=== PATIENT | female | born 1980 | race Caucasian/White ===

== ENCOUNTER 2020-08-31 19:22 | Emergency (ER) | payer OTHER, SELFPAY ==
[2020-08-31 19:43] VITALS: BP 145/94; PULSE 78; RESP 24; TEMP 36.5; O2SAT 100
--- NOTE | 2020-08-31 19:44 | ED.URI ---
HPI - URI/Sore Throat General Chief Complaint: Upper Respiratory Infection Stated Complaint: Cough,congestion Time Seen by Provider: 08/31/20 19:47 Source: patient Mode of arrival: ambulatory Limitations: no limitations History of Present Illness HPI Narrative: Mariluz Green is a 39 yo female with asthma Ms. to [facility] stating that she is having difficulty catching her breath but she has had cold symptoms for the last week they have worsened in the last 3 days and she has been using her albuterol inhaler couple times a day; she seems excited, with a cough which is nonproductive Related Data Home Medications Medication Instructions Recorded Confirmed alprazolam 08/31/20 ketorolac 08/31/20 mirtazapine mg 08/31/20 vit no.[id number] tablet 08/31/20 [Classic ] sertraline mg 08/31/20 Allergies Allergy/AdvReac Type Severity Reaction Status Date / Time codeine Allergy Unknown Verified 04/03/14 14:39 morphine Allergy Unknown Verified 04/03/14 14:39 OXYCODONE HCL Allergy Unknown Uncoded 04/03/14 14:39 Review of Systems Review of Systems: Narrative: CONSTITUTIONAL: Denies fever, chills, sweats. EYES: Denies visual changes, redness, discharge. ENT:has rhinorrhea, has congestion, no sore throat, otalgia. CARDIOVASCULAR: Denies chest pain, palpitations, edema. RESPIRATORY: Denies dyspnea, mild wheezing, productive cough GASTROINTESTINAL: Denies abdominal pain, nausea, vomiting, diarrhea. GENITOURINARY: Denies dysuria, hematuria, abnormal discharge SKIN: Denies rash or itching. NEUROLOGIC: Denies numbness, or focal weakness. PSYCHIATRIC: Denies anxiety or depression. [facility] Past Medical History Medical History Asthma Family History Family History Other No acute medical problems Social History Social History Smoking status: Never smoker Alcohol intake: never Comments At time of signature, I agree with nursing past medical, surgical, social and family history. There is no relevant family history pertinent to the presenting complaint. Exam Narrative: Exam Narrative: GENERAL: This is a well-nourished, well-developed patient, in moderate distress. Seems anxious and upset HEAD: normocephalic, atraumatic. EYES: Sclera clear/white. Vision is grossly intact. EARS: External ears normal, Hearing grossly intact. NOSE: External nose normal without nasal discharge, nares without redness, has rhinorrhea. THROAT: Mucous membranes moist, posterior pharynx erythema-able to swallow ambulating so I could hear her lungs, spoke to nurse in full sentences NECK: Neck supple, non-tender CARDIOVASCULAR: Regular rate and rhythm without murmurs, gallops, or rubs. RESPIRATORY: Clear to auscultation. Breath sounds equal bilaterally. Patient wheezes, no rales, or rhonchi. GASTROINTESTINAL: Abdomen soft, non-tender, SKIN: warm, intact with no suspicious lesions or rash, good texture and turgor. NEURO: awake, alert, and oriented to person, place and time. There were no obvious focal neurologic abnormalities. Steady gait EXTREMITIES: Normal range of motion. BACK: Nontender without deformity Course Course Emergency Course: Patient here complaining of some shortness of breath and upper respiratory symptoms including cough Strep test neg Rapid Covid neg Flu + Flu B Given Solu-Medrol, x5 days cough medication renewal of albuterol inhaler Zyrtec in the a.m.good handwashing, hydrate well Follow-up with PCP Vital Signs Vital signs: Vital Signs Temperature 97.7 F 08/31/20 19:43 Pulse Rate 78 08/31/20 19:43 Respiratory Rate 24 H 08/31/20 19:43 Blood Pressure 145/94 H 08/31/20 19:43 Pulse Oximetry 100 08/31/20 19:43 Temperature 97.7 F 08/31/20 19:55 Pulse Rate 78 08/31/20 19:55 Respiratory Rate 24 H 08/31/20 1
[2020-08-31] MEDS: methylPREDNISolone SOD SUCC 125 MG VIAL IM (19:54)
[2020-08-31 19:55] VITALS: BP 145/94; PULSE 78; RESP 24; TEMP 36.5; O2SAT 100
[2020-09-02 11:54] LABS: SARS-CoV-2 RNA PCR Negative
== END 2020-08-31 20:10 | disposition home or self-care (01) ==
PROVIDERS: Emergency Provider Nurse Practitioner; PCP Nurse Practitioner Family
DX: J11.1 Influenza due to unidentified influenza virus with other respiratory manifestations (principal); J45.21 Mild intermittent asthma with (acute) exacerbation; Z20.822 Contact with and (suspected) exposure to COVID-19
CPT/HCPCS: 87081; 87426; 87804; 87880; 96372; 99203; C9803; G0463; J2930; U0003; U0005

== ENCOUNTER 2020-09-14 09:17 | Emergency (ER) | payer OTHER, SELFPAY ==
--- NOTE | ~2020-09-14 | US_ITS ---
EXAMINATION: US pelvic complete w TV DATE: 09/14/2020 12:17 INDICATION: Pelvic pain. TECHNIQUE: Multiple transabdominal and transvaginal sonographic images of the pelvis were obtained. COMPARISON: CT abdomen and pelvis 09/14/2020 FINDINGS: TRANSABDOMINAL ULTRASOUND: The uterus measures 9.1 x 5.9 x 6.5 cm. There is no free fluid in the pelvis. TRANSVAGINAL ULTRASOUND: The endometrial complex measures 8 in thickness. There are nabothian cysts in the cervix measuring up to 15 mm. The right ovary is absent. The left ovary measures 2.7 x 1.8 x 1.6 cm. There is normal vas cular flow in the left ovary. IMPRESSION: 1. No etiology for the patient's symptoms. 2. Nabothian cysts in the cervix correlate with the CT abnormality. Reviewed, dictated and finalized at location B.
--- NOTE | ~2020-09-14 | CT_ITS ---
EXAMINATION: CT abdomen pelvis w con DATE: 09/14/2020 10:51 INDICATION: Right flank and lower quadrant abdominal pain. TECHNIQUE: Computed tomography (CT) of the abdomen and pelvis was performed with 100 mL Omnipaque-350 intravenous contrast. Automated exposure control and iterative reconstruction technique were employe d. The dose-length product was 226.14 mGy-cm. COMPARISON: 01/21/2013 FINDINGS: Lung bases are clear. Visualized inferior heart appears normal. No pericardial or pleural effusion. L iver, gallbladder, spleen, pancreas, bilateral adrenal glands and kidneys are normal. Bowels includin g the appendix are normal. Decompressed bladder is unremarkable. Tampon within the vaginal vault. Ant everted uterus with multiple small cystic structures at the cervix measuring up to 1.4 cm in maximal diameter which could represent independent nabothian cysts or a multicystic lesion. Bilateral adnexa are unremarkable. Small amount of likely physiologic free fluid in the pelvis. No abscess or free int raperitoneal gas. No pathologically enlarged abdominal or pelvic lymphadenopathy. There are Schmorl's nodes along several of the endplates in the mid and upper lumbar and lower thoracic spine. IMPRESSION: 1. No acute intra-abdominal/pelvic process. 2. Multiple small cystic structures at the cervix. This could represent multiple independent nabothia n cysts or a multiloculated cystic lesion with differential including tunnel cluster, uterine cervici tis, endocervical hyperplasia, metaplasia, endometriosis or adenoma malignum. Consider gynecologic c onsultation and either pelvic ultrasound or MRI for further evaluation. Reviewed, dictated and finalized at location A. IMPRESSION: 1. No acute intra-abdominal/pelvic process. 2. Multiple small cystic structures at the cervix. This could represent multipl e independent nabothian cysts or a multiloculated cystic lesion with differenti al including tunnel cluster, uterine cervicitis, endocervical hyperplasia, meta plasia, endometriosis or adenoma malignum. Consider gynecologic consultation a nd either pelvic ultrasound or MRI for further evaluation.
[2020-09-14 09:30] VITALS: BP 119/92; PULSE 75; RESP 20; TEMP 36.6; O2SAT 99
--- NOTE | 2020-09-14 09:44 | ED.ABDPAIN ---
HPI - Abdominal Pain General Chief Complaint: Abdominal Pain Stated Complaint: back, flank pain Time Seen by Provider: 09/14/20 09:28 Source: patient Mode of arrival: ambulatory Limitations: no limitations History of Present Illness HPI narrative: This is a 39 year old female that presents to the ER for right lower quadrant abdominal pain x 3 days. Reports the pain radiates from her right flank to right lower quadrant. Associated with nausea. Reports the pain worsened today which prompted her to be seen. Denies fever, vomiting, dysuria, hematuria, weakness, numbness or diarrhea. Related Data Home Medications Medication Instructions Recorded Confirmed mirtazapine [Remeron] 45 mg PO DAILY 09/14/20 Allergies Allergy/AdvReac Type Severity Reaction Status Date / Time codeine Allergy Unknown Vomiting Verified 09/14/20 09:25 morphine Allergy Unknown Vomiting Verified 09/14/20 09:25 OXYCODONE HCL Allergy Unknown Vomiting Uncoded 09/14/20 09:25 Review of Systems Review of Systems: Narrative: CONSTITUTIONAL: Denies fever GASTROINTESTINAL: Reports abdominal pain, nausea. Denies vomiting, or diarrhea. GENITOURINARY: Denies dysuria or hematuria. All systems reviewed & are unremarkable except as noted in HPI and below PMFSH Past Medical History Medical History (Updated 09/14/20 @ 13:57 by Brenna Olivia PA-C) Asthma History of spina bifida Family History Family History Other No acute medical problems Social History Social History Smoking status: Never smoker Alcohol intake: never Exam Narrative: Exam Narrative: GENERAL: Well-appearing, well-nourished, and in mild acute distress due to pain. HEAD: Normocephalic, atraumatic. EYES: EOMI. CHEST: Clear to auscultation. No respiratory distress. No wheezes rales or rhonchi HEART: Regular rate and rhythm. No murmur heard. Normal peripheral pulses. ABDOMEN: Soft, nondistended, normal active bowel sounds. Tender to palpation in the right lower quadrant, without guarding. Right sided CVA tenderness EXTREMITIES: Normal range of motion. No edema. SKIN: Warm, dry, no rash. NEURO: No focal deficits. Alert and oriented x3. Normal gait PSYCH: Normal mood and affect PELVIC: Normal external genitalia. Small amount of blood in the vaginal vault. Normal-appearing cervix, no cervical motion tenderness Course Vital Signs Vital signs: Vital Signs Temperature 98 F 09/14/20 09:30 Pulse Rate 75 09/14/20 09:30 Respiratory Rate 20 09/14/20 09:30 Blood Pressure 119/92 H 09/14/20 09:30 Pulse Oximetry 99 09/14/20 09:30 Temperature 98 F 09/14/20 09:30 Pulse Rate 71 09/14/20 12:23 Respiratory Rate 16 09/14/20 12:23 Blood Pressure 104/73 09/14/20 11:11 Pulse Oximetry 100 09/14/20 12:23 MDM - Abdominal Pain MDM Narrative Medical decision making narrative: Patient presents the emergency department for right-sided mid back pain radiating to the abdomen. She is afebrile and nontoxic-appearing. Vitals are stable. She is neurologically intact. CBC with mild leukocytosis to 11.1. Metabolic panel without concerning findings. Lipase is normal. UA without evidence of infection, does show red blood cells likely due to patient currently being on her menstrual cycle. Bedside test is negative. CT scan of the abdomen and pelvis is without acute findings. Shows multiple small cystic structures at the cervix. Recommend pelvic ultrasound or MRI for further evaluation. Pelvic ultrasound is also without acute findings. Nabothian cysts in the cervix correlate with the CT abnormality. Trichomonas was negative, chlamydia and gonorrhea were sent. Patient would like to follow-up for results. Reports no concern of STDs. Patient and family updated on case findings. She is stable and felt appropriate for further outpatient evaluation. She is to f
[2020-09-14 09:48] LABS: Basophils Absolute Auto 0.1 K/mm3 (0.0-0.1); Basophils Percent Auto 0.6 % (0.2-1.2); Eosinophils Absolute Auto 0.1 K/mm3 (0-0.3); Eosinophils Percent Auto 1.3 % (0-4.4); Hematocrit 38.9 % (37.0-47.0); Immature Granulocyte Absolute 0.05 K/mm3 (0.00-0.031); Immature Granulocyte Percent A 0.4 % (0-0.5); Lymphocytes Absolute Auto 1.86 K/mm3 (0.9-3.2); Lymphocytes Percent Auto 16.7 % (18.3-44.2); Mean Corpuscular HGB Conc 30.8 g/dl (32-36); Mean Corpuscular Hemoglobin 25.4 pg (26-34); Mean Corpuscular Volume 82.2 fl (80-100); Mean Platelet Volume 10.1 fl (7.4-10.4); Monocytes Absolute Auto 0.5 K/mm3 (0.1-0.6); Monocytes Percent Auto 4.6 % (2.6-8.5); Neutrophils Absolute Auto 8.5 K/mm3 (1.3-6.7); Neutrophils Percent Auto 76.4 % (45.5-73.1); Platelet Count Result 216 k/mm3 (150-375); Red Blood Count 4.73 M/mm3 (4.2-5.4); Red Cell Distribution Width 15.9 % (11.5-14.5); White Blood Count 11.1 K/mm3 (4.5-10.0)
--- NOTE | 2020-09-14 09:53 | PC.NURSE ---
Pt unable to provide urine sample at this time.
[2020-09-14 10:01] LABS: Alanine Aminotransferase 9 U/L (4-35); Albumin Level 4.5 g/dL (3.5-5.1); Alkaline Phosphatase 44 U/L (38-126); Anion Gap 5 mmol/L (8-16); Aspartate Amino Transferase 25 U/L (14-36); Bilirubin,Total 0.2 mg/dL (0.2-1.3); Blood Urea Nitrogen 8 mg/dL (7-17); Calcium 8.5 mg/dL (8.4-10.2); Carbon Dioxide 27 mmol/L (22-30); Chloride 106 mmol/L (98-107); Estimated CRCL calculation 125 ml/min; Estimated Glomerular Filt Rate > 60; Glucose 91 mg/dL (65-105); Lipase 145 U/L (23-300); Potassium 3.8 mmol/L (3.4-5.0); Sodium 138 mmol/L (137-145)
--- NOTE | 2020-09-14 10:25 | PC.NURSE ---
Pt attempting to provide urine sample at this time.
[2020-09-14 10:41] LABS: Add Urine Microscopic? YES; Appearance Urine Clear (Clear); Bilirubin Urine Negative (Negative); Blood Urine 2+ (Negative); Color Urine Yellow (Yellow); Glucose Urine UA Negative (Negative); Ketones Urine Negative (Negative); Leukocyte Esterase Ur Negative LEU/UL (Negative); Mucus Urine Rare /lpf; Nitrate Urine Negative (Negative); Protein Urine Negative (Negative); RBC Urine 21-50 /hpf (0-2); Specific Grav Ur 1.019 (1.001-1.035); Squamous Epithelial Cell Urine Many /hpf (Few); Urobilinogen Urine Negative mg/dL (<2.0); WBC Urine 0-3 /hpf
[2020-09-14] MEDS: ONDANSETRON INJ 4 MG/2 ML VIAL IV PUSH (11:09)
[2020-09-14] MEDS: MORPHINE SULFATE (*CRX) 2 MG/ML INJ IV PUSH (11:09)
[2020-09-14 11:11] VITALS: BP 104/73; PULSE 73; RESP 18; O2SAT 100
[2020-09-14 12:23] VITALS: PULSE 71; RESP 16; O2SAT 100
[2020-09-14] MEDS: KETOROLAC 30 MG/ML VIAL (*BKC) IV PUSH (12:39)
--- NOTE | 2020-09-14 13:49 | PC.NURSE ---
Physician speech and language assistant at bedside to discuss test results and treatment plan with pt.
[2020-09-14 14:05] VITALS: BP 106/77; PULSE 69; RESP 18; O2SAT 100
== END 2020-09-14 14:12 | disposition home or self-care (01) ==
PROVIDERS: Physician Assistant; Emergency Provider Emergency Medicine; PCP Nurse Practitioner Family
DX: M54.5 Low back pain (principal); J45.909 Unspecified asthma, uncomplicated; N88.8 Other specified noninflammatory disorders of cervix uteri; Q05.9 Spina bifida, unspecified
CPT/HCPCS: 36415; 74177; 76830; 76856; 80053; 81001; 81025; 83690; 85025; 87070; 87491; 87591; 87808; 96365; 96375; 99284; J0131; J1885; J2270; J2405; Q9967

== ENCOUNTER 2020-12-03 13:45 | Inpatient (IN) | payer OTHER, SELFPAY ==
[2020-12-03] VITALS (9 sets, daily range): BP systolic 92–126; BP diastolic 65–88; PULSE 67–110; RESP 16–18; TEMP 36.2–37.4; O2SAT 100; BMI 22.0
--- NOTE | ~2020-12-03 | CT_ITS ---
EXAMINATION: CT abdomen pelvis w con DATE: 12/03/2020 16:03 INDICATION: Epigastric pain TECHNIQUE: Computed tomography (CT) of the abdomen and pelvis was performed with 100 cc Omnipaque 350 intravenous contrast. The dose-length product was 252.32 mGy-cm. Automated exposure control and iter ative reconstruction technique were employed. COMPARISON: CT dated 09/14/2020 FINDINGS: Lung bases are unremarkable. Heart size normal. No significant pleural or pericardial effus ion. The liver, spleen, pancreas, adrenal glands and kidneys are unremarkable. Gallbladder is present . There are fluid-filled mildly distended small bowel loops with possible transition in the right mid abdomen, coronal image 32, suspicious for small bowel obstruction. No free air or free fluid. There is endometrial thickening with multiple cystic lesions at the cervix, likely nabothian cysts. There i s an involuting corpus luteal cyst measuring 2.1 cm and the left ovary. Small amount of free fluid in the pelvis. No acute osseous abnormality. IMPRESSION: 1. Limited small bowel with air-fluid levels. Possible transition point right mid abdomen. Findings s uspicious for small bowel obstruction. 2: Endometrial thickening. Involuting left ovarian corpus luteal cyst. Small amount of free fluid in the pelvis. Reviewed, dictated and finalized at location A. IMPRESSION: 1. Limited small bowel with air-fluid levels. Possible transition point right m id abdomen. Findings suspicious for small bowel obstruction. 2: Endometrial thickening. Involuting left ovarian corpus luteal cyst. Small am ount of free fluid in the pelvis.
--- NOTE | ~2020-12-03 | XR_ITS ---
XR abdomen NG/feed tube insert INDICATION: Evaluate G-tube position. TECHNIQUE: Limited KUB perform for evaluating NG tube . COMPARISON: 04/03/2014 FINDINGS: NG tube tip in the stomach. Visualized bowel gas pattern is unremarkable.There is residual contrast in nondilated renal collecting systems. IMPRESSION: 1: NG tube tip in the stomach. Reviewed, dictated and finalized at location A.
--- NOTE | ~2020-12-03 | XR_ITS ---
EXAMINATION: XR sm bowel follow through WS DATE: 12/04/2020 13:43 INDICATION: Small bowel obstruction TECHNIQUE: Advertising Specialist radiograph(s) of the abdomen was/were obtained. Oral contrast was administered, and sequential radiographs of the abdomen were obtained until oral contrast was noted to be in the proxi mal colon. COMPARISON: KUB dated 12/04/[address] dated 12/03/2020 FINDINGS: Advertising Specialist image demonstrates gas scattered throughout multiple loops of nondilated large and small bowel in the abdomen and pelvis. Nasogastric tube tip in proximal side port in the stomach. Transit time fr om the stomach to proximal colon was between 15 and 30 minutes. There is normal caliber and mucosal f old pattern throughout the small bowel. Terminal ileum is normal. IMPRESSION: 1. Normal small bowel follow-through. Reviewed, dictated and finalized at location A.
--- NOTE | ~2020-12-03 | XR_ITS ---
EXAMINATION: XR abdomen obstructive series DATE: 12/04/2020 05:47 INDICATION: Bowel obstruction. TECHNIQUE: Upright and supine views of the abdomen were obtained. COMPARISON: CT abdomen and pelvis 12/03/2020 FINDINGS: There are no dilated loops of bowel. There is a moderate volume of stool in the colon. No f ree intraperitoneal gas. The nasogastric tube tip is in the stomach. IMPRESSION: 1. Normal bowel gas pattern. Reviewed, dictated and finalized at location A.
[2020-12-03 14:16] LABS: Basophils Absolute Auto 0.1 K/mm3 (0.0-0.1); Eosinophils Absolute Auto 0.1 K/mm3 (0-0.3); Eosinophils Percent Auto 2.4 % (0-4.4); Hematocrit 36.2 % (37.0-47.0); Hemoglobin 11.1 g/dL (12.0-15.0); Immature Granulocyte Absolute 0.02 K/mm3 (0.00-0.031); Immature Granulocyte Percent A 0.4 % (0-0.5); Lymphocytes Absolute Auto 1.56 K/mm3 (0.9-3.2); Lymphocytes Percent Auto 30.6 % (18.3-44.2); Mean Corpuscular HGB Conc 30.7 g/dl (32-36); Mean Corpuscular Hemoglobin 24.6 pg (26-34); Mean Corpuscular Volume 80.3 fl (80-100); Mean Platelet Volume 9.8 fl (7.4-10.4); Monocytes Absolute Auto 0.5 K/mm3 (0.1-0.6); Monocytes Percent Auto 9.6 % (2.6-8.5); Neutrophils Absolute Auto 2.9 K/mm3 (1.3-6.7); Platelet Count Result 217 k/mm3 (150-375); Red Blood Count 4.51 M/mm3 (4.2-5.4); Red Cell Distribution Width 14.2 % (11.5-14.5); White Blood Count 5.1 K/mm3 (4.5-10.0)
[2020-12-03 14:25] LABS: Alanine Aminotransferase 10 U/L (4-35); Albumin Level 4.3 g/dL (3.5-5.1); Alkaline Phosphatase 50 U/L (38-126); Anion Gap 10 mmol/L (8-16); Aspartate Amino Transferase 24 U/L (14-36); Bilirubin,Total 0.2 mg/dL (0.2-1.3); Blood Urea Nitrogen 8 mg/dL (7-17); Calcium 8.6 mg/dL (8.4-10.2); Carbon Dioxide 25 mmol/L (22-30); Chloride 104 mmol/L (98-107); Estimated CRCL calculation 105 ml/min; Estimated Glomerular Filt Rate > 60; Glucose 91 mg/dL (65-105); Lipase 128 U/L (23-300); Potassium 3.7 mmol/L (3.4-5.0); Sodium 139 mmol/L (137-145)
--- NOTE | 2020-12-03 15:02 | ED.ABDPAIN ---
HPI - Abdominal Pain General Chief Complaint: Abdominal Pain <CRISTIANO Ayala - Last Filed: 12/03/20 18:00> Stated Complaint: abd pain <CRISTIANO Ayala - Last Filed: 12/03/20 18:00> Time Seen by Provider: 12/03/20 14:27 <CRISTIANO Ayala - Last Filed: 12/03/20 18:00> Source: patient <CRISTIANO Ayala - Last Filed: 12/03/20 18:00> Mode of arrival: ambulatory <CRISTIANO Ayala - Last Filed: 12/03/20 18:00> Limitations: no limitations <CRISTIANO Ayala - Last Filed: 12/03/20 18:00> History of Present Illness HPI narrative: Patient is a 40-year-old female who presents complaining of abdominal pain with nausea and diarrhea x2 to 3 days. Patient reports cramping upper abdominal pain that radiates to back. She denies urinary complaints. She reports taking [id number] medications without relief. She denies chest pain, sob, cough or fever. She denies all other complaints. <CRISTIANO Ayala - Last Filed: 12/03/20 18:00> MD elicited complaint: abdominal pain <CRISTIANO Ayala - Last Filed: 12/03/20 18:00> Related Data Home Medications: Home Medications Medication Instructions Recorded Confirmed mirtazapine [Remeron] 45 mg PO DAILY 09/14/20 <CRISTIANO Ayala - Last Filed: 12/03/20 18:00> Allergies/Adverse Reactions: Allergies Allergy/AdvReac Type Severity Reaction Status Date / Time codeine Allergy Unknown Vomiting Verified 09/14/20 09:25 morphine Allergy Unknown Vomiting Verified 09/14/20 09:25 OXYCODONE HCL Allergy Unknown Vomiting Uncoded 09/14/20 09:25 <CRISTIANO Ayala - Last Filed: 12/03/20 18:00> Review of Systems Review of Systems: Narrative: CONSTITUTIONAL: Denies fever, chills, or sweats. EYES: Denies visual changes, redness, or discharge. ENT: Denies rhinorrhea, congestion, sore throat, or otalgia. CARDIOVASCULAR: Denies chest pain, palpitations, or edema. RESPIRATORY: Denies cough or dyspnea. GASTROINTESTINAL: Reports abdominal pain with nausea and diarrhea GENITOURINARY: Denies dysuria or hematuria. SKIN: Denies rash or itching. MUSCULOSKELETAL: Denies back pain, joint pain, or myalgia. NEUROLOGIC: Denies headache, numbness, dizziness, or weakness. PSYCHIATRIC: Denies anxiety or depression. <CRISTIANO Ayala - Last Filed: 12/03/20 18:00> [facility] Past Medical History Medical History: Medical History Asthma History of spina bifida <CRISTIANO Ayala - Last Filed: 12/03/20 18:00> Family History Family History: Family History Other No acute medical problems <CRISTIANO Ayala - Last Filed: 12/03/20 18:00> Social History Social History: Social History (Updated 12/03/20 @ 15:06 by CRISTIANO Ayala) Smoking status: Never smoker Alcohol intake: never Substance use: never Living arrangements: with family <CRISTIANO Ayala - Last Filed: 12/03/20 18:00> Comments At the time of signature, I have reviewed and agree with nursing past medical, surgical, social, and family history unless otherwise noted. Please see nursing chart for further information. There is no relevant family history pertinent to the presenting complaint. <CRISTIANO Ayala - Last Filed: 12/03/20 18:00> Exam Narrative: Exam Narrative: GENERAL: Well-appearing, well-nourished, and in no acute distress. HEAD: Normocephalic, atraumatic. EYES: EOMI. No redness or drainage. Conjunctiva are normal. ENT: Mucous membranes pink and moist. CHEST: No respiratory distress. Clear to auscultation. HEART: Regular rate and rhythm. No murmur appreciated. Normal peripheral pulses. GI: Soft, generalized tenderness with palpation. No distention. Bowel sounds normal in all quadrants. MUSCULOSKELETAL: No bony tenderness. EXTREMITIES: Normal range of motion. No tiffanie
[2020-12-03 15:25] LABS: Add Urine Microscopic? YES; Amorphous Sediment Urine Few; Appearance Urine Cloudy (Clear); Bacteria Urine Trace /hpf; Bilirubin Urine Negative (Negative); Blood Urine Negative (Negative); Color Urine Yellow (Yellow); Glucose Urine UA Negative (Negative); Ketones Urine Negative (Negative); Leukocyte Esterase Ur 2+ LEU/UL (Negative); Mucus Urine Few /lpf; Nitrate Urine Negative (Negative); Protein Urine Negative (Negative); Specific Grav Ur 1.028 (1.001-1.035); Squamous Epithelial Cell Urine Many /hpf (Few); Urobilinogen Urine Negative mg/dL (<2.0)
[2020-12-03] MEDS: SODIUM CHLORIDE 0.9% IV 1,000 ML 999 ML IV CONT (16:45)
[2020-12-03] MEDS: MORPHINE SULFATE (*CRX) 4 MG/ML INJ IV PUSH ×2 (16:46→20:10)
[2020-12-03] MEDS: ONDANSETRON INJ 4 MG/2 ML VIAL IV PUSH ×2 (16:46→20:11)
[2020-12-03] MEDS: LORazepam INJ (*CRX) 2 MG/ML VIAL 1 MG IV PUSH (17:57)
--- NOTE | 2020-12-03 19:30 | PM.IMHP ---
H&P: HPI History of Present Illness Date/Time: 12/03/20 19:30 Chief Complaint: Abdominal pain. Narrative: This is a previously healthy 40-year-old female who presented to the emergency department earlier today via private vehicle from home for evaluation of abdominal pain. She reports a gradual onset of diffuse periumbilical cramping discomfort starting about 3 days ago. The cramping seems to radiate somewhat through to the back and she gives no significant aggravating or alleviating factors. She has been taking ibuprofen at home which is unfortunately not helped with the discomfort. Additionally she reports pretty significant nausea and she has been having small, loose stools with the last being this morning. CT of the abdomen and pelvis done the emergency department showed findings suspicious for small-bowel obstruction and she is being admitted in this setting. CT also showed thickened endometrium and a left ovarian corpus luteal cyst which she does have a history of as well as nabothian cysts of the cervix. She also mentions that she is close to starting her menstrual cycle. She has no history of ileus or bowel obstruction but does occasionally have problems with constipation. She denies hematemesis, melena, and hematochezia. No fever, chills, or sweats. No chest pain or shortness of breath. Review of Systems Review of Systems: Narrative: Twelve systems were reviewed with pertinent positives and negatives as per HPI. Except as documented, all other systems were reviewed and are negative. [facility] Past Medical History Medical History (Updated 12/03/20 @ 23:17 by Bibi Tello PA-C) Anxiety Asthma Spina bifida Surgical History Surgical History (Updated 12/03/20 @ 23:13 by Bibi Tello PA-C) History of arthroscopic knee surgery History of dilation and curettage History of tubal ligation Family History Family History (Updated 12/03/20 @ 23:14 by Bibi Tello PA-C) Other Cancer Cerebrovascular accident Hypertension Social History Social History (Updated 12/03/20 @ 23:14 by Bibi Tello PA-C) Social History: Surrogate decision maker: dana Etienne?. Code status: Full code. Smoking status: Never smoker Alcohol intake: never Substance use: never Living arrangements: with family Additional living arrangements comments: Resides in [place] with her fiance. Occupation/Education: occupation Additional occupation/education comments: Works at [employer]. Gender identity (if verbalized by the patient): Female Spiritual care concerns: No Meds Home Medications and Allergies Home Medications Medication Instructions Recorded Confirmed Type cyclobenzaprine 10 mg PO TID PRN #10 tablet 09/14/20 Rx mirtazapine [Remeron] 45 mg PO DAILY 09/14/20 History Allergies Allergy/AdvReac Type Severity Reaction Status Date / Time codeine Allergy Unknown Vomiting Verified 12/03/20 20:15 morphine Allergy Unknown Vomiting Verified 12/03/20 20:15 OXYCODONE HCL Allergy Unknown Vomiting Uncoded 09/14/20 09:25 Vital Signs Vital Signs - 24 hr 12/03/20 14:06 12/03/20 15:30 12/03/20 15:32 Temperature 99.3 F 97.9 F Pulse Rate 77 74 67 Respiratory Rate 18 18 Blood Pressure 102/65 105/78 101/69 Pulse Oximetry 100 100 12/03/20 15:33 12/03/20 15:34 12/03/20 16:48 Temperature Pulse Rate 77 110 H 69 Respiratory Rate 18 Blood Pressure 97/73 L 92/71 L 126/79 Pulse Oximetry 100 12/03/20 18:13 12/03/20 19:48 12/03/20 20:08 Temperature 98.3 F 98.1 F 97.1 F L Pulse Rate 91 77 67 Respiratory Rate 16 17 16 Blood Pressure 113/88 107/74 112/70 Pulse Oximetry 100 100 100 Exam Narrative: Exam Narrative: General: Mildly ill-appearing female sitting up in bed. She gags frequently on the NG tube. Weight: 63.9 kg. BMI: 22.1. HEENT: PERRL, EOMI. NG tube in left naris, draining colorless, slightly opaque fluid with mucoid particulates. Scle
--- NOTE | 2020-12-03 19:50 | ADMGEN ---
This patient, Mariluz Green, was admitted to Medical Room 342-01. Patient/family oriented to hospital policies and general routines including ID bracelet, bed and alarms, visiting hours, pain management, procedures, bathroom and other care routines, personal items, smoking policy, room service/diet, and visiting hours. Information on how to activate the Rapid Response Team has been discussed. Patient/Family are encouraged to report perceived risks to care and to ask questions if they do not understand what they are told or what they should do.
[2020-12-03] MEDS: SODIUM CHLORIDE 0.9% IV 1,000 ML 125 ML IV CONT (20:00)
[2020-12-03] MEDS: PHENOL/SOD PHENO SPRAY CHERRY (*BKC) 1 SPRAY MUCOUS MEM (21:00)
[2020-12-04] MEDS: MORPHINE SULFATE (*CRX) 2 MG/ML INJ IV PUSH ×6 (00:17→20:49)
[2020-12-04] MEDS: PHENOL/SOD PHENO SPRAY CHERRY (*BKC) 1 SPRAY MUCOUS MEM ×2 (04:28→10:35)
--- NOTE | 2020-12-04 04:33 | PC.NURSE ---
Patient complained of pain in her abdomen rating an 8/10. PRN Morphine was administered to the patient via her IV Port. After administration, pt stated, it didn't even go in there. I didn't feel it. This RN explained and showed her that the IV flushes and has excellent blood return, therefore it is in the vein.
[2020-12-04 05:08] VITALS: BP 109/68; PULSE 66; RESP 16; TEMP 36.1; O2SAT 100
[2020-12-04 06:34] LABS: Anion Gap 7 mmol/L (8-16); Blood Urea Nitrogen 5 mg/dL (7-17); Calcium 8.1 mg/dL (8.4-10.2); Carbon Dioxide 25 mmol/L (22-30); Chloride 108 mmol/L (98-107); Estimated CRCL calculation 105 ml/min; Estimated Glomerular Filt Rate > 60; Glucose 84 mg/dL (65-105); Magnesium 1.8 mg/dL (1.6-2.3); Potassium 3.3 mmol/L (3.4-5.0); Sodium 140 mmol/L (137-145)
[2020-12-04 08:39] VITALS: O2SAT 99
[2020-12-04] MEDS: POTASSIUM CHLORIDE 20 MEQ PACKET (FOR LIQUID) PO (09:20)
--- NOTE | 2020-12-04 11:36 | PM.CNGS ---
Assessment and Plan Assessment and plan (1) Small bowel obstruction: Code(s): K56.609 - Unspecified intestinal obstruction, unspecified as to partial versus complete obstruction Status: Acute Assessment and Plan: Ileus versus small bowel obstruction. CT scan reviewed and discussed with the patient in detail. There is evidence of a possible small bowel obstruction with potential transition point in the right mid abdomen. She is showing signs of clinical improvement already this morning and reporting flatus. Her abdominal exam is benign. Abdominal films this morning show no dilated loops of small bowel and some stool in the colon. NG output overnight likely high from intake of large amounts of ice chips. I will go ahead and order a Gastrografin small bowel follow through today to further assess the possible small bowel obstruction. If the contrast moves through to the colon, then we can remove the NG tube and start her on clear liquids. For now, continue NG tube decompression, NPO, IV fluids, and analgesics as needed. Thank you for allowing us to see the patient in consultation and we will continue to follow along with you. (2) Abnormal urinalysis: Code(s): R82.90 - Unspecified abnormal findings in urine Status: Acute Assessment and Plan: She is asymptomatic. The abnormal UA is likely contaminated. Abx deferred by Hospitalist. Additional Plan I have discussed the patient's case and plan of care with Dr. York. History of Present Illness Consult details Consult date: 12/04/20 Reason for consult: other (Small-bowel obstruction) Requesting physician: Sadia Hodges FNP Narrative: This is a 40-year-old female who was otherwise healthy, who presented to the emergency department with complaints of nausea, diarrhea, and upper abdominal pain. She reports having an onset of nausea and diarrhea 2 days ago. Denies any vomiting. She then developed cramping upper abdominal pain yesterday. This pain was persistent and continued through the day, therefore she presented to the emergency department for further evaluation. CT scan of abdomen and pelvis showed mildly dilated fluid-filled small bowel with a possible transition in the right mid abdomen, suspicious for small bowel obstruction. CT also showed thickened endometrium and a left ovarian corpus luteal cyst, which she has a known history of, and noted was nabothian cysts of the cervix. The patient was admitted for the possible small bowel obstruction. She had an NG-tube placed and was made NPO. Our service has been consulted for evaluation of a possible small-bowel obstruction. The patient is now seen on medical floor. She reports feeling better this morning with no abdominal pain after receiving IV morphine this morning. She has not had a bowel movement since yesterday morning. She reports flatus. Her NG output was 1300 cc overnight, but per the nurse she had a large quantity of ice chips overnight. She has had her NG tube clamped for the past hour after receiving KCL through her NG tube, and denies any nausea with this being clamped. Her only previous abdominal surgery includes a laparoscopic tubal ligation about 10 years ago, and a laparoscopic right oophorectomy about 1 year ago. She denies a history of small-bowel obstructions in the past or any previous pain similar to this. No close contacts with similar symptoms. No recent antibiotic use. Review of Systems Review of Systems: All systems reviewed & are unremarkable except as noted in HPI and below Constitutional: Constitutional: Reports as per HPI, Denies chills, Denies fatigue and Denies fever(s) ENT: Reports system reviewed and no additional complaints, except as documented, Reports Normal hearing present and Denies dizziness Cardiovascular: Cardiovascular: Reports no additional cardiovascular complaints, Denies chest pain and Denies leg edema Respiratory: Respiratory: Reports no additional respiratory
--- NOTE | 2020-12-04 12:17 | PM.IMPN ---
Progress Note: A&P Assessment and Plan (1) Small bowel obstruction: Code(s): K56.609 - Unspecified intestinal obstruction, unspecified as to partial versus complete obstruction Status: Acute Assessment and Plan: Patient presents with abdominal pain. SCT showed fluid-filled mildly distended small bowel loops with possible transition in the right mid abdomen c/w pSBO. NGT placed. KUB this morning was normal. NGT clamped and SBFT ordered and results pending. Pull NGT if SBFT series okay and start diet. Encouraged patinet to be out of bed walking in halls as toelrated. (2) Abnormal urinalysis: Code(s): R82.90 - Unspecified abnormal findings in urine Status: Acute Assessment and Plan: UA noted with many squamous epithelial cells. Did not prompt a culture. Suspect contaminated specimen. (3) DVT prophylaxis: Code(s): Z29.9 - Encounter for prophylactic measures, unspecified Status: Acute Assessment and Plan: SCDs Subjective Date/time seen: 12/04/20 12:17 Interval history: 40yo female with anxiety and asthma here for abdominal pain. Patient feels better but stil with abdominal pain. NGT clamped this morning around 930am. No flatus or BMs. No n/v. No CP or SOB. Exam Narrative: Exam Narrative: AF 96.9 109/68 66 16 100%ra Gen - NARD Chest - CTA bilaterally, nml RR CV - RRR S1/S2 Abd - soft. Nondistended. Diffusely tender but no guarding. no rebound. Positive bowel sounds Ext - No pedal edema Psych - depressed mood Skin - Warm and dry Objective Data Vital Signs Vital Signs: Vital Signs - 24 hr 12/03/20 14:06 12/03/20 15:30 12/03/20 15:32 Temperature 99.3 F 97.9 F Pulse Rate 77 74 67 Respiratory Rate 18 18 Blood Pressure 102/65 105/78 101/69 Pulse Oximetry 100 100 12/03/20 15:33 12/03/20 15:34 12/03/20 16:48 Temperature Pulse Rate 77 110 H 69 Respiratory Rate 18 Blood Pressure 97/73 L 92/71 L 126/79 Pulse Oximetry 100 12/03/20 18:13 12/03/20 19:48 12/03/20 20:08 Temperature 98.3 F 98.1 F 97.1 F L Pulse Rate 91 77 67 Respiratory Rate 16 17 16 Blood Pressure 113/88 107/74 112/70 Pulse Oximetry 100 100 100 12/04/20 05:08 12/04/20 08:39 Temperature 96.9 F L Pulse Rate 66 Respiratory Rate 16 Blood Pressure 109/68 Pulse Oximetry 100 99 Intake/Output Intake/Output: Intake & Output 12/01/20 12/02/20 12/03/20 12/04/20 23:59 23:59 23:59 23:59 Intake Total 1170 240 Output Total 200 1700 Balance 970 -1460 Meds/Results Medications: Active Medications Generic Name Dose Route Start Last Admin Trade Name Freq PRN Reason Stop Dose Admin Sodium Chloride 1,000 mls @ 75 mls/hr 12/03/20 18:00 12/03/20 23:36 Normal Saline Iv IV CONT 75 mls/hr .[id number] DOMENIC Infusion Morphine Sulfate 2 mg 12/03/20 23:20 12/04/20 10:29 Morphine Sulfate (*Crx) 2 Mg/Ml Inj IV PUSH 2 mg Q4H PRN Administration Pain Rated 7-10 Ondansetron HCl 4 mg 12/03/20 18:00 12/03/20 20:11 Ondansetron Inj 4 Mg/2 Ml Vial IV PUSH 4 mg Q4H PRN Administration Nausea Phenol 1 spray 12/03/20 20:29 12/04/20 10:35 Phenol/Sod Pheno [place] [facility] (*Bkc) MUCOUS MEM 1 spray PRN PRN Administration Sore Throat Radiology Results: ITS Impressions Abdomen/Pelvis CT 12/03/20 16:13 IMPRESSION: 1. Limited small bowel with air-fluid levels. Possible transition point right mid abdomen. Findings suspicious for small bowel obstruction. 2: Endometrial thickening. Involuting left ovarian corpus luteal cyst. Small amount of free fluid in the pelvis. Abdomen X-Ray 12/04/20 06:29 IMPRESSION: 1. Normal bowel gas pattern. Labs Labs: Laboratory Results - last 24 hr 12/03/20 12/03/20 12/03/20 14:08 14:08 15:14 WBC 5.1 RBC 4.51 Hgb 11.1 L Hct 36.2 L MCV 80.3 MCH 24.6 L MCHC 30.7 L RDW 14.2 Plt Count 217 MPV 9.8 Immature Gran % (Auto
[2020-12-04] MEDS: SODIUM CHLORIDE 0.9% IV 1,000 ML 75 ML IV CONT (12:27)
[2020-12-04] MEDS: ONDANSETRON INJ 4 MG/2 ML VIAL IV PUSH (13:25)
[2020-12-04 14:00] VITALS: BP 115/70; PULSE 72; RESP 20; TEMP 36.4; O2SAT 100
[2020-12-04 20:16] VITALS: BP 115/67; PULSE 76; RESP 16; TEMP 36.1; O2SAT 100
[2020-12-04] MEDS: MIRTAZAPINE 15 MG TABLET 45 MG PO (20:49)
[2020-12-05] MEDS: SODIUM CHLORIDE 0.9% IV 1,000 ML 75 ML IV CONT (02:08)
[2020-12-05 06:00] VITALS: BP 90/62; PULSE 55; RESP 16; TEMP 35.8; O2SAT 99
[2020-12-05 06:22] LABS: Anion Gap 6 mmol/L (8-16); Blood Urea Nitrogen 3 mg/dL (7-17); Calcium 8.1 mg/dL (8.4-10.2); Carbon Dioxide 24 mmol/L (22-30); Chloride 110 mmol/L (98-107); Estimated CRCL calculation 124 ml/min; Estimated Glomerular Filt Rate > 60; Glucose 81 mg/dL (65-105); Magnesium 1.8 mg/dL (1.6-2.3); Potassium 3.5 mmol/L (3.4-5.0); Sodium 140 mmol/L (137-145)
[2020-12-05] MEDS: ACETAMINOPHEN 325 MG TABLET 650 MG PO (08:58)
--- NOTE | 2020-12-05 12:28 | P.PNGS_ITS ---
Progress Note: A&P Assessment and Plan (1) Small bowel obstruction: Code(s): K56.609 - Unspecified intestinal obstruction, unspecified as to partial versus complete obstruction Status: Acute Assessment and Plan: * Resolved. No structural/mechanical obstruction identified. Possibly gastroenteritis related. OK to advance diet and discharge per Hospitalist service. No surgical follow up needed. Subjective Subjective Date/Time Seen: 12/05/20 12:28 Interval history: Tolerating diet. Bowels moving. No more nausea or vomiting. Exam GI: Inspection: non-distended GI Palp: Yes Soft to palpation, No Tenderness to palpation present (GI), No Guarding due to palpation present (GI) and No Rebound tenderness present Auscultation: normal bowel sounds Objective Data Vital Signs Vital Signs: Vital Signs - 24 hr 12/04/20 14:00 12/04/20 20:16 12/05/20 06:00 Temperature 36.4 C 36.1 C L 35.8 C L Pulse Rate 72 76 55 L Respiratory Rate 20 16 16 Blood Pressure 115/70 115/67 90/62 L Pulse Oximetry 100 100 99 Intake/Output Intake/Output: Intake & Output 12/02/20 12/03/20 12/04/20 12/05/20 23:59 23:59 23:59 23:59 Intake Total 1170 2340 2040 Output Total 200 1700 Balance 608 196 0652 Meds/Results Medications: Active Medications Generic Name Dose Route Start Last Admin Trade Name Freq PRN Reason Stop Dose Admin Acetaminophen 650 mg 12/05/20 08:47 12/05/20 08:58 Acetaminophen 325 Mg Tablet PO 650 mg Q6H PRN Administration Mild Pain (1-3) or Fever Mirtazapine 45 mg 12/04/20 21:00 12/04/20 20:49 Mirtazapine 15 Mg Tablet PO 45 mg HS DOMENIC Administration Ondansetron HCl 4 mg 12/03/20 18:00 12/04/20 13:25 Ondansetron Inj 4 Mg/2 Ml Vial IV PUSH 4 mg Q4H PRN Administration Nausea Radiology Results: ITS Impressions Abdomen/Pelvis CT 12/03/20 16:13 IMPRESSION: 1. Limited small bowel with air-fluid levels. Possible transition point right mid abdomen. Findings suspicious for small bowel obstruction. 2: Endometrial thickening. Involuting left ovarian corpus luteal cyst. Small amount of free fluid in the pelvis. Abdomen X-Ray 12/04/20 06:29 IMPRESSION: 1. Normal bowel gas pattern. Small Bowel X-Ray 12/04/20 13:48 IMPRESSION: 1. Normal small bowel follow-through. Labs Labs: Laboratory Results - last 24 hr 12/05/20 05:50 Sodium 140 Potassium 3.5 Chloride 110 H Carbon Dioxide 24 Anion Gap 6 L BUN 3 L Creatinine 0.50 L Estim Creat Clear Calc 124 Estimated GFR > 60 Glucose 81 Calcium 8.1 L Magnesium 1.8 Quality VTE Prophylaxis VTE prophylaxis: mechanical ordered
--- NOTE | 2020-12-05 13:57 | PM.DS ---
DS: Admitting Diagnosis Admitting Diagnosis Admitting Diagnosis: Abdominal pain DS: Discharge Diagnosis Discharge Diagnosis (1) Small bowel obstruction: Code(s): K56.609 - Unspecified intestinal obstruction, unspecified as to partial versus complete obstruction Status: Acute Assessment and Plan: Patient presents with abdominal pain. CT Abdomen/Pelvis showed fluid-filled mildly distended small bowel loops with possible transition in the right mid abdomen c/w pSBO. NGT placed. KUB the next was normal. NGT clamped and SBFT ordered. SBFT results wee normal so NGT removed and she was started on clear liquids. Diet was advanced as she toelrated it. She did well and was able to be discharged home on 12/05/20. (2) Abnormal urinalysis: Code(s): R82.90 - Unspecified abnormal findings in urine Status: Acute Assessment and Plan: UA noted with many squamous epithelial cells. This did not prompt a culture. Suspect contaminated specimen. DS: Summary Hospital Course Reason for hospitalization: 40yo female with anxiety and asthma here for abdominal pain. please see H&P for details. Hospital Course: Please see above for details of hospital course Status at Discharge Cognitive/behavioral status at discharge: stable Time Spent with Patient Time attestation: Total time spent providing and/or coordinating discharge services: 32 minutes Time spent: Greater than 30 minutes Exam Narrative: Exam Narrative: AF 96.5 90/62 55 16 99%ra Gen - NARD Chest - CTA bilaterally, nml RR CV - RRR S1/S2 Abd - soft. Nondistended. mild difuse tenderness without guarding. +BS Ext - No pedal edema Psych - mood improved Skin - Warm and dry DS: Data Data Completed and Pending Labs on day of discharge: Labs from last 24 hours 12/05/20 05:50 Sodium 140 Potassium 3.5 Chloride 110 H Carbon Dioxide 24 Anion Gap 6 L BUN 3 L Creatinine 0.50 L Estim Creat Clear Calc 124 Estimated GFR > 60 Glucose 81 Calcium 8.1 L Magnesium 1.8 Discharge Plan Discharge Attending physician on discharge: Beto Ndiaye Consulting providers: Jonathon York Discharging Clinician: Beto Ndiaye Anticipated Discharge Date/Time: 12/05/20 14:03 Patient Disposition: Home, Self-Care Activity: as tolerated Diet: regular Discharge Instructions: Please avoid large gathering, wear face coverings in public and practice social distance. Contact your doctor or call 911 and come to the Emergency Room if you have worsening abdominal pain or other worrisome symptoms. Avoid NSAIDs (ibuprofen, naproxen, Aleve). Tylenol is safe to take. Follow-up with your primary care provider in 1-2 weeks. Please call for appointment. Patient Instructions: Antibiotic Form, Pain Management (DC), Bowel Obstruction (DC) Stand Alone Forms: General Discharge Information Follow-up/Referrals: Nick,HENOK Balderas [Primary Care Provider] - Call for Appointment Discharge Medications: Continued mirtazapine [Remeron] 45 mg Tablet 45 mg PO DAILY RF: 0 cyclobenzaprine 10 mg tablet 10 mg PO TID PRN (Reason: muscle spasm) Qty: 10 RF: 0 Date of admission: 12/03/20 18:27 Primary Care Provider: NickSherrie Admitting Provider: Parish Cochran Attending physician on admission: Parish Cochran Condition: Stable Quality VTE Prophylaxis VTE prophylaxis: mechanical ordered
[2020-12-05 14:00] VITALS: BP 92/57; PULSE 72; RESP 20; TEMP 35.8; O2SAT 100
== END 2020-12-05 15:59 | disposition home or self-care (01) | DRG 247 ==
LOC: ANHED 17:59 → ANH3MED 23:03
PROVIDERS: Emergency Medicine; Physician Assistant; Admitting Provider Family Medicine; Emergency Provider Nurse Practitioner; PCP Nurse Practitioner Family; Visit Provider Internal Medicine
DX: K56.609 Unspecified intestinal obstruction, unspecified as to partial versus complete obstruction (principal); R82.90 Unspecified abnormal findings in urine; J45.909 Unspecified asthma, uncomplicated; F41.9 Anxiety disorder, unspecified; Q05.9 Spina bifida, unspecified; Z90.721 Acquired absence of ovaries, unilateral
CPT/HCPCS: 36415; 74019; 74177; 74250; 80048; 80053; 81001; 81025; 83690; 83735; 85025; 96361; 96374; 96375; 99285; A9270; J2060; J2270; J2405; J7030; Q9967

== ENCOUNTER 2021-01-30 15:03 | Emergency (ER) | payer OTHER, SELFPAY ==
--- NOTE | 2021-01-30 15:59 | PC.NURSE ---
left prior to triage. not avail when name called.
== END 2021-01-31 04:40 | disposition left against medical advice (07) ==
LOC: ANHED 17:32
PROVIDERS: PCP Nurse Practitioner Family
DX: Z53.21 Procedure and treatment not carried out due to patient leaving prior to being seen by health care provider (principal)
CPT/HCPCS: 99199

== ENCOUNTER 2021-01-30 22:04 | Emergency (ER) | payer OTHER, SELFPAY ==
--- NOTE | ~2021-01-30 | CT_ITS ---
EXAMINATION: CT abdomen pelvis w con DATE: 01/31/2021 03:46 INDICATION: Bilateral lower abdominal pain radiating to the back. TECHNIQUE: Computed tomography (CT) of the abdomen and pelvis was performed with 100 mL Omnipaque 350 intravenous contrast. Automated exposure control and iterative reconstruction technique were employe d. The dose-length product was 269.31 mGy-cm. COMPARISON: CT abdomen and pelvis 12/03/2020 FINDINGS: The visualized portions of the lung bases demonstrate mild atelectasis. No pleural effusion . The heart size is normal. No pericardial effusion. The liver, gallbladder, spleen, pancreas, adrena l glands, and right kidney are normal. There is a 2 mm stone in left kidney. The bladder is distended . There are no dilated loops of bowel. The appendix is normal. Left ovarian vein is enlarged, consist ent with pelvic venous insufficiency. There are no pathologically enlarged lymph nodes. There is no f ree intraperitoneal fluid. There is mild lumbar spondylosis. IMPRESSION: 1. Pelvic venous insufficiency. Reviewed, dictated and finalized at location A.
[2021-01-30 22:58] VITALS: BP 119/82; PULSE 95; RESP 17; TEMP 37.3; O2SAT 100
[2021-01-30 23:12] LABS: Basophils Absolute Auto 0.1 K/mm3 (0.0-0.1); Basophils Percent Auto 0.7 % (0.2-1.2); Eosinophils Absolute Auto 0.1 K/mm3 (0-0.3); Eosinophils Percent Auto 0.6 % (0-4.4); Hematocrit 34.6 % (37.0-47.0); Hemoglobin 10.8 g/dL (12.0-15.0); Immature Granulocyte Absolute 0.04 K/mm3 (0.00-0.031); Immature Granulocyte Percent A 0.4 % (0-0.5); Lymphocytes Absolute Auto 1.94 K/mm3 (0.9-3.2); Lymphocytes Percent Auto 19.5 % (18.3-44.2); Mean Corpuscular HGB Conc 31.2 g/dl (32-36); Mean Corpuscular Hemoglobin 26.2 pg (26-34); Mean Corpuscular Volume 83.8 fl (80-100); Mean Platelet Volume 9.7 fl (7.4-10.4); Monocytes Absolute Auto 0.4 K/mm3 (0.1-0.6); Monocytes Percent Auto 4.4 % (2.6-8.5); Neutrophils Absolute Auto 7.4 K/mm3 (1.3-6.7); Neutrophils Percent Auto 74.4 % (45.5-73.1); Platelet Count Result 198 k/mm3 (150-375); Red Blood Count 4.13 M/mm3 (4.2-5.4); Red Cell Distribution Width 15.9 % (11.5-14.5)
[2021-01-30 23:21] LABS: Alanine Aminotransferase 11 U/L (4-35); Albumin Level 4.1 g/dL (3.5-5.1); Alkaline Phosphatase 42 U/L (38-126); Anion Gap 8 mmol/L (8-16); Aspartate Amino Transferase 28 U/L (14-36); Bilirubin,Total 0.2 mg/dL (0.2-1.3); Blood Urea Nitrogen 7 mg/dL (7-17); Calcium 8.6 mg/dL (8.4-10.2); Carbon Dioxide 25 mmol/L (22-30); Chloride 106 mmol/L (98-107); Estimated CRCL calculation 118 ml/min; Estimated Glomerular Filt Rate > 60; Glucose 102 mg/dL (65-110); Lipase 92 U/L (23-300); Potassium 3.5 mmol/L (3.4-5.0); Sodium 139 mmol/L (137-145)
[2021-01-31] VITALS (12 sets, daily range): BP systolic 103–107; BP diastolic 72–77; PULSE 63–78; RESP 18; O2SAT 100
--- NOTE | 2021-01-31 01:47 | ED.ABDPAIN ---
HPI - Abdominal Pain General Chief Complaint: Abdominal Pain Stated Complaint: Abdominal pain Time Seen by Provider: 01/31/21 01:37 Source: patient History of Present Illness HPI narrative: Patient presents with lower abdominal pain. Patient ports she has had pain for the past couple weeks states achy, constant, radiates to her back. Her symptoms are worse today when she started her menses. Given the intensity of the pain today she came to the ER for evaluation. Reports she was seen previously for this couple months ago diagnosed with a bowel obstruction. She denies fevers, nausea, vomiting, diarrhea. Reports last bowel movement was yesterday and she has a bowel movement once every 3 days. Related Data Home Medications Medication Instructions Recorded Confirmed mirtazapine 45 mg PO DAILY 09/14/20 12/03/20 Allergies Allergy/AdvReac Type Severity Reaction Status Date / Time codeine AdvReac Unknown Vomiting Verified 12/03/20 23:30 morphine AdvReac Unknown Vomiting Verified 12/03/20 23:30 oxycodone AdvReac Unknown Vomiting Verified 12/05/20 08:51 Review of Systems Review of Systems: CONSTITUTIONAL: Denies fever, chills, or sweats. EYES: Denies visual changes, redness, or discharge. ENT: Denies rhinorrhea, congestion, sore throat, or otalgia. CARDIOVASCULAR: Denies chest pain, palpitations, or edema. RESPIRATORY: Denies cough or dyspnea. GASTROINTESTINAL: Denies nausea, vomiting, or diarrhea. GENITOURINARY: Denies dysuria or hematuria. SKIN: Denies rash or itching. MUSCULOSKELETAL: Denies back pain, joint pain, or myalgia. NEUROLOGIC: Denies headache, numbness, dizziness, or weakness. PSYCHIATRIC: Denies anxiety or depression. All systems reviewed & are unremarkable except as noted in HPI and below PMFSH Past Medical History Medical History Anxiety Asthma Spina bifida Surgical History Surgical History History of arthroscopic knee surgery History of dilation and curettage History of right oophorectomy History of tubal ligation Family History Family History Other Cancer Cerebrovascular accident Hypertension Social History Social History Social History: Surrogate decision maker: dana Etienne?. Code status: Full code. Smoking status: Never smoker Alcohol intake: never Substance use: never Additional living arrangements comments: Resides in [place] with her jad. Additional occupation/education comments: Works at [employer]. Gender identity (if verbalized by the patient): Female Spiritual care concerns: No Exam Narrative: GENERAL: Well-appearing, well-nourished, and in no acute distress. HEAD: Normocephalic, atraumatic. EYES: PERRLA and EOMI. ENT: Nares clear, no rhinorrhea or epistaxis. Mucous membranes moist. NECK: Supple. No masses. No JVD ABDOMEN: Moderate to severe tenderness in the lower abdomen with guarding but no rebound soft,nondistended, normal active bowel sounds. EXTREMITIES: Normal range of motion. No edema. SKIN: Warm, dry, no rash. NEURO: No focal deficits. Alert and oriented x3. PSYCH: Normal mood and affect. Course Reevaluation(s) Reevaluation #1: Work-up reviewed with patient work-up was clinically unremarkable. She is appropriate for continued outpatient therapies and monitoring. Patient comfortable with outpatient plan. Date: 01/31/21 Time: 06:46 Vital Signs Vital signs: Vital Signs Temperature 37.3 C 01/30/21 22:58 Pulse Rate 95 01/30/21 22:58 Respiratory Rate 17 01/30/21 22:58 Blood Pressure 119/82 01/30/21 22:58 Pulse Oximetry 100 01/30/21 22:58 Temperature 37.3 C 01/30/21 22:58 Pulse Rate 63 01/31/21 07:00 Respiratory Rate 18 01/31/21 07:00 Blood Pressure 103/72
[2021-01-31] MEDS: SODIUM CHLORIDE 0.9% IV 1,000 ML 999 ML IV CONT (02:24)
[2021-01-31] MEDS: MORPHINE SULFATE (*CRX) 4 MG/ML INJ IV PUSH ×2 (02:24→06:47)
[2021-01-31] MEDS: ONDANSETRON INJ 4 MG/2 ML VIAL IV PUSH (02:24)
[2021-01-31 04:17] LABS: Add Urine Microscopic? YES; Appearance Urine Clear (Clear); Bilirubin Urine Negative (Negative); Blood Urine 3+ (Negative); Color Urine Straw (Yellow); Glucose Urine UA Negative (Negative); Ketones Urine Negative (Negative); Leukocyte Esterase Ur Negative LEU/UL (Negative); Nitrate Urine Negative (Negative); Protein Urine Negative (Negative); RBC Urine >75 /hpf (0-2); Squamous Epithelial Cell Urine Occasional /hpf (Few); Urobilinogen Urine Negative mg/dL (<2.0); WBC Urine 0-3 /hpf
[2021-01-31 04:35] LABS: Specific Grav Ur 1.031 (1.001-1.035)
== END 2021-01-31 07:00 | disposition home or self-care (01) ==
PROVIDERS: Emergency Medicine; Emergency Provider Emergency Medicine; PCP Nurse Practitioner Family
DX: K59.00 Constipation, unspecified (principal); R10.30 Lower abdominal pain, unspecified; F41.9 Anxiety disorder, unspecified; J45.909 Unspecified asthma, uncomplicated
CPT/HCPCS: 36415; 74177; 80053; 81001; 81025; 83690; 85025; 96361; 96374; 96375; 96376; 99284; J2270; J2405; J7030; Q9967

== ENCOUNTER 2021-04-26 14:46 | Emergency (ER) | payer OTHER, SELFPAY ==
--- NOTE | ~2021-04-26 | XR_ITS ---
EXAMINATION: XR chest 2V 04/26/2021 16:20 INDICATION: Right upper chest pain PROCEDURE: 2 view chest COMPARISON: 08/09/2014 FINDINGS: The lungs are clear. The cardiomediastinal silhouette is within normal limits. There are no pleural effusions. There is no pneumothorax suspected. IMPRESSION: 1: NO ACUTE CARDIOPULMONARY DISEASE. Reviewed, dictated and finalized at location B. COUNSELOR
[2021-04-26 14:58] VITALS: BP 125/99; PULSE 93; RESP 20; TEMP 36.1; O2SAT 100
--- NOTE | 2021-04-26 16:09 | ED.BACK ---
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 Started 3 days ago, not improving on hydrocodone. History of spina bifida and hydrocodone. Patient denies any fever, chills, nausea, vomiting, chest pain, shortness of breath, trauma.. 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 Patient drove herself to the emergency room. Pain worse with any right upper extremity movement, deep breath, and certain positions. Patient is better with certain positions. And when she remains still. <Sarah Betts MD - Last Filed: 04/26/21 16:32> Related Data Home Medications: Home Medications Medication Instructions Recorded Confirmed mirtazapine 45 mg PO DAILY 09/14/20 12/03/20 <Sarah Betts MD - Last Filed: 04/26/21 16:32> Allergies/Adverse Reactions: Allergies Allergy/AdvReac Type Severity Reaction Status Date / Time codeine AdvReac Unknown Vomiting Verified 12/03/20 23:30 morphine AdvReac Unknown Vomiting Verified 12/03/20 23:30 oxycodone AdvReac Unknown Vomiting Verified 12/05/20 08:51 <Sarah Betts MD - Last Filed: 04/26/21 16:32> Review of Systems Review of Systems: CONSTITUTIONAL: Denies fever, chills, or sweats. EYES: Denies visual changes, redness, or discharge. ENT: Denies rhinorrhea, congestion, sore throat, or otalgia. CARDIOVASCULAR: Denies chest pain, palpitations, or edema. RESPIRATORY: Denies cough or dyspnea. GASTROINTESTINAL: Denies abdominal pain, nausea, vomiting, or diarrhea. GENITOURINARY: Denies dysuria or hematuria. SKIN: Denies rash or itching. MUSCULOSKELETAL: Denies back pain, joint pain, or myalgia. NEUROLOGIC: Denies headache, numbness, or weakness. PSYCHIATRIC: Denies anxiety or depression. <Sarah Betts MD - Last Filed: 04/26/21 16:32> PMFSH Past Medical History Medical History: Medical History Anxiety Asthma Spina bifida <Sarah Betts MD - Last Filed: 04/26/21 16:32> Surgical History Surgical History: Surgical History History of arthroscopic knee surgery History of dilation and curettage History of right oophorectomy History of tubal ligation <Sarah Betts MD - Last Filed: 04/26/21 16:32> Family History Family History: Family History Other Cancer Cerebrovascular accident Hypertension <Sarah Betts MD - Last Filed: 04/26/21 16:32> Social History Social History: Social History Social History: Surrogate decision maker: dana Etienne?. Code status: Full code. Smoking status: Never smoker Alcohol intake: never Substance use: never Additional living arrangements comments: Resides in [place] with her fijamal. Additional occupation/education comments: Works at [employer]. Gender identity (if verbalized by the patient): Female Spiritual care concerns: No <Sarah Betts MD - Last Filed: 04/26/21 16:32> Exam Narrative: General appearance: Well-developed, well-nourished Skin: Normal color H
[2021-04-26] MEDS: KETOROLAC (*BKC) 60 MG/2 ML VIAL IM (16:12)
--- NOTE | 2021-04-26 16:14 | ECG_ITS ---
Measurements Intervals [place] Rate: 66 P: 60 LA: 139 QRS: 73 QRSD: 94 T: 50 QT: 388 QTc: 409 Interpretive Statements SINUS RHYTHM INCOMPLETE RIGHT BUNDLE BRANCH BLOCK BORDERLINE ECG Electronically Signed On 04-26-2021 19:14:50 POLICE GUARD by Quirino Murphy D.O.
[2021-04-26 17:15] LABS: Basophils Absolute Auto 0.1 K/mm3 (0.0-0.1); Basophils Percent Auto 0.9 % (0.2-1.2); Eosinophils Absolute Auto 0.2 K/mm3 (0-0.3); Eosinophils Percent Auto 3.4 % (0-4.4); Immature Granulocyte Absolute 0.03 K/mm3 (0.00-0.031); Immature Granulocyte Percent A 0.5 % (0-0.5); Lymphocytes Absolute Auto 1.73 K/mm3 (0.9-3.2); Lymphocytes Percent Auto 27.1 % (18.3-44.2); Mean Corpuscular HGB Conc 31.3 g/dl (32-36); Mean Corpuscular Hemoglobin 25.8 pg (26-34); Mean Corpuscular Volume 82.7 fl (80-100); Mean Platelet Volume 10.1 fl (7.4-10.4); Monocytes Absolute Auto 0.6 K/mm3 (0.1-0.6); Monocytes Percent Auto 8.6 % (2.6-8.5); Neutrophils Absolute Auto 3.8 K/mm3 (1.3-6.7); Neutrophils Percent Auto 59.5 % (45.5-73.1); Platelet Count Result 234 k/mm3 (150-375); Red Blood Count 3.87 M/mm3 (4.2-5.4); Red Cell Distribution Width 14.5 % (11.5-14.5); White Blood Count 6.4 K/mm3 (4.5-10.0)
[2021-04-26 17:29] LABS: Alanine Aminotransferase 10 U/L (4-35); Albumin Level 4.3 g/dL (3.5-5.1); Alkaline Phosphatase 46 U/L (38-126); Anion Gap 8 mmol/L (8-16); Aspartate Amino Transferase 25 U/L (14-36); Bilirubin,Total 0.3 mg/dL (0.2-1.3); Blood Urea Nitrogen 13 mg/dL (7-17); Calcium 8.6 mg/dL (8.4-10.2); Carbon Dioxide 28 mmol/L (22-30); Chloride 101 mmol/L (98-107); Estimated CRCL calculation 104 ml/min; Estimated Glomerular Filt Rate > 60; Glucose 91 mg/dL (65-110); Potassium 3.7 mmol/L (3.4-5.0); Sodium 137 mmol/L (137-145)
== END 2021-04-26 18:13 | disposition home or self-care (01) ==
PROVIDERS: Emergency Medicine; Emergency Provider Emergency Medicine; PCP Nurse Practitioner Family
DX: M54.9 Dorsalgia, unspecified (principal); Q05.9 Spina bifida, unspecified; F41.9 Anxiety disorder, unspecified
CPT/HCPCS: 36415; 71046; 80053; 85025; 93005; 96372; 99283; J1885

== ENCOUNTER 2021-09-06 18:04 | Emergency (ER) | payer OTHER, SELFPAY ==
[2021-09-06 18:08] VITALS: BP 116/73; PULSE 82; RESP 16; TEMP 36.8; O2SAT 100
--- NOTE | 2021-09-06 18:09 | ED.DENTAL ---
HPI - Dental/Oral General Chief complaint: Dental/Oral Stated complaint: tooth pain Time Seen by Provider: 09/06/21 18:10 Source: patient, RN notes reviewed and old records reviewed Mode of arrival: ambulatory Limitations: no limitations History of Present Illness HPI Narrative: 40-[facility] left upper and lower dental pain, decay and swelling of her gums. Has very poor dentition. Denies any fevers, nausea, vomiting or diarrhea. She has an appointment coming up [facility] next month. MD Complaint: tooth pain Related Data Home Medications Medication Instructions Recorded Confirmed mirtazapine 45 mg PO DAILY 09/14/20 09/06/21 hydrocodone-acetaminophen 10 tablet DIRECTED 09/06/21 09/06/21 Allergies Allergy/AdvReac Type Severity Reaction Status Date / Time codeine AdvReac Unknown Vomiting Verified 12/03/20 23:30 morphine AdvReac Unknown Vomiting Verified 12/03/20 23:30 oxycodone AdvReac Unknown Vomiting Verified 12/05/20 08:51 Review of Systems Review of Systems: All systems reviewed & are unremarkable except as noted in HPI and below Constitutional: Constitutional: Reports no additional constitutional complaints, Denies chills and Denies fever(s) Eyes: Eyes: Reports no additional eye complaints ENT: Reports as per HPI Comments: Dental pain left upper and lower Cardiovascular: Cardiovascular: Reports no additional cardiovascular complaints, Denies chest pain and Denies dyspnea Respiratory: Respiratory: Reports no additional respiratory complaints, Denies cough and Denies dyspnea Musculoskeletal: Musculoskeletal: Reports no additional musculoskeletal complaints Integumentary/Breasts: Skin/Breast: Reports system reviewed and no additional complaints, except as docu Neurologic: Reports system reviewed and no additional complaints, except as documented Psychiatric: Psychiatric: Reports no additional psychiatric complaints Allergic/Immunologic: Allergic/Immunologic: Reports no additional allergic/immunologic complaints [facility] Past Medical History Medical History Anxiety Asthma Spina bifida Surgical History Surgical History History of arthroscopic knee surgery History of dilation and curettage History of right oophorectomy History of tubal ligation Family History Family History Mother Asthma Diabetes mellitus Bipolar disorder Social History Social History Social History: Surrogate decision maker: dana Etienne?. Code status: Full code. Smoking status: Never smoker Alcohol intake: never Substance use: never Additional living arrangements comments: Resides in [place] with her fiance. Additional occupation/education comments: Works at [employer]. Gender identity (if verbalized by the patient): Female Spiritual care concerns: No Comments At the time of my signature, I reviewed and agree with the nursing past medical, surgical, social, and family history. There is no relevant family history pertinent to the patient complaint. Exam Const: General: healthy appearing, no acute distress and alert Nutritional Appearance: well nourished Orientation/consciousness: patient oriented x3 Limitations: no limitations HENMT: Head: normal to inspection Ears: external ears normal, TM's normal bilaterally and EAC's normal General nose exam: Normal external nose present, Normal nares present and Normal nasal mucous membranes and turbinates present Face and sinus: normal facial exam and face symmetric Mouth: Yes malodorous breath Teeth and gingiva: abnormal tooth and associated gingiva upper left tender, with associated gingival edema and other (Dental decay), lower left tender, with associa
== END 2021-09-06 18:20 | disposition home or self-care (01) ==
PROVIDERS: Emergency Provider Nurse Practitioner; PCP Family Medicine
DX: K04.7 Periapical abscess without sinus (principal); J45.909 Unspecified asthma, uncomplicated; Q05.9 Spina bifida, unspecified
CPT/HCPCS: 99213; G0463

== ENCOUNTER 2021-10-27 17:10 | Emergency (ER) | payer OTHER, SELFPAY ==
--- NOTE | ~2021-10-27 | US_ITS ---
EXAMINATION: US pelvic complete w TV DATE: 10/27/2021 19:06 INDICATION: pelvic pain, hx ovarian cyst, r/o torsion TECHNIQUE: Multiple transabdominal and endovaginal sonographic images of the pelvis were obtained. COMPARISON: None. FINDINGS: Uterus: 8.8 x 6.6 x 7.0 cm. Endometrial complex measures 1.3 cm. Right Ovary: Surgically absent. Left Ovary: 4.3 x 2.4 x 2.5 cm. Vascular flow is present. 2.4 cm left ovary and cyst. There is small volume free fluid in the pelvis. Prominent veins in the left adnexa. IMPRESSION: 1. 2.4 cm left ovarian cyst. 2. Prominent left adnexal veins as could be seen with pelvic congestion syndrome. Correlate clinicall y for persistent dull pelvic pain lasting > 6 months, dysmenorrhea, dyspareunia, postcoital ache, and urinary symptoms. Reviewed, dictated and finalized at location K. IMPRESSION: 1. 2.4 cm left ovarian cyst. 2. Prominent left adnexal veins as could be seen with pelvic congestion syndrom e. Correlate clinically for persistent dull pelvic pain lasting > 6 months, dys menorrhea, dyspareunia, postcoital ache, and urinary symptoms.
--- NOTE | ~2021-10-27 | CT_ITS ---
EXAMINATION: CT abdomen pelvis wo con DATE: 10/27/2021 20:18 INDICATION: back pain, low abd pain TECHNIQUE: Computed tomography (CT) of the abdomen and pelvis was performed without intravenous contr ast. Automated exposure control and iterative reconstruction technique were employed. The dose-length product was 277.76 mGy-cm. COMPARISON: 01/31/2021. FINDINGS: Lower thorax: Unremarkable Liver: Normal. Biliary/Gallbladder: Gallbladder is normal. No bile duct dilation. Pancreas: No mass or duct dilation. Spleen: Normal. Adrenals:No mass. Kidneys: Calcinosis. Left lower pole calcifications. No mass or hydronephrosis. GI tract: No small or large bowel dilation. Appendix not currently visualized. Mesentery/Peritoneum: No ascites, mass, or free air. Retroperitoneum: No mass. Pelvis: Pelvic organs are within normal limits. Soft Tissues: Soft tissues and body wall unremarkable. Bones: No acute osseous finding. IMPRESSION: No acute abdominopelvic process. Reviewed, dictated and finalized at location K.
[2021-10-27 17:19] VITALS: BP 116/72; PULSE 82; RESP 14; TEMP 37.2; O2SAT 99
[2021-10-27 17:32] LABS: Appearance Urine Slightly Cloudy (Clear); Bilirubin Urine Negative (Negative); Blood Urine Negative (Negative); Color Urine Yellow (Yellow); Glucose Urine UA Negative (Negative); Ketones Urine Negative (Negative); Leukocyte Esterase Ur 1+ LEU/UL (Negative); Nitrate Urine Negative (Negative); Protein Urine Negative (Negative); Specific Grav Ur 1.025 (1.001-1.035)
[2021-10-27 17:38] LABS: Add Urine Microscopic? YES; Bacteria Urine Trace /hpf; Mucus Urine Few /lpf; Squamous Epithelial Cell Urine Many /hpf (Few)
--- NOTE | 2021-10-27 18:33 | ED.BACK ---
HPI - Back Pain/Injury General Chief Complaint: Back Pain/Injury Stated Complaint: low back pain and bilat. leg pain. Time Seen by Provider: 10/27/21 18:15 Source: patient Mode of arrival: ambulatory Limitations: no limitations History of Present Illness HPI Narrative: This is a 41-year-old female that presents to the emergency department for low back pain present today. Reports the pain is crampy in nature and constant. It radiates into her pelvis and legs. Reports history of an ovarian cyst on the left. Denies fever, vomiting, dysuria, or hematuria. Related Data Home Medications Medication Instructions Recorded Confirmed mirtazapine 45 mg tablet 45 mg PO DAILY 09/14/20 09/06/21 hydrocodone 10 mg-acetaminophen 10 tablet DIRECTED 09/06/21 09/06/21 325 mg tablet Allergies Allergy/AdvReac Type Severity Reaction Status Date / Time codeine AdvReac Unknown Vomiting Verified 12/03/20 23:30 morphine AdvReac Unknown Vomiting Verified 12/03/20 23:30 oxycodone AdvReac Unknown Vomiting Verified 12/05/20 08:51 Review of Systems Review of Systems: CONSTITUTIONAL: Denies fever GASTROINTESTINAL: Reports abdominal pain. Denies nausea, vomiting GENITOURINARY: Denies dysuria or hematuria. MUSCULOSKELETAL: Reports back pain, joint pain, and myalgia. All systems reviewed & are unremarkable except as noted in HPI and below PMFSH Past Medical History Medical History Anxiety Asthma Spina bifida Surgical History Surgical History History of arthroscopic knee surgery History of dilation and curettage History of right oophorectomy History of tubal ligation Family History Family History Mother Asthma Diabetes mellitus Bipolar disorder Social History Social History Social History: Surrogate decision maker: dana Etienne?. Code status: Full code. Smoking status: Never smoker Alcohol intake: never Substance use: never Additional living arrangements comments: Resides in [place] with her fiance. Additional occupation/education comments: Works at [employer]. Gender identity (if verbalized by the patient): Female Spiritual care concerns: No Exam Narrative: GENERAL: Well-appearing, well-nourished, and in no acute distress. HEAD: Normocephalic, atraumatic. EYES: PERRLA and EOMI. ENT: Nares clear, no rhinorrhea or epistaxis. Mucous membranes moist. Oropharynx without tonsillar hypertrophy exudate or other lesions. Bilateral TMs pearly brenner non-bulging NECK: Supple. No adenopathy or masses. CHEST: Clear to auscultation. No respiratory distress. No wheezes rales or rhonchi HEART: Regular rate and rhythm. No murmur heard. Normal peripheral pulses. ABDOMEN: Soft, nondistended, normal active bowel sounds. Tender to palpation throughout the lower abdomen/pelvis, without guarding. No CVA tenderness EXTREMITIES: Normal range of motion. No edema. SKIN: Warm, dry, no rash. NEURO: No focal deficits. Alert and oriented x3. PSYCH: Normal mood and affect Course Vital Signs Vital signs: Vital Signs Temperature 98.9 F 10/27/21 17:19 Pulse Rate 82 10/27/21 17:19 Respiratory Rate 14 10/27/21 17:19 Blood Pressure 116/72 10/27/21 17:19 Pulse Oximetry 99 10/27/21 17:19 Oxygen Delivery Room Air 10/27/21 17:19 Temperature 98.9 F 10/27/21 17:19 Pulse Rate 82 10/27/21 17:19 Respiratory Rate 14 10/27/21 17:19 Blood Pressure 116/72 10/27/21 17:19 Pulse Oximetry 99 10/27/21 17:19 Oxygen Delivery Room Air 10/27/21 17:19 MDM - Back Pain/Injury MDM Narrative Medical decision making narrative: Patient presents to the emergency department for low back pain and pelvic pain. She is afebrile and nontoxic-appearing. CBC is without leukocytosis.
[2021-10-27 19:23] LABS: Basophils Absolute Auto 0.1 K/mm3 (0.0-0.1); Basophils Percent Auto 0.8 % (0.2-1.2); Eosinophils Absolute Auto 0.1 K/mm3 (0-0.3); Eosinophils Percent Auto 1.1 % (0-4.4); Immature Granulocyte Absolute 0.02 K/mm3 (0.00-0.031); Immature Granulocyte Percent A 0.3 % (0-0.5); Lymphocytes Absolute Auto 2.39 K/mm3 (0.9-3.2); Lymphocytes Percent Auto 32.6 % (18.3-44.2); Mean Corpuscular HGB Conc 30.3 g/dl (32-36); Mean Corpuscular Hemoglobin 24.2 pg (26-34); Mean Corpuscular Volume 79.9 fl (80-100); Mean Platelet Volume 10.3 fl (7.4-10.4); Monocytes Absolute Auto 0.6 K/mm3 (0.1-0.6); Neutrophils Absolute Auto 4.2 K/mm3 (1.3-6.7); Neutrophils Percent Auto 57.2 % (45.5-73.1); Platelet Count Result 224 k/mm3 (150-375); Red Blood Count 4.13 M/mm3 (4.2-5.4); Red Cell Distribution Width 15.9 % (11.5-14.5); White Blood Count 7.3 K/mm3 (4.5-10.0)
[2021-10-27 19:33] LABS: Alanine Aminotransferase 8 U/L (6-35); Albumin Level 4.4 g/dL (3.5-5.1); Alkaline Phosphatase 54 U/L (38-126); Anion Gap 6 mmol/L (8-16); Aspartate Amino Transferase 26 U/L (14-36); Bilirubin,Total 0.4 mg/dL (0.2-1.3); Blood Urea Nitrogen 10 mg/dL (7-17); Calcium 8.6 mg/dL (8.4-10.2); Carbon Dioxide 26 mmol/L (22-30); Chloride 105 mmol/L (98-107); Estimated CRCL calculation 104 ml/min; Estimated Glomerular Filt Rate > 60; Glucose 91 mg/dL (65-110); Potassium 3.5 mmol/L (3.4-5.0); Sodium 137 mmol/L (137-145)
[2021-10-27] MEDS: diazePAM INJ (*CRX) 10 MG/2 ML SYRINGE 5 MG IV PUSH (19:44)
== END 2021-10-27 21:33 | disposition home or self-care (01) ==
PROVIDERS: Physician Assistant; Emergency Provider Emergency Medicine; PCP Family Medicine
DX: N30.00 Acute cystitis without hematuria (principal); N94.89 Other specified conditions associated with female genital organs and menstrual cycle; N83.202 Unspecified ovarian cyst, left side; Q05.9 Spina bifida, unspecified; J45.909 Unspecified asthma, uncomplicated
CPT/HCPCS: 36415; 74176; 76830; 76856; 80053; 81001; 81025; 85025; 87086; 87088; 96365; 96375; 99284; J0131; J3360

== ENCOUNTER 2021-11-23 18:29 | Emergency (ER) | payer OTHER, SELFPAY ==
[2021-11-23 18:46] VITALS: BP 101/69; PULSE 69; RESP 16; TEMP 36.9; O2SAT 100
--- NOTE | 2021-11-23 18:46 | ED.SKABFB ---
HPI - Skin/Abscess/Foreign Bdy General Chief complaint: Skin/Abscess/Foreign Body Stated complaint: Blood spots and bruising on leg Time Seen by Provider: 11/23/21 19:04 Source: patient and RN notes reviewed Mode of arrival: ambulatory Limitations: no limitations History of Present Illness HPI narrative: 41-year-old female presents with concern for abnormal bruising, abdominal bloating. She also reports small red dots that are appearing on her skin. She reports the symptoms have been going on for at least several weeks, she is unable to pinpoint an exact time. Reports she has had health problems for quite some time and has been seen frequently in the emergency room over the last year and a half with no answers for her symptoms. 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 She recently has had abdominal bloating. She saw her regulatory internship earlier this week and had a negative serum test. She is scheduled to have an ultrasound of her abdomen for bloating on November 29. She denies any change in her abdomen or bloating since seeing her regulatory internship. She denies any injury or trauma that are related to the bruising. She reports an unintentional weight loss in the last month and a half of approximately 15 pounds MD complaint: other (Abnormal bruising) Related Data Home Medications Medication Instructions Recorded Confirmed mirtazapine 45 mg tablet 45 mg PO DAILY 09/14/20 09/06/21 hydrocodone 10 mg-acetaminophen 10 tablet DIRECTED 09/06/21 09/06/21 325 mg tablet albuterol sulfate 90 mcg/actuation inh inhalation 11/23/21 aerosol inhaler loratadine 10 mg tablet tablet 11/23/21 Allergies Allergy/AdvReac Type Severity Reaction Status Date / Time codeine AdvReac Unknown Vomiting Verified 12/03/20 23:30 morphine AdvReac Unknown Vomiting Verified 12/03/20 23:30 oxycodone AdvReac Unknown Vomiting Verified 12/05/20 08:51 Review of Systems Review of Systems: CONSTITUTIONAL: Reports malaise, chills, sweats, or fever. EYES: Denies redness, or discharge. ENT: Denies rhinorrhea, congestion, swollen lips, swollen tongue CARDIOVASCULAR: Denies chest pain, palpitations, or edema. RESPIRATORY: Denies cough or dyspnea. GASTROINTESTINAL: Denies abdominal pain, nausea, vomiting. Reports abdominal bloating and discomfort SKIN: Reports abnormal bruising and red spots on her skin MUSCULOSKELETAL: Reports leg cramping bilaterally NEUROLOGIC: Denies headache. All systems reviewed & are unremarkable except as noted in HPI and below PMFSH Past Medical History Medical History Anxiety Asthma Spina bifida Surgical History Surgical History History of arthroscopic knee surgery History of dilation and curettage History of right oophorectomy History of tubal ligation Family History Family History Mother Asthma Diabetes mellitus Bipolar disorder Social History Social History Social History: Surrogate decision maker: dana Etienne?. Code status: Full code. Smoking status: Never smoker Alcohol intake: never Substance use: never Additional living arrangements comments: Resides in [place] with her fiance. Additional occupation/education comments: Works at [employer]. Gender identity (if verbalized by the patient): Female Spiritual care concerns: No Comments At time of signature, agree with nursing past medical, surgical, social and family history. There is no relevant family history pertinent to the presenting complaint Exam Narrative: GENERAL: Nontoxic appearing and in no acute distress. HEAD: Normocephalic, atraumatic. EYES: PERRLA, conjunctivae clear, and EOMI. ENT: Mucous membranes moist. Nares clear NECK: Supple. No lymphadenopathy CHEST: Clear to
== END 2021-11-23 19:34 | disposition home or self-care (01) ==
PROVIDERS: Emergency Provider Nurse Practitioner; PCP Family Medicine
DX: R14.0 Abdominal distension (gaseous) (principal); S70.12XA Contusion of left thigh, initial encounter; S70.11XA Contusion of right thigh, initial encounter; X58.XXXA Exposure to other specified factors, initial encounter; J45.909 Unspecified asthma, uncomplicated; Q05.9 Spina bifida, unspecified
CPT/HCPCS: 99211; G0463

== ENCOUNTER 2021-11-24 01:00 | Observation (INO) | payer OTHER, SELFPAY ==
[2021-11-24] VITALS (7 sets, daily range): BP systolic 88–110; BP diastolic 58–71; PULSE 52–80; RESP 16–20; TEMP 36.6–37.1; O2SAT 96–100; BMI 21.0
--- NOTE | ~2021-11-24 | CT_ITS ---
EXAMINATION: CT abdomen pelvis w con DATE: 11/24/2021 03:05 INDICATION: Severe pelvic pain for 3 weeks TECHNIQUE: Computed tomography (CT) of the abdomen and pelvis was performed with 100 CC Omnipaque 300 intravenous contrast. Automated exposure control and iterative reconstruction technique were employe d. Exam dose: 295.20 mGy-cm total exam DLP. COMPARISON: 10/2021 CT abdomen pelvis FINDINGS: The lung bases are clear of infiltrate or consolidation. Normal heart size. No pericardial or pleural effusion. The gallbladder is contracted. No bile duct dilatation. No hepatic, splenic or pancreatic space-occup aldair mass lesion. No pancreatic dilatation. Normal morphology of the adrenal glands. Approximately 3 x 5 mm lower pole nonobstructing left renal calculus. No ureteral calculus or hydrour eteronephrosis is evident on either side. Normal caliber of the abdominal aorta. No intraperitoneal or retroperitoneal or pelvic mass lesion or adenopathy or ascites. The urinary bladder is evacuated. Prominent left adnexal vessels are noted. Moderate amount of fluid in the endometrial cavity. Normal appendix. No bowel obstruction or intraperitoneal free air is detected. Included skeletal structures are unremarkable. IMPRESSION: Prominent left adnexal vessels which may be secondary to pelvic congestion syndrome Normal appendix Nonobstructing lower pole left nephrolithiasis Reviewed, dictated and finalized at [facility] Reviewed, dictated and finalized at [facility]. IMPRESSION: Prominent left adnexal vessels which may be secondary to pelvic co ngestion syndrome Normal appendix Nonobstructing lower pole left nephrolithiasis
--- NOTE | 2021-11-24 01:37 | ED.GENADULT ---
HPI - General Adult General Chief complaint: Unspecified Stated complaint: pain , left [facility] Time Seen by Provider: 11/24/21 01:20 History of Present Illness HPI narrative: 41-year-old female presenting with months of abdominal pain, states that it feels dull, is on both sides, [facility] and her pain has been worsening for the past month. States that the last few days she has also been having some diarrhea. She does have an [employer] but has not been diagnosed with anything yet other than possible pelvic congestion syndrome. Not on any medications for this. She states she has also been tested for STDs and these were negative; she has no vaginal discharge and she is monogamous with little concern for STDs. Related Data Home Medications Medication Instructions Recorded Confirmed mirtazapine 45 mg tablet 45 mg PO DAILY 09/14/20 09/06/21 hydrocodone 10 mg-acetaminophen 10 tablet DIRECTED 09/06/21 09/06/21 325 mg tablet albuterol sulfate 90 mcg/actuation inh inhalation 11/23/21 aerosol inhaler loratadine 10 mg tablet tablet 11/23/21 Allergies Allergy/AdvReac Type Severity Reaction Status Date / Time codeine AdvReac Unknown Vomiting Verified 12/03/20 23:30 morphine AdvReac Unknown Vomiting Verified 12/03/20 23:30 oxycodone AdvReac Unknown Vomiting Verified 12/05/20 08:51 Review of Systems Review of Systems: CONST: No fever. HEENT: No sore throat C/V: No chest pain RESP: No cough GI: Reports abdominal pain[, diarrhea] : Pelvic pain without dysuria or vaginal discharge M/S: No joint pain. SKIN: No rash. NEURO: [No headache or focal numbness or weakness] PSYCH: [No depression] [facility] Past Medical History Medical History Anxiety Asthma Spina bifida Surgical History Surgical History History of arthroscopic knee surgery History of dilation and curettage History of right oophorectomy History of tubal ligation Family History Family History Mother Asthma Diabetes mellitus Bipolar disorder Social History Social History Social History: Surrogate decision maker: dana Etienne?. Code status: Full code. Smoking status: Never smoker Alcohol intake: never Substance use: never Additional living arrangements comments: Resides in [place] with her jad. Additional occupation/education comments: Works at [employer]. Gender identity (if verbalized by the patient): Female Spiritual care concerns: No Exam Narrative: EXAMINATION OF ORGAN SYSTEMS/BODY AREAS: Constitutional: Vital signs per nursing GENERAL: Tearful HEAD: Normal with no signs of head trauma. EYES: EOMI, conjunctiva normal ENT: Hearing grossly intact LUNGS: Nonlabored breathing. HEART: [Regular rate and rhythm] ABD: [Soft], [nontender to palpation] EXT: Normal range of motion SKIN: [No rashes or lesions.] NEURO: [Alert and oriented x 3. No gross focal sensory or strength deficits.] PSYCH: Tearful affect Course Vital Signs Vital signs: Vital Signs Temperature 98.6 F 11/24/21 01:13 Pulse Rate 69 11/24/21 01:13 Respiratory Rate 20 11/24/21 01:13 Blood Pressure 110/71 11/24/21 01:13 Pulse Oximetry 98 11/24/21 01:13 Oxygen Delivery Room Air 11/24/21 01:13 Temperature 98.6 F 11/24/21 01:13 Pulse Rate 67 11/24/21 06:21 Respiratory Rate 18 11/24/21 06:21 Blood Pressure 103/64 11/24/21 06:21 Pulse Oximetry 99 11/24/21 06:21 Oxygen Delivery Room Air 11/24/21 01:13 Medical Decision Making [facility] Narrative Medical decision making narrative: 41-year-old female presenting with acute on chronic pelvic pain, vital signs stable, exam shows tearful and uncomfortable appearing patient but overall soft nontender abdomen, I will repeat
[2021-11-24 02:07] LABS: Basophils Absolute Auto 0.1 K/mm3 (0.0-0.1); Basophils Percent Auto 1.1 % (0.2-1.2); Eosinophils Absolute Auto 0.1 K/mm3 (0-0.3); Hematocrit 29.9 % (37.0-47.0); Hemoglobin 9.1 g/dL (12.0-15.0); Immature Granulocyte Absolute 0.03 K/mm3 (0.00-0.031); Immature Granulocyte Percent A 0.5 % (0-0.5); Lymphocytes Absolute Auto 2.28 K/mm3 (0.9-3.2); Mean Corpuscular HGB Conc 30.4 g/dl (32-36); Mean Corpuscular Hemoglobin 24.3 pg (26-34); Mean Corpuscular Volume 79.7 fl (80-100); Mean Platelet Volume 9.4 fl (7.4-10.4); Monocytes Absolute Auto 0.7 K/mm3 (0.1-0.6); Monocytes Percent Auto 10.4 % (2.6-8.5); Neutrophils Absolute Auto 3.3 K/mm3 (1.3-6.7); Platelet Count Result 202 k/mm3 (150-375); Red Blood Count 3.75 M/mm3 (4.2-5.4); Red Cell Distribution Width 15.9 % (11.5-14.5); White Blood Count 6.5 K/mm3 (4.5-10.0)
[2021-11-24] MEDS: KETOROLAC 15 MG/ML VIAL (*BKC) IV PUSH ×3 (02:14→17:39)
[2021-11-24 02:21] LABS: Alanine Aminotransferase 9 U/L (6-35); Albumin Level 3.8 g/dL (3.5-5.1); Alkaline Phosphatase 41 U/L (38-126); Anion Gap 3 mmol/L (8-16); Aspartate Amino Transferase 22 U/L (14-36); Bilirubin,Total 0.3 mg/dL (0.2-1.3); Blood Urea Nitrogen 11 mg/dL (7-17); Calcium 7.9 mg/dL (8.4-10.2); Carbon Dioxide 26 mmol/L (22-30); Chloride 108 mmol/L (98-107); Estimated CRCL calculation 121 ml/min; Estimated Glomerular Filt Rate > 60; Glucose 90 mg/dL (65-110); Lipase 121 U/L (23-300); Potassium 3.9 mmol/L (3.4-5.0); Sodium 137 mmol/L (137-145)
[2021-11-24 02:33] LABS: Appearance Urine Clear (Clear); Bilirubin Urine Negative (Negative); Blood Urine Negative (Negative); Color Urine Yellow (Yellow); Glucose Urine UA Negative (Negative); Ketones Urine Negative (Negative); Leukocyte Esterase Ur 2+ LEU/UL (Negative); Nitrate Urine Negative (Negative); Protein Urine Trace mg/dL (Negative); pH Urine 7.5 (5.0-9.0)
[2021-11-24 02:36] LABS: Beta HCG Quantitative < 2.39 mIU/ML
[2021-11-24 02:37] LABS: Add Urine Microscopic? YES; Mucus Urine Moderate /lpf; Squamous Epithelial Cell Urine Few /hpf (Few); WBC Urine 16-20 /hpf
[2021-11-24] MEDS: HYDROcodone/acetaminophen (*CRX) 10-325 MG TABLET 1 TAB PO (05:44)
[2021-11-24] MEDS: LACTATED RINGERS 1,000 ML 999 ML IV CONT (05:45)
[2021-11-24 06:30] LABS: SARS-CoV-2 RNA PCR Negative
--- NOTE | 2021-11-24 08:01 | ADMGEN ---
This patient, Mariluz Green, was admitted to 3 [facility] Surg Room 316-01. Patient/family oriented to hospital policies and general routines including ID bracelet, bed and alarms, visiting hours, pain management, procedures, bathroom and other care routines, personal items, smoking policy, room service/diet, and visiting hours. Information on how to activate the Rapid Response Team has been discussed. Patient/Family are encouraged to report perceived risks to care and to ask questions if they do not understand what they are told or what they should do.
--- NOTE | 2021-11-24 09:09 | PM.IMCN ---
Assessment and Plan Assessment and plan (1) Female pelvic congestion syndrome: Code(s): N94.89 - Other specified conditions associated with female genital organs and menstrual cycle Status: Acute Assessment and Plan: OBGYN is primary provider on this case, Hospitalist has been consulted CT of the abdomen and pelvis revealed prominent left adnexal vessels which may be secondary to pelvic congestion syndrome and nonobstructing lower pole left nephrolithiasis. P.r.n. medications administered for pain management P.r.n. Zofran (2) Abnormal urinalysis: Code(s): R82.90 - Unspecified abnormal findings in urine Status: Acute Assessment and Plan: Patient received x1 dose of IV Rocephin in the emergency department. CBC, CMP, UA, reviewed Obtain urine culture Follow temp curve, cultures, WBC, and VS Consider additional doses of Ceftriaxone 1g IV, patient does not currently have a leukocytosis and she is afebrile. (3) Anxiety: Code(s): F41.9 - Anxiety disorder, unspecified Status: Acute Assessment and Plan: Stable (4) Acute abdominal pain: Code(s): R10.9 - Unspecified abdominal pain Status: Acute Assessment and Plan: Patient presented to the emergency department with complaints of abdominal pain for the last several months. CT of the abdomen and pelvis obtained revealed possible pelvic congestion syndrome. OBGYN is primary. Obtain stool cultures, occult stool, H pylori Start Protonix 40 mg daily Prn Zofran P.r.n. pain management HPI Data of Consult Consult date: 11/24/21 Requesting Physician: Rik Lawson MD Primary Care Provider: Fifi RalphMD Consult Narrative Narrative: Mariluz Green is a 41 year old female with a past medical history of anxiety, asthma, spina bifida, and small-bowel obstruction approximately 1 year ago. Patient presented to [facility] with complaints of abdominal pain. She reports the abdominal pain is persistent for months. She could have a transvaginal ultrasound performed on 10/27/2021. Which revealed 2.4 cm left ovarian cyst, prominent left adnexal veins as could be seen with pelvic congestion syndrome. CT of the abdomen in the emergency department at that time also did not reveal an acute abdomen pelvic process. For the past several days the patient has complained of diarrhea, nausea and acute abdominal pain. Patient does follow with an OBGYN but has not been diagnosed with pelvic congestion syndrome according to the patient. Patient also reported that she was tested for STDs and was negative, she also reports she is monogamous. She denies any vaginal discharge. However, the patient was concerned whether not she could be , therefore it hCG was obtained in the emergency department which was essentially negative. Further workup in the emergency department were labs and imaging which revealed a WBC of 6.5, hemoglobin 9.1, hematocrit 29.9, platelet 202, potassium 3.9, sodium 137, BUN 11, creatinine 0.5, glucose 90, normal LFTs and negative COVID-19 PCR. Urinalysis obtained revealed trace protein, 2+ leukocyte esterase, 3-5 RBC and 16-20 wbc's. Subsequently the patient received x1 Rocephin IV P in the emergency department. The repeat CT scan reported the pelvic congestion syndrome with due to you. The emergency department the patient received a 1 time dose of her home dose [place] was. The emergency department spoke with Dr. Lawson for admission and the hospitalist team was consulted for medical comanagement. Upon admission to the floor the patient was started on IV fluids, made NPO, administered Zofran p.r.n., obtain occult stool with stool studies, started on Protonix and pending blood and urine cultures. After further discussion with the patient in the room. She continued to have abdominal pain. She did work with physical therapy however required to use the IV pole for mobilization. Rachel
[2021-11-24 10:08] LABS: CRP < 0.5 mg/dL (<1.0); Magnesium 1.7 mg/dL (1.6-2.3)
[2021-11-24] MEDS: SODIUM CHLORIDE 0.9% IV 1,000 ML 100 ML IV CONT ×2 (10:08→21:12)
[2021-11-24] MEDS: LORATADINE 10 MG TABLET PO (10:08)
[2021-11-24] MEDS: MIRTAZAPINE 15 MG TABLET 45 MG PO (10:08)
[2021-11-24] MEDS: PANTOPRAZOLE SODIUM IV 40 MG VIAL IV PUSH (10:08)
[2021-11-24 11:01] LABS: Amphetamine Screen Urine Negative (Negative); Barbiturate Screen Urine Negative (Negative); Benzodiazepines Screen Urine Negative (Negative); Cannabinoid Screen Urine Negative (Negative); Cocaine Screen Urine Negative (Negative); Methadone Screen Urine Negative (Negative); Opiate Screen Urine Positive (Negative); Phencyclidine Screen Urine Negative (Negative)
--- NOTE | 2021-11-24 12:39 | PM.IMHP ---
H&P: HPI History of Present Illness Date/Time: 11/24/21 12:39 Chief Complaint: Pain Narrative: 41 y/o here with pain. LMP 11/12/21. H/o BTL. Pain in lower abdomen fairly steadily for a month, worse after intercourse. Acute worsening of pain yesterday, prompting ED visit. ED physician recommended admission for pain control. No fever. Some dysuria. Loose stools twice daily, last BM yesterday. No blood in stool. [place] bloated so she came to our office for a preg test last week -- she says this was negative. She had surgery for spina bifida as a baby, and says her PCP gives her chronic hydrocodone. She says she takes 10 mg hydrocodone twice daily every day. Review of Systems Review of Systems: All systems reviewed & are unremarkable except as noted in HPI and below PMFSH Past Medical History Medical History Anxiety Asthma History of small bowel obstruction Spina bifida Surgical History Surgical History History of arthroscopic knee surgery History of dilation and curettage History of right oophorectomy History of tubal ligation Family History Family History Mother Asthma Diabetes mellitus Bipolar disorder Social History Social History Social History: Surrogate decision maker: dana Etienne?. Code status: Full code. Smoking status: Never smoker Alcohol intake: never Substance use: never Substance use type: does not use Additional living arrangements comments: Resides in [place] with her jad. Additional occupation/education comments: Works at [employer]. Gender identity (if verbalized by the patient): Female Spiritual care concerns: No Comments Past OB History: x 5. SAB x 1, with one requiring a D&C. Past DIRECTOR OF ACCOUNTS PAYABLE History: Menarche at 15 with monthly menses lasting 7-10 days. No new sexual partner. History of right oophorectomy for tumor. Meds Home Medications and Allergies Home Medications Medication Instructions Recorded Confirmed Type mirtazapine 45 mg tablet 45 mg PO DAILY 09/14/20 11/24/21 History hydrocodone 10 mg-acetaminophen 10 tablet PO DIRECTED 09/06/21 11/24/21 History 325 mg tablet albuterol sulfate 90 mcg/actuation 2 inh inhalation Q6H PRN Shortness 11/23/21 11/24/21 History aerosol inhaler Of Breath Or Wheezing loratadine 10 mg tablet 1 tablet PO DAILY 11/23/21 11/24/21 History Allergies Allergy/AdvReac Type Severity Reaction Status Date / Time oxycodone [From OxyContin] AdvReac Severe Nausea and Verified 11/24/21 08:47 Vomiting Vital Signs Vital Signs - 24 hr 11/24/21 01:13 11/24/21 03:10 11/24/21 06:21 Temperature 37.0 C Pulse Rate 69 65 67 Respiratory Rate 20 16 18 Blood Pressure 110/71 103/68 103/64 Pulse Oximetry 98 99 99 Oxygen Delivery Room Air 11/24/21 07:36 11/24/21 11:12 Temperature Pulse Rate 77 Respiratory Rate 18 Blood Pressure 97/67 L Pulse Oximetry 99 Oxygen Delivery Room Air Exam Const: Orientation/consciousness: patient oriented x3 Other: Well-developed, well-nourished female in no acute distress. Neck: Thyroid: thyroid normal Lymphatic: no lymphadenopathy noted (in neck, axilla or inguinal nodes) Resp: Effort & Inspection: normal respiratory effort Auscultation: clear to auscultation bilaterally Cardio: Rate: regular rate Rhythm: regular rhythm Heart sounds: S1 normal heart sound present and S2 normal heart sound present GI: Other: ABD: Soft, tender in suprapubic area. No guarding or rebound tenderness. No hepatosplenomegaly. : General: Yes no CVA tenderness Other: External genitalia: normal female hair distribution, without lesion. Bladder: tender to palpation Vagina: Speculum exam not performed. Cervix: no cervical mo
[2021-11-24] MEDS: MELATONIN 5 MG TABLET PO (21:10)
[2021-11-25] VITALS (8 sets, daily range): BP systolic 80–96; BP diastolic 46–56; PULSE 55–70; RESP 16–20; TEMP 36.6–37.3; O2SAT 99–100
[2021-11-25] MEDS: KETOROLAC 15 MG/ML VIAL (*BKC) IV PUSH ×4 (00:29→17:47)
[2021-11-25] MEDS: SODIUM CHLORIDE 0.9% IV 1,000 ML 100 ML IV CONT ×2 (05:56→17:05)
[2021-11-25 06:53] LABS: Alanine Aminotransferase 7 U/L (6-35); Albumin Level 2.9 g/dL (3.5-5.1); Alkaline Phosphatase 39 U/L (38-126); Anion Gap 3 mmol/L (8-16); Aspartate Amino Transferase 17 U/L (14-36); Bilirubin,Total 0.4 mg/dL (0.2-1.3); Blood Urea Nitrogen 6 mg/dL (7-17); Calcium 7.1 mg/dL (8.4-10.2); Carbon Dioxide 23 mmol/L (22-30); Chloride 112 mmol/L (98-107); Estimated CRCL calculation 121 ml/min; Estimated Glomerular Filt Rate > 60; Glucose 88 mg/dL (65-110); Potassium 3.5 mmol/L (3.4-5.0); Sodium 138 mmol/L (137-145)
--- NOTE | 2021-11-25 06:58 | PM.IMCN ---
Assessment and Plan Assessment and plan (1) Female pelvic congestion syndrome: Code(s): N94.89 - Other specified conditions associated with female genital organs and menstrual cycle Status: Acute Assessment and Plan: OBGYN is primary provider on this case, Hospitalist has been consulted CT of the abdomen and pelvis revealed prominent left adnexal vessels which may be secondary to pelvic congestion syndrome and nonobstructing lower pole left nephrolithiasis. P.r.n. medications administered for pain management P.r.n. Zofran (2) Abnormal urinalysis: Code(s): R82.90 - Unspecified abnormal findings in urine Status: Acute Assessment and Plan: CBC, CMP, UA, reviewed Follow temp curve, cultures, WBC, and VS Consider additional doses of Ceftriaxone 1g IV, patient does not currently have a leukocytosis and she is afebrile. IV Rocephin discontinued started patient on ciprofloxacin x3 days. Patient does not have any growth in her urine culture. (3) Anxiety: Code(s): F41.9 - Anxiety disorder, unspecified Status: Acute Assessment and Plan: Stable (4) Acute abdominal pain: Code(s): R10.9 - Unspecified abdominal pain Status: Acute Assessment and Plan: Patient presented to the emergency department with complaints of abdominal pain for the last several months. CT of the abdomen and pelvis obtained revealed possible pelvic congestion syndrome. OBGYN is primary. Obtain stool cultures, occult stool, H pylori ( Stool cultures remained and collected 11/25/2021) Start Protonix 40 mg daily Prn Zofran P.r.n. pain management HPI Data of Consult Consult date: 11/25/21 Requesting Physician: Rik Lawson MD Primary Care Provider: Fifi RalphMD Consult Narrative Narrative: Mariluz Green is a 41 year old female with acute abdominal pain. She continues have acute abdominal pain. Primary Clinician is on as primary. Patient is on IV fluids, transitioned her IV antibiotics Rocephin to Cipro. Urine culture did not reveal significant growth. Pending blood cultures, no growth to date. Patient no longer complains of nausea and episodes of emesis. she still reports diarrhea. Florastor was added to her medication list. Pending further management by environmental tech. Review of Systems Review of Systems: All systems reviewed & are unremarkable except as noted in HPI and below PMFSH Past Medical History Medical History Anxiety Asthma History of small bowel obstruction Spina bifida Surgical History Surgical History History of arthroscopic knee surgery History of dilation and curettage History of right oophorectomy History of tubal ligation Family History Family History Mother Asthma Diabetes mellitus Bipolar disorder Social History Social History Social History: Surrogate decision maker: cole Etienne. Code status: Full code. Smoking status: Never smoker Alcohol intake: never Substance use: never Substance use type: does not use Additional living arrangements comments: Resides in [place] with her jad. Additional occupation/education comments: Works at [employer]. Gender identity (if verbalized by the patient): Female Spiritual care concerns: No Meds Home Medications and Allergies Home Medications Medication Instructions Recorded Confirmed Type mirtazapine 45 mg tablet 45 mg PO DAILY 09/14/20 11/24/21 History hydrocodone 10 mg-acetaminophen 10 tablet PO DIRECTED 09/06/21 11/24/21 History 325 mg tablet albuterol sulfate 90 mcg/actuation 2 inh inhalation Q6H PRN Shortness 11/23/21 11/24/21 History aerosol inhaler Of Breath Or Wheezing loratadine 10 mg tablet 1 tablet PO DAILY 11/23/21
[2021-11-25 07:50] LABS: Basophils Absolute Auto 0.1 K/mm3 (0.0-0.1); Eosinophils Absolute Auto 0.1 K/mm3 (0-0.3); Eosinophils Percent Auto 2.3 % (0-4.4); Hematocrit 30.2 % (37.0-47.0); Hemoglobin 9.2 g/dL (12.0-15.0); Immature Granulocyte Absolute 0.01 K/mm3 (0.00-0.031); Immature Granulocyte Percent A 0.2 % (0-0.5); Lymphocytes Absolute Auto 1.56 K/mm3 (0.9-3.2); Lymphocytes Percent Auto 32.5 % (18.3-44.2); Mean Corpuscular HGB Conc 30.5 g/dl (32-36); Mean Corpuscular Hemoglobin 24.7 pg (26-34); Mean Corpuscular Volume 81.2 fl (80-100); Mean Platelet Volume 10.8 fl (7.4-10.4); Monocytes Absolute Auto 0.4 K/mm3 (0.1-0.6); Monocytes Percent Auto 8.1 % (2.6-8.5); Neutrophils Absolute Auto 2.7 K/mm3 (1.3-6.7); Neutrophils Percent Auto 55.9 % (45.5-73.1); Platelet Count Result 182 k/mm3 (150-375); Red Blood Count 3.72 M/mm3 (4.2-5.4); Red Cell Distribution Width 16.2 % (11.5-14.5); White Blood Count 4.8 K/mm3 (4.5-10.0)
[2021-11-25] MEDS: LORATADINE 10 MG TABLET PO (09:28)
[2021-11-25] MEDS: PANTOPRAZOLE SODIUM IV 40 MG VIAL IV PUSH (09:28)
[2021-11-25] MEDS: MIRTAZAPINE 15 MG TABLET 45 MG PO (09:28)
[2021-11-25] MEDS: ACETAMINOPHEN 325 MG TABLET 650 MG PO ×3 (09:40→21:19)
--- NOTE | 2021-11-25 10:14 | PCPTNOTE ---
Attempted PT evaluation, Patient refused due to pain. RN aware. Will Follow.
--- NOTE | 2021-11-25 13:21 | PM.GYNPNOP ---
IRRIGATION SPECIALIST - A/P Time Spent With Patient Time: Total time spent is greater than 50% in coordination of care (as documented) at patient's floor/unit and/or counseling patient: Time with patient: less than 15 minutes IRRIGATION SPECIALIST- PN:Jada Post-Op Subjective Date/time seen: 11/25/21 13:21 Pain is better today, but still bothersome. She is receiving Tylenol and Toradol IV. We have not resumed [place]. Urine culture negative. WBC even lower today. Have changed ABX from ceftriaxone to Cipro. She says her nausea is better and she is asking for food. Tolerated a full liquid lunch. No bm today. Stool sample still has not been able to be collected. AVSS ABD soft, less tender in suprapubic region than yesterday. No guard. No rebound. No HSM. EXT nontender. SCD's noted. A: Abdominal pain, nausea, loose stools. Clinically improving. P: If she continues to improve, plan home tomorrow to f/u in office in 1-2 weeks. Hospitalist input greatly appreciated. IRRIGATION SPECIALIST - PN: Obj Data Vital Signs Vital Signs: Vital Signs - 24 hr 11/24/21 15:07 11/24/21 21:43 11/24/21 20:00 Temperature 37.1 C 36.6 C Pulse Rate 52 L 80 80 Respiratory Rate 16 18 18 Blood Pressure 94/58 L 88/60 L Pulse Oximetry 100 96 96 Oxygen Delivery Room Air 11/25/21 05:34 11/25/21 09:40 11/25/21 09:30 Temperature 36.6 C 36.6 C Pulse Rate 55 L Respiratory Rate 16 16 Blood Pressure 96/53 L Pulse Oximetry 100 100 Oxygen Delivery Room Air Intake/Output Intake/Output: Intake & Output 11/22/21 11/23/21 11/24/21 11/25/21 23:59 23:59 23:59 23:59 Intake Total 2300 1320 Output Total 800 1700 Balance 1500 -380 Meds/Results Medications: Active Medications Generic Name Dose Route Start Last Admin Trade Name Freq PRN Reason Stop Dose Admin Acetaminophen 650 mg 11/24/21 08:58 11/25/21 09:40 Acetaminophen 325 Mg Tablet PO 650 mg Q6H PRN Administration Mild Pain (1-3) or Fever Albuterol 2 puff 11/24/21 09:01 Albuterol Sulfate (*Sp) Aerosol 1 Puff INHALATION Q6H PRN Shortness Of Breath Or Wheezing Ciprofloxacin 750 mg 11/25/21 18:00 Ciprofloxacin 250 Mg Tablet PO Q12H DOMENIC Sodium Chloride 1,000 mls @ 100 mls/hr 11/24/21 09:00 11/25/21 05:56 Normal Saline Iv IV CONT 100 mls/hr .Q10H DOMENIC Administration Ketorolac Tromethamine 15 mg 11/24/21 18:00 11/25/21 12:34 Ketorolac 15 Mg/Ml Vial (*Bkc) IV PUSH 15 mg Q6HR DOMENIC Administration Loratadine 10 mg 11/24/21 09:10 11/25/21 09:28 Loratadine 10 Mg Tablet PO 10 mg DAILY DOMENIC Administration Melatonin 5 mg 11/24/21 21:00 11/24/21 21:10 Melatonin 5 Mg Tablet PO 5 mg HS DOMENIC Administration Mirtazapine 45 mg 11/24/21 09:10 11/25/21 09:28 Mirtazapine 15 Mg Tablet PO 45 mg DAILY DOMENIC Administration Ondansetron HCl 4 mg 11/24/21 08:58 Ondansetron Inj 4 Mg/2 Ml Vial IV PUSH Q6H PRN Nausea And Vomiting Pantoprazole Sodium 40 mg 11/24/21 09:10 11/25/21 09:28 Pantoprazole Sodium Iv 40 Mg Vial IV PUSH 40 mg QAM DOMENIC Administration Saccharomyces Boulardii 250 mg 11/25/21 17:00 Saccharomyces Boulardii 250 Mg Capsule PO BID [facility] Radiology Results: ITS Impressions Abdomen/Pelvis CT 11/24/21 08:29 IMPRESSION: Prominent left adnexal vessels which may be secondary to pelvic congestion syndrome Normal appendix Nonobstructing lower pole left nephrolithiasis Labs CBC & Chem 7: 11/25/21 06:18 11/25/21 06:18 Labs: Laboratory Results - last 24 hr 11/25/21 11/25/21 06:18 06:18 WBC 4.8 RBC 3.72 L Hgb 9.2 L Hct 30.2 L MCV 81.2 MCH 24.7 L MCHC 30.5 L RDW 16.2 H Plt Count 182 MPV 10.8 H Immature Gran % (Auto) 0.2 Neut % (Auto) 55.9 Lymph % (Auto) 32.5 [place] % (Auto) 8.1 Eos % (Auto) 2.3 Baso % (Auto) 1.0 Lymph # (Auto) 1.56 Maury # (Auto) 0.4 Eos # (Auto) 0.1 Baso # (Auto) 0.1 Abs Immat
[2021-11-25] MEDS: SACCHAROMYCES BOULARDII 250 MG CAPSULE PO (17:03)
[2021-11-25] MEDS: CIPROFLOXACIN 250 MG TABLET 750 MG PO (17:46)
[2021-11-25] MEDS: MELATONIN 5 MG TABLET PO (21:22)
[2021-11-26] MEDS: KETOROLAC 15 MG/ML VIAL (*BKC) IV PUSH ×2 (00:15→06:20)
[2021-11-26] MEDS: SODIUM CHLORIDE 0.9% IV 1,000 ML 100 ML IV CONT (04:50)
[2021-11-26 06:00] VITALS: BP 98/49; PULSE 61; RESP 18; TEMP 37; O2SAT 100
[2021-11-26] MEDS: CIPROFLOXACIN 250 MG TABLET 750 MG PO (06:21)
[2021-11-26 07:06] LABS: Basophils Absolute Auto 0.1 K/mm3 (0.0-0.1); Basophils Percent Auto 0.9 % (0.2-1.2); Eosinophils Absolute Auto 0.1 K/mm3 (0-0.3); Eosinophils Percent Auto 2.4 % (0-4.4); Hematocrit 29.7 % (37.0-47.0); Hemoglobin 8.9 g/dL (12.0-15.0); Immature Granulocyte Absolute 0.01 K/mm3 (0.00-0.031); Immature Granulocyte Percent A 0.2 % (0-0.5); Lymphocytes Absolute Auto 1.59 K/mm3 (0.9-3.2); Lymphocytes Percent Auto 29.5 % (18.3-44.2); Mean Corpuscular Hemoglobin 24.2 pg (26-34); Mean Corpuscular Volume 80.7 fl (80-100); Mean Platelet Volume 10.7 fl (7.4-10.4); Monocytes Absolute Auto 0.4 K/mm3 (0.1-0.6); Monocytes Percent Auto 7.6 % (2.6-8.5); Neutrophils Absolute Auto 3.2 K/mm3 (1.3-6.7); Neutrophils Percent Auto 59.4 % (45.5-73.1); Platelet Count Result 178 k/mm3 (150-375); Red Blood Count 3.68 M/mm3 (4.2-5.4); Red Cell Distribution Width 16.2 % (11.5-14.5); White Blood Count 5.4 K/mm3 (4.5-10.0)
--- NOTE | 2021-11-26 07:15 | PM.IMCN ---
Assessment and Plan Assessment and plan (1) Female pelvic congestion syndrome: Code(s): N94.89 - Other specified conditions associated with female genital organs and menstrual cycle Status: Acute Assessment and Plan: OBGYN is primary provider on this case, Hospitalist has been consulted CT of the abdomen and pelvis revealed prominent left adnexal vessels which may be secondary to pelvic congestion syndrome and nonobstructing lower pole left nephrolithiasis. P.r.n. medications administered for pain management P.r.n. Zofran (2) Abnormal urinalysis: Code(s): R82.90 - Unspecified abnormal findings in urine Status: Acute Assessment and Plan: CBC, CMP, UA, reviewed Follow temp curve, cultures, WBC, and VS Consider additional doses of Ceftriaxone 1g IV, patient does not currently have a leukocytosis and she is afebrile. IV Rocephin discontinued started patient on ciprofloxacin x3 days. Patient does not have any growth in her urine culture. (3) Anxiety: Code(s): F41.9 - Anxiety disorder, unspecified Status: Acute Assessment and Plan: Stable (4) Acute abdominal pain: Code(s): R10.9 - Unspecified abdominal pain Status: Acute Assessment and Plan: Patient presented to the emergency department with complaints of abdominal pain for the last several months. CT of the abdomen and pelvis obtained revealed possible pelvic congestion syndrome. OBGYN is primary. Obtain stool cultures, occult stool, H pylori ( Stool cultures remained and collected 11/25/2021) Start Protonix 40 mg daily Prn Zofran P.r.n. pain management HPI Data of Consult Consult date: 11/26/21 Requesting Physician: Rik Lawson MD Primary Care Provider: Fifi RalphMD Consult Narrative Narrative: Mariluz Green is a 41 year old female a be discharged today. Patient is stable and will follow-up with Gyne. Will sign off. Review of Systems Review of Systems: All systems reviewed & are unremarkable except as noted in HPI and below PMFSH Past Medical History Medical History Anxiety Asthma History of small bowel obstruction Spina bifida Surgical History Surgical History History of arthroscopic knee surgery History of dilation and curettage History of right oophorectomy History of tubal ligation Family History Family History Mother Asthma Diabetes mellitus Bipolar disorder Social History Social History Social History: Surrogate decision maker: dana Etienne?. Code status: Full code. Smoking status: Never smoker Alcohol intake: never Substance use: never Substance use type: does not use Additional living arrangements comments: Resides in [place] with her jad. Additional occupation/education comments: Works at [employer]. Gender identity (if verbalized by the patient): Female Spiritual care concerns: No Meds Home Medications and Allergies Home Medications Medication Instructions Recorded Confirmed Type mirtazapine 45 mg tablet 45 mg PO DAILY 09/14/20 11/24/21 History hydrocodone 10 mg-acetaminophen 10 tablet PO DIRECTED 09/06/21 11/24/21 History 325 mg tablet albuterol sulfate 90 mcg/actuation 2 inh inhalation Q6H PRN Shortness 11/23/21 11/24/21 History aerosol inhaler Of Breath Or Wheezing loratadine 10 mg tablet 1 tablet PO DAILY 11/23/21 11/24/21 History ciprofloxacin HCl 500 mg tablet 500 mg PO Q12H #5 tabs 11/26/21 Rx (Cipro) Allergies Allergy/AdvReac Type Severity Reaction Status Date / Time oxycodone [From OxyContin] AdvReac Severe Nausea and Verified 11/24/21 08:47 Vomiting Vital Signs Vital Signs - 24 hr 11/25/21 09:40 11/25/21 09:30 11/25
[2021-11-26 07:19] LABS: Alanine Aminotransferase 7 U/L (6-35); Albumin Level 2.8 g/dL (3.5-5.1); Alkaline Phosphatase 42 U/L (38-126); Anion Gap 2 mmol/L (8-16); Aspartate Amino Transferase 18 U/L (14-36); Bilirubin,Total < 0.1 mg/dL (0.2-1.3); Blood Urea Nitrogen 5 mg/dL (7-17); Carbon Dioxide 23 mmol/L (22-30); Chloride 113 mmol/L (98-107); Estimated CRCL calculation 103 ml/min; Estimated Glomerular Filt Rate > 60; Glucose 100 mg/dL (65-110); Potassium 3.6 mmol/L (3.4-5.0); Sodium 138 mmol/L (137-145)
[2021-11-26 08:00] VITALS: PULSE 61; RESP 18; O2SAT 100
--- NOTE | 2021-11-26 08:17 | PCPTNOTE ---
Attempted PT evaluation this date however pt stated No thank you and requested that therapist check back later. Will attempt at a later date/time.
--- NOTE | 2021-11-26 08:25 | PM.GYNPNOP ---
MACHINE WELDER - A/P Assessment and plan (1) Acute abdominal pain: Code(s): R10.9 - Unspecified abdominal pain Status: Acute Assessment and Plan: A: Abdominal pain, nausea, in the setting of pelvic vascular congestion. Her pain and nausea have improved and she'd like to go home. P: Home to finish a course of Cipro. She plans to resume her home pain med regimen. I asked her to follow up in the office in the next week. (2) Female pelvic congestion syndrome: Code(s): N94.89 - Other specified conditions associated with female genital organs and menstrual cycle Status: Acute Time Spent With Patient Time with patient: less than 15 minutes MACHINE WELDER- PN:Subj Post-Op Subjective Date/time seen: 11/26/21 08:25 She says pain has improved today. She is hungry. Review of Systems Review of Systems: All systems reviewed & are unremarkable except as noted in HPI and below Exam GI: Other: ABD soft, nontender, no guarding, no rebound, no hepatosplenomegaly Extrem: Other: Nontender, no edema MACHINE WELDER - PN: Obj Data Vital Signs Vital Signs: Vital Signs - 24 hr 11/25/21 09:40 11/25/21 09:30 11/25/21 16:00 Temperature 36.6 C 37.3 C Pulse Rate 61 Respiratory Rate 16 20 Blood Pressure 80/51 L Pulse Oximetry 100 99 Oxygen Delivery Room Air 11/25/21 14:29 11/25/21 16:15 11/25/21 20:00 Temperature Pulse Rate 64 64 Respiratory Rate 20 20 Blood Pressure 88/56 L Pulse Oximetry 100 99 99 Oxygen Delivery Room Air Room Air 11/25/21 22:00 11/26/21 06:00 Temperature 36.6 C 37.0 C Pulse Rate 70 61 Respiratory Rate 17 18 Blood Pressure 89/46 L 98/49 L Pulse Oximetry 99 100 Oxygen Delivery Intake/Output Intake/Output: Intake & Output 11/23/21 11/24/21 11/25/21 11/26/21 23:59 23:59 23:59 23:59 Intake Total 2300 3160 1250 Output Total 800 2100 Balance 1500 1060 1250 Meds/Results Medications: Active Medications Generic Name Dose Route Start Last Admin Trade Name Freq PRN Reason Stop Dose Admin Acetaminophen 650 mg 11/24/21 08:58 11/25/21 21:19 Acetaminophen 325 Mg Tablet PO 650 mg Q6H PRN Administration Mild Pain (1-3) or Fever Albuterol 2 puff 11/24/21 09:01 Albuterol Sulfate (*Sp) Aerosol 1 Puff INHALATION Q6H PRN Shortness Of Breath Or Wheezing Ciprofloxacin 750 mg 11/25/21 18:00 11/26/21 06:21 Ciprofloxacin 250 Mg Tablet PO 750 mg Q12H DOMENIC Administration Sodium Chloride 1,000 mls @ 100 mls/hr 11/24/21 09:00 11/26/21 04:50 Normal Saline Iv IV CONT 100 mls/hr .Q10H DOMENIC Administration Ketorolac Tromethamine 15 mg 11/24/21 18:00 11/26/21 06:20 Ketorolac 15 Mg/Ml Vial (*Bkc) IV PUSH 15 mg Q6HR DOMENIC Administration Loratadine 10 mg 11/24/21 09:10 11/25/21 09:28 Loratadine 10 Mg Tablet PO 10 mg DAILY DOMENIC Administration Melatonin 5 mg 11/24/21 21:00 11/25/21 21:22 Melatonin 5 Mg Tablet PO 5 mg HS DOMENIC Administration Mirtazapine 45 mg 11/24/21 09:10 11/25/21 09:28 Mirtazapine 15 Mg Tablet PO 45 mg DAILY DOMENIC Administration Ondansetron HCl 4 mg 11/24/21 08:58 Ondansetron Inj 4 Mg/2 Ml Vial IV PUSH Q6H PRN Nausea And Vomiting Pantoprazole Sodium 40 mg 11/24/21 09:10 11/25/21 09:28 Pantoprazole Sodium Iv 40 Mg Vial IV PUSH 40 mg QAM DOMENIC Administration Saccharomyces Boulardii 250 mg 11/25/21 17:00 11/25/21 17:03 Saccharomyces Boulardii 250 Mg Capsule PO 250 mg BID DOMENIC Administration Radiology Results: ITS Impressions Abdomen/Pelvis CT 11/24/21 08:29 IMPRESSION: Prominent left adnexal vessels which may be secondary to pelvic congestion syndrome Normal appendix Nonobstructing lower pole left nephrolithiasis Labs CBC & Chem 7: 11/26/21 06:37 11/26/21 06:37 Labs: Laboratory Results - last 24 hr 11/26/21 11/26/21 06:37 06:37 WBC 5.4 RBC 3.68 L Hgb 8.9 L Hct 29.7 L MCV
[2021-11-26] MEDS: SACCHAROMYCES BOULARDII 250 MG CAPSULE PO (09:13)
[2021-11-26] MEDS: PANTOPRAZOLE SODIUM IV 40 MG VIAL IV PUSH (09:13)
[2021-11-26] MEDS: MIRTAZAPINE 15 MG TABLET 45 MG PO (09:13)
[2021-11-26] MEDS: LORATADINE 10 MG TABLET PO (09:14)
--- NOTE | 2021-11-26 10:49 | PCPTNOTE ---
attempted PT eval 1050; pt refused, stated she did not need therapy, has discharge orders and going home;
--- NOTE | 2021-12-26 15:02 | PM.DS ---
DS: Admitting Diagnosis Discharge Date 11/26/21 Admitting Diagnosis Abdominal pain DS: Discharge Diagnosis Discharge Diagnosis (1) Female pelvic congestion syndrome: Code(s): N94.89 - Other specified conditions associated with female genital organs and menstrual cycle Status: Acute (2) Acute abdominal pain: Code(s): R10.9 - Unspecified abdominal pain Status: Acute (3) Cystitis: Code(s): N30.90 - Cystitis, unspecified without hematuria Status: Acute (4) Kidney stone: Code(s): N20.0 - Calculus of kidney Status: Acute DS: Summary Hospital Course Hospital Course: Admitted for abdominal pain. She takes high dose narcotics daily for chronic pain. Found to have UTI, kidney stones, and pelvic venous congestion on imaging. Received antibiotic therapy, and her condition improved. Was able to go home to f/u as an outpatient. Time Spent with Patient Time attestation: Total time spent providing and/or coordinating discharge services: Discharge Plan Discharge Attending physician on discharge: Rik Lawson Consulting providers: Patt Mancilla V. ; Brenna Lopez ; Rik Canas Discharging Clinician: Rik Lawson Patient Disposition: Home, Self-Care Activity: unlimited Diet: as tolerated Discharge Instructions: Call or return if temperature above 100.4? F, increased abdominal pain, increased vomiting or any new problems. Patient Instructions: Antibiotic Form Stand Alone Forms: General Discharge Information Follow-up/Referrals: Bob Do MD [Physician] - 1 Week Discharge Medications: New ciprofloxacin HCl [Cipro] 500 mg tablet 500 mg PO Q12H Qty: 5 0RF Continued albuterol sulfate 90 mcg/actuation HFA aerosol inhaler 2 inh INHALATION Q6H PRN (Reason: Shortness Of Breath Or Wheezing) loratadine 10 mg tablet 1 tablet PO DAILY hydrocodone-acetaminophen 10-325 mg tablet 10 tablet PO DIRECTED mirtazapine 45 mg Tablet 45 mg PO DAILY Date of admission: 11/24/21 07:10 Primary Care Provider: Ramo,Fifi Cameron Admitting Provider: Rik Lawson Attending physician on admission: Rik Lawson Condition: Stable
== END 2021-11-26 13:55 | disposition home or self-care (01) ==
LOC: ANHED 06:58 → ANH3MEDSUR 07:15
PROVIDERS: Nurse Practitioner Family; Admitting Provider Obstetrics & Gynecology; Emergency Provider Emergency Medicine; PCP Family Medicine; Visit Provider Obstetrics & Gynecology
DX: R10.9 Unspecified abdominal pain (principal); R82.90 Unspecified abnormal findings in urine; N94.89 Other specified conditions associated with female genital organs and menstrual cycle; J45.909 Unspecified asthma, uncomplicated; F41.9 Anxiety disorder, unspecified; Z79.891 Long term (current) use of opiate analgesic; Q05.9 Spina bifida, unspecified; Z20.822 Contact with and (suspected) exposure to COVID-19
CPT/HCPCS: 36415; 74177; 80053; 80307; 81001; 81025; 83690; 83735; 84702; 85025; 86140; 87040; 87086; 96361; 96365; 96366; 96374; 96375; 96376; 97165; 99285; A9270; C9113; C9803; G0378; G0379; J0131; J0696; J1885; J7030; J7120; Q9967; U0003; U0005

== ENCOUNTER 2022-01-23 13:51 | Emergency (ER) | payer OTHER, SELFPAY ==
--- NOTE | ~2022-01-23 | XR_ITS ---
EXAMINATION: XR chest 2V DATE: 01/23/2022 14:20 INDICATION: Shortness of breath and cough. TECHNIQUE: Frontal and lateral views of the chest were obtained. COMPARISON: Chest 2 views 04/26/2021 FINDINGS: There is mild scarring at the lung apices. No pleural effusion or pneumothorax. The heart s ize is normal. IMPRESSION: 1. Stable mild scarring at the lung apices. Reviewed, dictated and finalized at location A.
--- NOTE | 2022-01-23 13:52 | ECG_ITS ---
Measurements Intervals [place] Rate: 86 P: 62 WA: 133 QRS: 70 QRSD: 86 T: 7 QT: 374 QTc: 448 Interpretive Statements SINUS RHYTHM POSSIBLE LEFT ATRIAL ENLARGEMENT [-0.1mV P-WAVE IN V1/V2] POSSIBLE RIGHT VENTRICULAR CONDUCTION DELAY [RSR (QR) IN V1/V2] NONSPECIFIC T-WAVE ABNORMALITY COMPARED TO ECG 04/26/2021 16:26:03 T-WAVE ABNORMALITY NOW PRESENT Electronically Signed On 01-23-2022 20:00:42 CDT by Polina Anderson M.D.
[2022-01-23 14:06] VITALS: BP 155/84; PULSE 95; RESP 18; TEMP 36.6; O2SAT 100
[2022-01-23 14:17] LABS: Basophils Percent Auto 0.3 % (0.2-1.2); Eosinophils Percent Auto 0.3 % (0-4.4); Hematocrit 33.5 % (37.0-47.0); Hemoglobin 10.2 g/dL (12.0-15.0); Immature Granulocyte Absolute 0.01 K/mm3 (0.00-0.031); Immature Granulocyte Percent A 0.3 % (0-0.5); Lymphocytes Absolute Auto 1.29 K/mm3 (0.9-3.2); Mean Corpuscular HGB Conc 30.4 g/dl (32-36); Mean Corpuscular Hemoglobin 24.1 pg (26-34); Mean Platelet Volume 10.4 fl (7.4-10.4); Monocytes Absolute Auto 0.4 K/mm3 (0.1-0.6); Neutrophils Percent Auto 54.1 % (45.5-73.1); Platelet Count Result 177 k/mm3 (150-375); Red Blood Count 4.24 M/mm3 (4.2-5.4); Red Cell Distribution Width 15.8 % (11.5-14.5); White Blood Count 3.7 K/mm3 (4.5-10.0)
[2022-01-23 14:29] LABS: Alanine Aminotransferase 11 U/L (6-35); Albumin Level 4.3 g/dL (3.5-5.1); Alkaline Phosphatase 51 U/L (38-126); Anion Gap 10 mmol/L (8-16); Aspartate Amino Transferase 31 U/L (14-36); Bilirubin,Total 0.2 mg/dL (0.2-1.3); Blood Urea Nitrogen 7 mg/dL (7-17); Calcium 8.4 mg/dL (8.4-10.2); Carbon Dioxide 25 mmol/L (22-30); Chloride 103 mmol/L (98-107); Estimated CRCL calculation 109 ml/min; Estimated Glomerular Filt Rate > 60; Glucose 89 mg/dL (65-110); Sodium 138 mmol/L (137-145)
[2022-01-23 14:59] LABS: SARS-CoV-2 RNA PCR Positive
[2022-01-23 15:49] VITALS: BP 105/70; PULSE 74; RESP 18; O2SAT 100
--- NOTE | 2022-01-23 15:59 | ED.SOB ---
HPI - SOB/Dyspnea General Chief Complaint: Shortness of Breath/Dyspnea Stated Complaint: sob Time Seen by Provider: 01/23/22 15:58 Source: patient Mode of arrival: ambulatory Limitations: no limitations History of Present Illness HPI Narrative: Patient is a 41-year-old female with a history of asthma presenting to the emergency department for evaluation of cough and shortness of breath. Patient states that she traveled to this area from [place] 6 days ago in which she began to feel unwell on Friday morning, 5 days ago. Patient reports productive cough, sore throat, runny nose and congestion. She reports subjective fever and chills. She reports myalgias. She denies frontal chest pain, abdominal pain, dysuria or hematuria. She denies rash, lesions, wounds. Patient denies unilateral leg swelling, calf pain or hemoptysis. Patient has no history of COVID vaccination. She has no known history of COVID infection. She states many of her family members are sick with similar symptoms. Related Data Home Medications Medication Instructions Recorded Confirmed mirtazapine 45 mg tablet 45 mg PO DAILY 09/14/20 11/24/21 hydrocodone 10 mg-acetaminophen 10 tablet PO DIRECTED 09/06/21 11/24/21 325 mg tablet albuterol sulfate 90 mcg/actuation 2 inh inhalation Q6H PRN Shortness 11/23/21 11/24/21 aerosol inhaler Of Breath Or Wheezing loratadine 10 mg tablet 1 tablet PO DAILY 11/23/21 11/24/21 Allergies Allergy/AdvReac Type Severity Reaction Status Date / Time oxycodone [From OxyContin] AdvReac Severe Nausea and Verified 11/24/21 08:47 Vomiting Review of Systems Review of Systems: CONSTITUTIONAL: Denies fever, chills, or sweats. EYES: Denies visual changes, redness, or discharge. ENT: Reports rhinorrhea, congestion, denies sore throat CARDIOVASCULAR: Denies chest pain, palpitations, or edema. RESPIRATORY: Reports productive cough and shortness of breath GASTROINTESTINAL: Denies abdominal pain, nausea, vomiting, or diarrhea. GENITOURINARY: Denies dysuria or hematuria. SKIN: Denies rash or itching. MUSCULOSKELETAL: Denies back pain, joint pain, reports myalgias NEUROLOGIC: Denies headache, numbness, or weakness. [facility] Past Medical History Medical History Acute abdominal pain Anxiety Asthma History of small bowel obstruction Spina bifida Surgical History Surgical History History of arthroscopic knee surgery History of dilation and curettage History of right oophorectomy History of tubal ligation Family History Family History Mother Asthma Diabetes mellitus Bipolar disorder Social History Social History Social History: Surrogate decision maker: dana Etienne?. Code status: Full code. Smoking status: Never smoker Alcohol intake: never Substance use: never Substance use type: does not use Additional living arrangements comments: Resides in [place] with her fiance. Additional occupation/education comments: Works at [employer]. Gender identity (if verbalized by the patient): Female Spiritual care concerns: No Exam Narrative: GENERAL: Awake, alert, conversant HEAD: Normocephalic, atraumatic. EYES: PERRLA and EOMI. ENT: Nares clear, no rhinorrhea or epistaxis. Mucous membranes moist. NECK: Supple. CHEST: No respiratory distress, breathing even and non labored, lungs are clear to auscultation bilaterally, no wheezing, rhonchi, rales HEART: Regular rate, sinus rhythm ABDOMEN:Non distended, non tender EXTREMITIES: Normal range of motion. No edema. SKIN: Warm, dry, no rash. NEURO:No focal deficits. Alert and oriented x3 Course Vital Signs Vital signs: Vital Signs Temperature 36.6 C 01/23/22 14:06 Pulse Rate 95 01/23/22 14:06 Respirator
[2022-01-23] MEDS: ALBUTEROL SULFATE NEB 2.5 MG/3 ML INH 5 MG INHALATION (16:47)
[2022-01-23 16:48] VITALS: PULSE 71; RESP 22; O2SAT 100
[2022-01-23] MEDS: IPRATROPIUM BR 0.02% INH SOLN 0.5 MG/2.5 ML VIAL INHALATION (16:48)
[2022-01-23 17:52] LABS: D Dimer 0.46 ug/mL (<0.48)
[2022-01-23 18:21] VITALS: BP 137/87; PULSE 82; RESP 16; O2SAT 98
== END 2022-01-23 18:22 | disposition home or self-care (01) ==
PROVIDERS: Emergency Provider Emergency Medicine; PCP Family Medicine
DX: U07.1 COVID-19 (principal); R06.00 Dyspnea, unspecified; Z28.310 Unvaccinated for COVID-19; J45.909 Unspecified asthma, uncomplicated; Q05.9 Spina bifida, unspecified; Z90.721 Acquired absence of ovaries, unilateral
CPT/HCPCS: 36415; 71046; 80053; 85025; 85380; 93005; 94640; 99284; C9803; U0003; U0005

== ENCOUNTER 2024-05-12 21:22 | Emergency (ER) | payer OTHER, SELFPAY ==
--- NOTE | ~2024-05-12 | XR_ITS ---
Clinical Indication: Lightheadedness PA and lateral views of the chest: Comparison: 01/23/2022 Findings: The lungs are clear, without evidence of focal consolidation or pleural effusion. Cardiome diastinal silhouette is within normal limits. Bones and soft tissues are unremarkable. Impression: Normal chest. Reviewed, dictated and finalized at location . S [employer] Impression: Normal chest.
[2024-05-12 21:23] VITALS: BP 136/96; PULSE 83; RESP 16; TEMP 36.4; O2SAT 100
--- NOTE | 2024-05-12 23:12 | ED_ITS ---
HPI - Female Genitourinary General Chief complaint: Vaginal Bleeding Stated complaint: Bleeding clots, bleeding a month straight Time Seen by Provider: 05/12/24 22:35 Source: patient Mode of arrival: ambulatory Limitations: no limitations History of Present Illness HPI Narrative: This is a 43 year old female that presents to the ER for abnormal uterine bleeding. Ongoing over the last several months. Reports she had a positive test a month ago. She also had a negative test. She has not seen a doctor yet for this complaint. Her bleeding worsened which prompted her to be seen. Reports feeling lightheaded currently. Related Data Home Medications ?Medication ?Instructions ?Recorded ?Confirmed ?Last Taken ?Type mirtazapine 45 mg tablet 45 mg PO DAILY 09/14/20 11/24/21 Unknown History hydrocodone 10 mg-acetaminophen 10 tablet PO DIRECTED 09/06/21 11/24/21 Unknown History 325 mg tablet albuterol sulfate 90 mcg/actuation 2 inh inhalation Q6H PRN Shortness 11/23/21 11/24/21 Unknown History aerosol inhaler Of Breath Or Wheezing loratadine 10 mg tablet 1 tablet PO DAILY 11/23/21 11/24/21 Unknown History Allergies Allergy/AdvReac Type Severity Reaction Status Date / Time oxycodone (From OxyContin) AdvReac Severe Nausea and Verified 11/24/21 08:47 Vomiting Review of Systems 2 Review of Systems: CONSTITUTIONAL: Denies fever GASTROINTESTINAL: Reports pelvic cramping All systems reviewed & are unremarkable except as noted in HPI and below PMFSH Past Medical History Medical History Acute abdominal pain Anxiety Asthma History of small bowel obstruction Spina bifida Surgical History Surgical History History of arthroscopic knee surgery History of dilation and curettage History of right oophorectomy History of tubal ligation Family History Family History Mother Asthma Diabetes mellitus Bipolar disorder Social History Social History Social History: Surrogate decision maker: dana Etienne?. Code status: Full code. Smoking status: Never smoker Alcohol intake: never Substance use: never Substance use type: does not use Living arrangements: with family Additional living arrangements comments: Resides in [place] with her fiance. Occupation/Education: occupation Additional occupation/education comments: Works at [employer]. Gender identity (if verbalized by the patient): Female Spiritual care concerns: No Exam 2 Narrative: GENERAL: Well-appearing, well-nourished, and in no acute distress. HEAD: Normocephalic, atraumatic. EYES: EOMI. CHEST: Clear to auscultation. No respiratory distress. No wheezes rales or rhonchi HEART: Regular rate and rhythm. No murmur heard. Normal peripheral pulses. ABDOMEN: Soft, nontender, nondistended, normal active bowel sounds. EXTREMITIES: Normal range of motion. No edema. SKIN: Warm, dry, no rash. NEURO: No focal deficits. Alert and oriented x3. PSYCH: Normal mood and affect PELVIC: Normal external genitalia. Moderate sized blood clot in the vaginal vault. Bright red blood oozing from the cervix Course Course Emergency Course: Patient updated on her workup and agrees with plan of care Consultations Consultation #1: Spoke with Dr. Roy about patient and workup. Will start patient on norethindrone and patient will follow-up in clinic Date: 05/13/24 Vital Signs Vital signs: Vital Signs Temperature 97.5 F L 05/12/24 21:23 Pulse Rate 83 05/12/24 21:23 Respiratory Rate 16 05/12/24 21:23 Blood Pressure 136/96 H 05/12/24 21:23 Pulse Oximetry 100 05/12/24 21:23 Oxygen Delivery Room Air 05/12/24 21:23 Temperature 97.5 F L 05/12/24 21:23 Pulse Rate 65 05/13/24 02:05 Respiratory Rate 17 05/13/24 02:05 Blood Pressure 117/91 H 05/13/24 00:36 Pulse Oximetry 100 05/13/24 02:05 Oxygen Delivery Room Air 05/12/24 21:23 MDM - Female Genitourinary MDM Narrative Medical decision making narrative: Patient presents to the emergency department for abnormal uterine bleeding. She is afebrile and nontoxic appearing. Heart rate is normal. Blood pressure stable. Hemoglobin is 9.1, which appears to be about around her baseline. Metabolic panel without concerning findings. Patient reporting associated lightheadedness. Chest x-ray and EKG without concerning findings. Quantitative beta hCG is negative. Moderate size blood clot noted on exam. Able to clear way bleeding and see the cervix, slow oozing of blood from the cervix. Spoke with Dr. Roy about patient and workup. Will start patient on norethindrone and patient will follow-up in clinic. She was given warnings to return to the ER Differential Diagnosis Differential diagnosis: Likely dysmenorrhea and other (Abnormal uterine bleeding, threatened miscarriage, miscarriage) Lab Data Attestation: I reviewed the patient's lab results. 05/12/24 23:25 05/12/24 23:25 Labs: Lab Results 05/12/24 05/12/24 05/13/24 Range/Units 23:25 23:31 01:06 WBC 7.3 (4.5-10.0) K/mm3 RBC 3.68 L (4.2-5.4) M/mm3 Hgb 9.1 L (12.0-15.0) g/dL Hct 29.4 L (37.0-47.0) % MCV 79.9 L (80-100) fl MCH 24.7 L (26-34) pg MCHC 31.0 L (32-36) g/dl RDW 15.7 H (11.5-14.5) % Plt Count 252 (150-375) k/mm3 MPV 10.0 (7.4-10.4) fl Immature Gran % (Auto) 0.4 (0-0.5) % Neut % (Auto) 61.6 (45.5-73.1) % Lymph % (Auto) 28.8 (18.3-44.2) % [place] % (Auto) 7.5 (2.6-8.5) % Eos % (Auto) 1.0 (0-4.4) % Baso % (Auto) 0.7 (0.2-1.2) % Lymph # (Auto) 2.10 (0.9-3.2) K/mm3 [place] # (Auto) 0.6 (0.1-0.6) K/mm3 Eos # (Auto) 0.1 (0-0.3) K/mm3 Baso # (Auto) 0.1 (0.0-0.1) K/mm3 Abs Immat Gran (auto) 0.03 (0.00-0.031) K/mm3 Absolute Neuts (auto) 4.5 (1.3-6.7) K/mm3 Absolute Nucleated RBC 0.000 (0.0-0.012) K/mm3 Nucleated RBC % 0.0 (0.0-0.2) % PT 13.0 (11.1-14.7) Seconds INR 1.0 APTT 25.5 (22.3-36.8) Seconds Sodium 140 (137-145) mmol/L Potassium 3.7 (3.4-5.0) mmol/L Chloride 109 H (98-107) mmol/L Carbon Dioxide 26 (22-30) mmol/L Anion Gap 5 (4-12) mmol/L BUN 10 (7-17) mg/dL Creatinine 0.60 L (0.7-1.0) mg/dL Estim Creat Clear Calc 102 ml/min Estimated GFR > 60 (59 - ) Glucose 85 (65-110) mg/dL Calcium 8.6 (8.4-10.2) mg/dL Total Bilirubin 0.2 (0.2-1.3) mg/dL AST 36 (14-36) U/L ALT 16 (6-35) U/L Alkaline Phosphatase 56 (38-126) U/L Troponin I < 0.012 (0.000-0.034) ng/mL Total Protein 7.0 (6.3-8.2) g/dL Albumin 4.2 (3.5-5.1) g/dL Beta HCG, Quant < 2.39 mIU/ML Blood Type A Positive Antibody Screen Negative Imaging Data My impression: Chest x-ray: No acute cardiopulmonary abnormality ECG Data EKG #1: ECG completion date: 05/13/24 EKG Interpretation: normal rate, sinus rhythm, no ST changes and normal QT Critical Care Time Critical Care Time Critical Care Time: No Discharge Plan Discharge Clinical Impression: Abnormal uterine bleeding (AUB) Patient Disposition: Home, Self-Care Condition: Stable Instructions: Abnormal (Dysfunctional) Uterine Bleeding (ED) Additional Instructions: Return to the ER if you experience fever, abdominal pain with nausea and vomiting, you are unable to keep down liquids or solids, you are soaking through a pad/hour, you pass out, or any other symptoms that are concerning to you Remain well hydrated. Over the counter pain medication as needed. Take Norethindrone as prescribed Follow up with gynecology. Call in the morning to make an appointment Patient Language: Luxembourgish Prescriptions: New norethindrone (contraceptive) [Renée] 0.35 mg tablet 0.35 mg PO DAILY 7 Days Qty: 7 0RF Rx Instructions: start day 1 of menstrual cycle No Action albuterol sulfate 90 mcg/actuation HFA aerosol inhaler 2 inh INHALATION Q6H PRN (Reason: Shortness Of Breath Or Wheezing) loratadine 10 mg tablet 1 tablet PO DAILY hydrocodone-acetaminophen 10-325 mg tablet 10 tablet PO DIRECTED mirtazapine 45 mg Tablet 45 mg PO DAILY prednisone 20 mg tablet 60 mg PO DAILY 5 Days Qty: 15 0RF ibuprofen 400 mg tablet 400 mg PO TID PRN (Reason: fever or pain) 10 Days Qty: 30 0RF albuterol sulfate [Ventolin HFA] 90 mcg/actuation HFA aerosol inhaler 1 inhalation INHALATION QID 10 Days Qty: 6.7 0RF acetaminophen 500 mg capsule 500 mg PO Q6H PRN (Reason: fever or pain) Qty: 30 0RF ciprofloxacin HCl [Cipro] 500 mg tablet 500 mg PO Q12H Qty: 5 0RF Follow-up/Referrals: Ramo,Fifi Cameron MD [Primary Care Provider] - Kody Roy MD [Physician] - Stand Alone Forms: Work/School Release IP
[2024-05-12 23:34] LABS: Basophils Absolute Auto 0.1 K/mm3 (0.0-0.1); Basophils Percent Auto 0.7 % (0.2-1.2); Eosinophils Absolute Auto 0.1 K/mm3 (0-0.3); Hematocrit 29.4 % (37.0-47.0); Hemoglobin 9.1 g/dL (12.0-15.0); Immature Granulocyte Absolute 0.03 K/mm3 (0.00-0.031); Immature Granulocyte Percent A 0.4 % (0-0.5); Lymphocytes Percent Auto 28.8 % (18.3-44.2); Mean Corpuscular Hemoglobin 24.7 pg (26-34); Mean Corpuscular Volume 79.9 fl (80-100); Monocytes Absolute Auto 0.6 K/mm3 (0.1-0.6); Monocytes Percent Auto 7.5 % (2.6-8.5); Neutrophils Absolute Auto 4.5 K/mm3 (1.3-6.7); Neutrophils Percent Auto 61.6 % (45.5-73.1); Platelet Count Result 252 k/mm3 (150-375); Red Blood Count 3.68 M/mm3 (4.2-5.4); Red Cell Distribution Width 15.7 % (11.5-14.5); White Blood Count 7.3 K/mm3 (4.5-10.0)
[2024-05-12 23:44] LABS: Alanine Aminotransferase 16 U/L (6-35); Albumin Level 4.2 g/dL (3.5-5.1); Alkaline Phosphatase 56 U/L (38-126); Anion Gap 5 mmol/L (4-12); Aspartate Amino Transferase 36 U/L (14-36); Bilirubin,Total 0.2 mg/dL (0.2-1.3); Blood Urea Nitrogen 10 mg/dL (7-17); Calcium 8.6 mg/dL (8.4-10.2); Carbon Dioxide 26 mmol/L (22-30); Chloride 109 mmol/L (98-107); Estimated CRCL calculation 102 ml/min; Estimated Glomerular Filt Rate > 60; Glucose 85 mg/dL (65-110); Potassium 3.7 mmol/L (3.4-5.0); Sodium 140 mmol/L (137-145)
[2024-05-12 23:46] LABS: Partial Thromboplastin Time 25.5 Seconds (22.3-36.8)
[2024-05-13 00:01] LABS: Beta HCG Quantitative < 2.39 mIU/ML
[2024-05-13] MEDS: SODIUM CHLORIDE 0.9% IV 1,000 ML 999 ML IV CONT (00:19)
[2024-05-13 00:34] VITALS: BP 122/77; PULSE 79
[2024-05-13 00:35] VITALS: BP 121/88; PULSE 83
[2024-05-13 00:36] VITALS: BP 117/91; PULSE 100
--- NOTE | 2024-05-13 00:45 | ECG_ITS ---
Test Date: 2024-05-13 01:35:38 Measurements Intervals [place] Rate: 73 P: 21 DE: 120 QRS: 52 QRSD: 89 T: 21 QT: 387 QTc: 429 Interpretive Statements SINUS RHYTHM No previous ECG available for comparison Electronically Signed On 05-13-2024 15:57:44 TOP TILE DECORATOR by Edmundo Pope M.D.
[2024-05-13] MEDS: ACETAMINOPHEN 500 MG TABLET 1000 MG PO (01:04)
[2024-05-13 01:32] LABS: Troponin I < 0.012 ng/mL (0.000-0.034)
[2024-05-13 02:05] VITALS: PULSE 65; RESP 17; O2SAT 100
[2024-05-13 02:34] VITALS: BP 132/64; PULSE 66; RESP 15; O2SAT 99
[2024-05-13 02:35] VITALS: BP 132/64; PULSE 66; RESP 15; O2SAT 99
== END 2024-05-13 02:36 | disposition home or self-care (01) ==
PROVIDERS: Emergency Provider Physician Assistant; PCP Family Medicine
DX: N93.9 Abnormal uterine and vaginal bleeding, unspecified (principal); J45.909 Unspecified asthma, uncomplicated; Q05.9 Spina bifida, unspecified; Z90.721 Acquired absence of ovaries, unilateral
CPT/HCPCS: 36415; 71046; 80053; 84484; 84702; 85025; 85610; 85730; 86850; 86900; 86901; 93005; 96360; 99284; A9270; J7030

== ENCOUNTER 2025-03-21 12:20 | Emergency (ER) | payer BC, SELFPAY ==
--- OUTSIDE RECORDS SUMMARY | 2025-02-07 19:00 | XMS_ITS | Continuity of Care Document ---
Author Organization [facility] Address [address] [place] [id number] Phone Care Team Providers Care Aerial Survey Technician Name Role Phone Germain ATKINSON, FACC, Josh Unavailable Unavailab le Procedures Procedure Date ELECTROCARDIOGRAM REPORT ELECTROCARDIOGRAM REPORT ELECTROCARDIOGRAM REPORT Advance Directives Directive Yes / No Effective Date File Name No Information Encounters Encounter Description Practice Location Reason(s) For Visit Diagnoses Date Provider Providers Copied on Encounter [facility], [address] [place] [address], [id number], tel:[phone] [facility] ER No Information Germain Moreno. [address] [place] [address], [id number], . tel:[phone] Referring Provider: Josh Groves, [facility] [place], [address]. tel:[phone] [facility], [address] [place] [address], [id number], tel:[phone] [facility] ER No Information Germain Moreno. [address] [place], [place] [address], [place], [id number], . tel:[phone] Referring Provider: Josh Groves, [facility] [place], [address]. tel:[phone] [facility], [address] [facility], [place], [place], [id number], tel:[phone] [facility] OP No Information Germain Moreno. [address] [facility], [place], [place], [id number], . tel:[phone] Referring Provider: Josh Groves, [address] [place] [address], [place], [address]. tel:[phone] Family History Family Member Type Diagnosis Age At Onset No Information Payers Payer name Insurance type Covered green party ID Authorlotus rey(s) [employer] [id number] Social History Type Description Quantity Date Captured Comments Sex Female Smoking Status No Information Chief Complaint And Reason For Visit No Information Reason For Referral Reason For Referral No Information History Of Present Illness Encounter Date Complaint History Of Prese nt Illness No Information Functional Status Date Functional Assessmen t No Information Instructions Date Instruction Additional Infor mation No Information Assessments Type Assessment Date No Information Patient Care Teams Name Effective Dates (start - stop) Status Members No Information
[2025-03-21] VITALS (11 sets, daily range): BP systolic 102–127; BP diastolic 72–92; PULSE 74–211; RESP 12–24; TEMP 36.5–36.9; O2SAT 100
--- NOTE | ~2025-03-21 | XR_ITS ---
Examination: XR chest 2V Clinical History: palpitations Comparison: 05/13/2024 Technique: PA and Lateral Findings: Cardiomediastinal silhouette normal size and configuration. Lungs clear. No acute bony abnormality. IMPRESSION: 1. No acute cardiopulmonary findings. Reviewed, dictated and finalized at location R.
--- NOTE | 2025-03-21 12:19 | ECG_ITS ---
Test Date: 2025-03-21 12:19:20 Measurements Intervals [place] Rate: 104 P: 66 VT: 164 QRS: 86 QRSD: 90 T: 49 QT: 330 QTc: 435 Interpretive Statements SINUS TACHYCARDIA LEFT ATRIAL ENLARGEMENT INCOMPLETE RIGHT BUNDLE BRANCH BLOCK DELAYED PRECORDIAL R/S TRANSITION MINIMAL Q WAVES- INFERIOR LEADS BORDERLINE ECG No previous ECG available for comparison Electronically Signed On 03-21-2025 13:18:57 CDT by Quirino Murphy D.O.
[2025-03-21 12:39] LABS: Hematocrit 41.8 % (37.0-47.0); Hemoglobin 14.0 g/dL (12.0-15.0); Immature Granulocyte Percent A 0.3 % (0-0.5); Lymphocytes Absolute Auto 2.82 K/mm3 (0.9-3.2); Mean Corpuscular HGB Conc 33.5 g/dl (32-36); Mean Corpuscular Hemoglobin 28.6 pg (26-34); Mean Corpuscular Volume 85.3 fl (80-100); Nucleated Red Blood Cells Absolute Auto 0.000 K/mm3 (0.0-0.012); Nucleated Red Blood Cells Perc 0.0 % (0.0-0.2); Platelet Count Result 279 k/mm3 (150-375); Red Blood Count 4.90 M/mm3 (4.2-5.4); White Blood Count 9.3 K/mm3 (4.5-10.0)
[2025-03-21] MEDS: KETOROLAC 30 MG/ML VIAL (*BKC) IV PUSH (12:44)
[2025-03-21 12:51] LABS: INR 1.0; Prothrombin Time 13.1 Seconds (11.1-14.7)
[2025-03-21 12:52] LABS: Partial Thromboplastin Time 27.2 Seconds (22.3-36.8)
[2025-03-21 12:54] LABS: Alanine Aminotransferase 19 U/L (6-35); Albumin Level 4.7 g/dL (3.5-5.1); Alkaline Phosphatase 80 U/L (38-126); Anion Gap 12 mmol/L (4-12); Aspartate Amino Transferase 31 U/L (14-36); Bilirubin,Total 0.8 mg/dL (0.2-1.3); Blood Urea Nitrogen 7 mg/dL (7-17); Calcium 8.9 mg/dL (8.4-10.2); Carbon Dioxide 19 mmol/L (22-30); Chloride 104 mmol/L (98-107); Estimated CRCL calculation 98 ml/min; Estimated Glomerular Filt Rate > 60; Glucose 129 mg/dL (65-110); Potassium 3.5 mmol/L (3.4-5.0); Sodium 135 mmol/L (137-145); Total Protein 8.7 g/dL (6.3-8.2)
[2025-03-21 13:01] LABS: NT Pro B Type Natriuretic Pept 115 pg/mL (19.9-100); Troponin I < 0.012 ng/mL (0.000-0.034)
[2025-03-21 13:05] LABS: Magnesium 1.7 mg/dL (1.6-2.3)
--- NOTE | 2025-03-21 14:27 | ED.CHESTPAIN ---
HPI - Chest Pain General Chief Complaint: Chest Pain Stated Complaint: CP History of Present Illness HPI narrative: Patient is a 44-year-old female who presents ER with chest pain. Patient arrives by EMS which is a BLS rig. They report hypotension with a blood pressure in the 80s and heart rate in the 200s. EKG does show SVT. Patient given a 10 cc syringe to blow into and had successful conversion into a sinus tachycardia. Chest pain resolving. Initially with sharp. Reports she goes into an arrhythmia once a month and sees a mobile lounge driver or operator at [facility]. She takes metoprolol 25 mg and missed today's dose. No fevers or chills or sweats. No productive cough. Related Data Home Medications ?Medication ?Instructions ?Recorded ?Confirmed ?Last Taken ?Type mirtazapine 45 mg tablet 45 mg PO DAILY 09/14/20 11/24/21 Unknown History hydrocodone 10 mg-acetaminophen 10 tablet PO DIRECTED 09/06/21 11/24/21 Unknown History 325 mg tablet albuterol sulfate 90 mcg/actuation 2 inh inhalation Q6H PRN Shortness 11/23/21 11/24/21 Unknown History aerosol inhaler Of Breath Or Wheezing loratadine 10 mg tablet 1 tablet PO DAILY 11/23/21 11/24/21 Unknown History Allergies Allergy/AdvReac Type Severity Reaction Status Date / Time oxycodone (From OxyContin) AdvReac Severe Nausea and Verified 03/21/25 12:27 Vomiting Review of Systems Review of Systems: All systems reviewed & are unremarkable except as noted in HPI and below Constitutional: Constitutional: Reports no additional constitutional complaints Cardiovascular: Cardiovascular: Reports no additional cardiovascular complaints Respiratory: Respiratory: Reports no additional respiratory complaints Gastrointestinal: Gastrointestinal: Reports no additional gastrointestinal complaints Musculoskeletal: Musculoskeletal: Reports no additional musculoskeletal complaints FOR[facility]LY [facility], [facility] Past Medical History Medical History (Updated 03/21/25 @ 18:21 by Brandon Schroeder MD) SVT (supraventricular tachycardia) History of small bowel obstruction Acute abdominal pain Anxiety Spina bifida Asthma Surgical History Surgical History History of right oophorectomy History of dilation and curettage History of arthroscopic knee surgery History of tubal ligation Family History Family History Mother Asthma Diabetes mellitus Bipolar disorder Social History Social History Social History: Surrogate decision maker: dana Etienne?. Code status: Full code. Smoking status: Never smoker Alcohol intake: never Substance use: never Substance use type: does not use Living arrangements: with family Additional living arrangements comments: Resides in [place] with her fijamal. Occupation/Education: occupation Additional occupation/education comments: Works at [employer]. Gender identity (if verbalized by the patient): Female Spiritual care concerns: No Exam Narrative: GENERAL: Uncomfortable-appearing, well-nourished, and in no acute distress. HEAD: Normocephalic, atraumatic. EYES: PERRL and EOMI. ENT: Mucous membranes moist. CHEST: Clear to auscultation. No respiratory distress. HEART: Tachycardic and regular. Normal peripheral pulses. ABDOMEN: Soft, nontender, nondistended. EXTREMITIES: Normal range of motion. No edema. SKIN: Warm, dry, no rash. NEURO: Alert and oriented x3. PSYCH: Normal mood and affect. Course Course Emergency Course: Patient resting comfortably. No additional events. Informed of results. Discussed case with Dr. Mendoza at [facility]. We will send images of the SVT rhythm strip through her patient care chart so he can help arrange an EP referral. Patient has follow-up on 03/29/2025. Patient was noncompliant with medication so she must restart it. She has verbalized understanding of this. Vital Signs Vital signs: Vital Signs Temperature 97.7 F 03/21/25 12:08 Pulse Rate 211 H 03/21/25 12:08 Respiratory Rate 24 H 03/21/25 12:08 Blood Pressure 127/88 03/21/25 12:08 Pulse Oximetry 100 03/21/25 12:08 Oxygen Delivery Room Air 03/21/25 12:08 Temperature 97.7 F 03/21/25 12:08 Pulse Rate 80 03/21/25 18:10 Respiratory Rate 17 03/21/25 18:10 Blood Pressure 114/87 03/21/25 18:10 Pulse Oximetry 100 03/21/25 18:10 Oxygen Delivery Room Air 03/21/25 12:25 MDM - Chest Pain Lab Data 03/21/25 12:26 03/21/25 12:26 Labs: Lab Results 03/21/25 03/21/25 03/21/25 Range/Units 12:26 15:26 16:48 WBC 9.3 (4.5-10.0) K/mm3 RBC 4.90 (4.2-5.4) M/mm3 Hgb 14.0 D (12.0-15.0) g/dL Hct 41.8 (37.0-47.0) % MCV 85.3 (80-100) fl MCH 28.6 (26-34) pg MCHC 33.5 (32-36) g/dl RDW 13.1 (11.5-14.5) % Plt Count 279 (150-375) k/mm3 MPV 10.5 H (7.4-10.4) fl Immature Gran % (Auto) 0.3 (0-0.5) % Neut % (Auto) 58.9 (45.5-73.1) % Lymph % (Auto) 30.4 (18.3-44.2) % Carter % (Auto) 8.6 H (2.6-8.5) % Eos % (Auto) 0.9 (0-4.4) % Baso % (Auto) 0.9 (0.2-1.2) % Lymph # (Auto) 2.82 (0.9-3.2) K/mm3 Carter # (Auto) 0.8 H (0.1-0.6) K/mm3 Eos # (Auto) 0.1 (0-0.3) K/mm3 Baso # (Auto) 0.1 (0.0-0.1) K/mm3 Abs Immat Gran (auto) 0.03 (0.00-0.031) K/mm3 Absolute Neuts (auto) 5.5 (1.3-6.7) K/mm3 Absolute Nucleated RBC 0.000 (0.0-0.012) K/mm3 Nucleated RBC % 0.0 (0.0-0.2) % PT 13.1 (11.1-14.7) Seconds INR 1.0 APTT 27.2 (22.3-36.8) Seconds Sodium 135 L (137-145) mmol/L Potassium 3.5 (3.4-5.0) mmol/L Chloride 104 (98-107) mmol/L Carbon Dioxide 19 L (22-30) mmol/L Anion Gap 12 (4-12) mmol/L BUN 7 (7-17) mg/dL Creatinine 0.62 L (0.7-1.0) mg/dL Estim Creat Clear Calc 98 ml/min Estimated GFR > 60 (59 - ) Glucose 129 H (65-110) mg/dL Calcium 8.9 (8.4-10.2) mg/dL Magnesium 1.7 (1.6-2.3) mg/dL Total Bilirubin 0.8 (0.2-1.3) mg/dL AST 31 (14-36) U/L ALT 19 (6-35) U/L Alkaline Phosphatase 80 (38-126) U/L Troponin I < 0.012 0.057 H* D (0.000-0.034) ng/mL NT-Pro-B Natriuret Pep 115 H (19.9-100) pg/mL Total Protein 8.7 H (6.3-8.2) g/dL Albumin 4.7 (3.5-5.1) g/dL Urine Color Yellow (Yellow) Urine Appearance Clear (Clear) Urine pH 8.0 (5.0-9.0) Ur Specific [place] 1.014 (1.001-1.035) Urine Protein 1+ H (Negative) mg/dL Urine Glucose (UA) Negative (Negative) mg/dL Urine Ketones 1+ H (Negative) mg/dL Ur Blood (Man) Negative (Negative) Urine Nitrate Negative (Negative) Urine Bilirubin Negative (Negative) Urine Urobilinogen 1.0 (<2.0) mg/dL Leukocyte Esterase Rfl Trace H (Negative) DG/UL Urine RBC 0-2 (0-2) /hpf Urine WBC 0-5 (0-3) /hpf Ur Squamous Epith Cells Moderate (Few) /hpf Urine Bacteria None seen /hpf Urine Casts 0-2 POC Urine HCG, Qual (Negative) Urine Opiates Screen Negative (Negative) Urine Methadone Screen Negative (Negative) Ur Barbiturates Screen Negative (Negative) Ur Phencyclidine Scrn Negative (Negative) Ur Amphetamine Screen Negative (Negative) U Benzodiazepines Scrn Negative (Negative) Urine Cocaine Screen Negative (Negative) U Cannabinoids Screen Negative (Negative) 03/21/25 Range/Units 16:50 WBC (4.5-10.0) K/mm3 RBC (4.2-5.4) M/mm3 Hgb (12.0-15.0) g/dL Hct (37.0-47.0) % MCV (80-100) fl MCH (26-34) pg MCHC (32-36) g/dl RDW (11.5-14.5) % Plt Count (150-375) k/mm3 MPV (7.4-10.4) fl Immature Gran % (Auto) (0-0.5) % Neut % (Auto) (45.5-73.1) % Lymph % (Auto) (18.3-44.2) % Carter % (Auto) (2.6-8.5) % Eos % (Auto) (0-4.4) % Baso % (Auto) (0.2-1.2) % Lymph # (Auto) (0.9-3.2) K/mm3 Carter # (Auto) (0.1-0.6) K/mm3 Eos # (Auto) (0-0.3) K/mm3 Baso # (Auto) (0.0-0.1) K/mm3 Abs Immat Gran (auto) (0.00-0.031) K/mm3 Absolute Neuts (auto) (1.3-6.7) K/mm3 Absolute Nucleated RBC (0.0-0.012) K/mm3 Nucleated RBC % (0.0-0.2) % PT (11.1-14.7) Seconds INR APTT (22.3-36.8) Seconds Sodium (137-145) mmol/L Potassium (3.4-5.0) mmol/L Chloride (98-107) mmol/L Carbon Dioxide (22-30) mmol/L Anion Gap (4-12) mmol/L BUN (7-17) mg/dL Creatinine (0.7-1.0) mg/dL Estim Creat Clear Calc ml/min Estimated GFR (59 - ) Glucose (65-110) mg/dL Calcium (8.4-10.2) mg/dL Magnesium (1.6-2.3) mg/dL Total Bilirubin (0.2-1.3) mg/dL AST (14-36) U/L ALT (6-35) U/L Alkaline Phosphatase (38-126) U/L Troponin I (0.000-0.034) ng/mL NT-Pro-B Natriuret Pep (19.9-100) pg/mL Total Protein (6.3-8.2) g/dL Albumin (3.5-5.1) g/dL Urine Color (Yellow) Urine Appearance (Clear) Urine pH (5.0-9.0) Ur Specific [place] (1.001-1.035) Urine Protein (Negative) mg/dL Urine Glucose (UA) (Negative) mg/dL Urine Ketones (Negative) mg/dL Ur Blood (Man) (Negative) Urine Nitrate (Negative) Urine Bilirubin (Negative) Urine Urobilinogen (<2.0) mg/dL Leukocyte Esterase Rfl (Negative) DG/UL Urine RBC (0-2) /hpf Urine WBC (0-3) /hpf Ur Squamous Epith Cells (Few) /hpf Urine Bacteria /hpf Urine Casts POC Urine HCG, Qual Negative (Negative) Urine Opiates Screen (Negative) Urine Methadone Screen (Negative) Ur Barbiturates Screen (Negative) Ur Phencyclidine Scrn (Negative) Ur Amphetamine Screen (Negative) U Benzodiazepines Scrn (Negative) Urine Cocaine Screen (Negative) U Cannabinoids Screen (Negative) Imaging Data Radiologist's impression: ITS Impressions Chest X-Ray 03/21/25 13:19 IMPRESSION: 1. No acute cardiopulmonary findings. ECG Data EKG #1: Attestation: I personally reviewed and interpreted this ECG as follows: ECG completion date: 03/21/25 ECG completion time: 15:26 EKG Interpretation: normal rate (78), sinus rhythm, no ST changes, normal QRS and normal QT Discharge Plan Discharge Clinical Impression: SVT (supraventricular tachycardia) Patient Disposition: Home Condition: Stable Instructions: Supraventricular Tachycardia (ED) Additional Instructions: Please return to the emergency department if you develop severe and persistent chest pain, difficulty breathing, dizziness, leg swelling or if you are coughing up blood as these can be signs of a medical emergency. Please call your doctor for a follow up appointment to determine the need for further testing. Take her metoprolol every day and do not miss a dose. Follow-up with your mobile lounge driver or operator. Patient Language: Russian Prescriptions: No Action albuterol sulfate 90 mcg/actuation HFA aerosol inhaler 2 inh INHALATION Q6H PRN (Reason: Shortness Of Breath Or Wheezing) loratadine 10 mg tablet 1 tablet PO DAILY hydrocodone-acetaminophen 10-325 mg tablet 10 tablet PO DIRECTED mirtazapine 45 mg Tablet 45 mg PO DAILY prednisone 20 mg tablet 60 mg PO DAILY 5 Days Qty: 15 0RF ibuprofen 400 mg tablet 400 mg PO TID PRN (Reason: fever or pain) 10 Days Qty: 30 0RF albuterol sulfate [Ventolin HFA] 90 mcg/actuation HFA aerosol inhaler 1 inhalation INHALATION QID 10 Days Qty: 6.7 0RF acetaminophen 500 mg capsule 500 mg PO Q6H PRN (Reason: fever or pain) Qty: 30 0RF norethindrone (contraceptive) [Renée] 0.35 mg tablet 0.35 mg PO DAILY 7 Days Qty: 7 0RF Rx Instructions: start day 1 of menstrual cycle ciprofloxacin HCl [Cipro] 500 mg tablet 500 mg PO Q12H Qty: 5 0RF Follow-up/Referrals: Brandon Mendoza [Other] - 1 Week Ramo,Fifi Cameron MD [Primary Care Provider]
--- OUTSIDE RECORDS SUMMARY | 2025-03-21 14:50 | XMS_ITS | Encounter Summary ---
Author Organization [facility] Address [address] [place] [address] Care Team Providers Care Supervisor Liquid Yeast Name Role Phone Fifi Ralph MD Primary Care Provider [phone] Brandon Mendoza MD Unavailable May Ortega MD Primary Care Prov ider Reason for Visit * Reason Onset Date Comments MEDICATION REFILL 09/01/2024 Encounter Details Date Type Department Care Team (Late st Contact Info) Description 09/01/2024 Refill [facility] [address] [place] [address] Khai Kline MD [address] [place] [id number] MEDICATION REFILL Social History Tobacco Use Types Packs/Day Years Used Date Smoking Tobacco: Unknown Alcohol Use Standard Drinks/Week Comments Never 0 (1 standard drink = 0.6 oz pur e alcohol) AUDIT-C Answer Date Recorded Q1: How often do you have a drink containing alc ohol? Patient declined 05/14/2024 Q2: How many drinks containi ng alcohol do you have on a typical day when you are drinking? Patient declined 05/14/2024 Q3: How often do you have si x or more drinks on one occasion? Patient declined 05/14/2024 Overall Financial Resource Strain (CARDIA) Answe r Date Recorded How hard is it for you to pa y for the very basics like food, housing, medical care, and heating? Not very hard 05/14/2024 PHQ-2 Answer Date Recorded Patient Health Questionnaire-2 Score 0 07/08/2024 [facility] of Occupat ional [facility] - Occupational Stress Questionnaire Answer Date Recorded Do you feel stress - tense, restless, nervous, or anxious, or unable to sleep at night because your mind is troubled all the time - these days? To some extent 05/14/2024 Hunger Vital Sign Answer Date Recorded Within the past 12 months, y ou worried that your food would run out before you got the money to buy more. Never true 05/14/20 Within the past 12 months, t he food you bought just didn't last and you didn't have money to get more. Never true 05/14/2024 PRAPARE - Transportation Answer Date Re corded In the past 12 months, has l ack of transportation kept you from medical appointments or from getting medications? No 04/26 In the past 12 months, has l ack of transportation kept you from meetings, work, or from getting things needed for daily living? No 05/14/2024 Housing Stability Vital Sign Answer Wilder e Recorded In the last 12 months, was t here a time when you were not able to pay the mortgage or rent on time? No 05/14/2024 In the past 12 months, how m any times have you moved where you were living? 1 05/14/2024 At any time in the past 12 m [facility], were you homeless or living in a assisted (including now)? No 05/14/2024 Comments Unknown Sex and Gender Information Value Date Recorded Sex Assigned at Not on file Legal Sex Female 5:47 PM CDT Gender Identity Not on file Sexual Orientation Not on file documented as of this encounter Functional Status * Is person deaf or have serious hearing difficulty? Answer Date of Assessment Author No 05/14/2024 1:30 AM Anabelle Mclaughlin * Is person blind or have serious difficulty seeing? Answer Date of Assessment Author No 05/14/2024 1:30 AM WAFER MOUNTER Sina, Anabelle chra * Does person have serious difficulty walking/climbing stairs? Answer Date of Assessment Author No 05/14/2024 1:30 AM WAFER MOUNTER Anabelle Andino chra * Does person have difficulty dressing/bathing? Answer Date of Assessment Author No 05/14/2024 1:30 AM WAFER MOUNTER Anabelle Andino chra * Does person have difficulty doing errands alone? Answer Date of Assessment Author No 05/14/2024 1:30 AM WAFER MOUNTER Anabelle Andino chra documented as of this encounter Mental Status * Does person have difficulty concentrating/remembering/making decisions? Answer Entry Date Author No 05/14/2024 1:30 AM WAFER MOUNTER Anabelle Andino chra documented in this encounter Miscellaneous Notes * Telephone Encounter - Khai Kline MD - 09/02/2024 12:15 PM CDT Received message forwarded from Carissa Muller MA I had seen this pt as a TCC appointment. The pt had her PCP move away- had not yet seen the practitioner assigned to her as a replacement yet. At the TCC appointment, she expressed interest in establishing care at [facility]. She has an upcoming new patient appointment on 09/15/2024. Refilling her hydrocortisone as prescribed at time of hospital discharge The pt had been scheduled to see Dr. Estrella in her office yesterday (09/11/2024,) and unfortunately no-showed. I spoke w/ Dr. Estrella due to concern that giving more hydrocortisone could prevent an accurate workup by endocrinology. Dr. Estrella recommended going ahead and refilling the hydrocortisone at 15mg in the morning, and 5mg in the afternoon to prevent adrenal crisis. I will encourage the pt to reschedule with endocrinology this afternoon. documented in this encounter Plan of Treatment Upcoming Encounters Date Type Department Care Team (Late st Contact Info) Description 03/29/2025 11:30 AM WAFER MOUNTER Office Visit [facility] [address] [place] [address] [address] [place] [address] Jazmine Lopez APRN-VIDEO SYSTEM REPAIRER [address] [place] [address] 04/15/2025 2:30 PM WAFER MOUNTER Appointment [facility] MATERNAL/ EVALUATION UNIT [address] [place] [address] 04/20/2025 2:00 PM WAFER MOUNTER Office Visit [facility] - Endocrinology [address], [address] [place] [phone] Choco Estrella MD [address] [place] [phone] documented as of this encounter Visit Diagnoses Not on filedocumented in this encounter Care Teams Supervisor Liquid Yeast Relationship Specialty Start Date End Date Fifi Ralph MD [address] [place] [address] [place] [id number] PCP - General Family Medicine 05/14/24 09/12/24 May Ortega MD [address] [place] [phone] PCP - General Student Resident 09/13/24 Brandon Mendoza MD [address] [place] [phone] [employer] Teacher Cardiology 09/01/24 documented as of this encounter
--- OUTSIDE RECORDS SUMMARY | 2025-03-21 14:50 | XMS_ITS | Encounter Summary ---
Author Organization [facility] Address [address] [place] [address] Care Team Providers Care Skin Drier Name Role Phone Fifi Ralph MD Primary Care Provider [phone] Brandon Mendoza MD Unavailable [phone] May Ortega MD Primary Care Prov ider Reason for Visit * Reason Onset Date Comments MEDICATION REFILL 08/24/2024 Encounter Details Date Type Department Care Team (Late st Contact Info) Description 08/24/2024 Refill Internal Medicine Clinic at [facility] [address] [place] [address] Khai Kline MD [address] [place] [phone] MEDICATION REFILL Social History Tobacco Use [...] Recorded Patient Health Questionnaire-2 Score 0 07/08/2024 [facility] of Occupat ional [facility] - Occupational Stress Questionnaire Answer Date Recorded [...] time in the past 12 m [facility], were you homeless or living in a [facility] (including now)? No 05/14/2024 Comments Unknown Sex and Gender Information Value Date Recorded Sex Assigned at Not on file Legal Sex Female 5:47 PM CDT Gender Identity Not on file Sexual Orientation Not on file documented as of this encounter Functional Status * Is person deaf or have serious hearing difficulty? Answer Date of Assessment Author No 05/14/2024 1:30 AM Anbaelle Mclaughlin * Is person blind or have serious difficulty seeing? Answer Date of Assessment Author No 05/14/2024 1:30 AM OPERATOR HELPER Sina, Anabelle chra * Does person have serious difficulty walking/climbing stairs? Answer Date of Assessment Author No 05/14/2024 1:30 AM OPERATOR HELPER Anabelle Andino chra * Does person have difficulty dressing/bathing? Answer Date of Assessment Author No 05/14/2024 1:30 AM OPERATOR HELPER Anabelle Andino chra * Does person have difficulty doing errands alone? Answer Date of Assessment Author No 05/14/2024 1:30 AM OPERATOR HELPER Anabelle Andino chra documented as of this encounter Mental Status * Does person have difficulty concentrating/remembering/making decisions? Answer Entry Date Author No 05/14/2024 1:30 AM OPERATOR HELPER Anabelle Andino chra documented in this encounter Plan of Treatment Upcoming Encounters Date Type Department Care Team (Late st Contact Info) Description 03/29/2025 11:30 AM OPERATOR HELPER Office Visit [facility] [address] [facility] [address] [place] [address] Jazmine Lopez APRN-CLINICAL LABORATORY SCIENCE PROFESSOR [address] [place] [address] [address] [place] [address] 04/15/2025 2:30 PM OPERATOR HELPER Appointment [facility] MATERNAL/ EVALUATION UNIT [address] [place] [address]. [address] [place] [address] 04/20/2025 2:00 PM OPERATOR HELPER Office Visit [facility] - Endocrinology [address] [facility], [address] [place] [phone] Choco Estrella MD [address] [place] [address] [address] [place] [phone] documented as of this encounter Visit Diagnoses Not on filedocumented in this encounter Care Teams Skin Drier Relationship Specialty Start Date End Date Fifi Ralph MD [address] [place] [address] Dr. [place] [id number] PCP - General Family Medicine 05/14/24 09/12/24 May Ortega MD [address] [place] [phone] PCP - General Student Resident 09/13/24 Brandon Mendoza MD [address] [facility] [address] [place] [address] Decontaminator Cardiology 09/01/24 documented as of this encounter
--- OUTSIDE RECORDS SUMMARY | 2025-03-21 14:50 | XMS_ITS | Clinical Summary ---
Author Organization [facility] Address [facility] [place] [address] Care Team Providers Care Route Sales Delivery Driver Name Role Phone Fifi Ralph MD Primary Care Provider [phone] Allergies No known active allergies Social History Tobacco Use Types Packs/Day Years Used Date Smoking Tobacco: Never Assessed Comments Unknown Sex and Gender Information Value Date Recorded Sex Assigned at Not on file Legal Sex Female 12:20 PM LINE CREW SUPERVISOR Gender Identity Not on file Sexual Orientation Not on file Last Filed Vital Signs Vital Sign Reading Time Taken Comments Blood Pressure 109/62 07/28/2021 3:30 PM LINE CREW SUPERVISOR Pulse 65 07/28/2021 12:30 PM LINE CREW SUPERVISOR Temperature 36.8 C (98.3 F) 07/28/2021 12:30 PM LINE CREW SUPERVISOR Respiratory Rate 18 07/28/2021 12:30 PM LINE CREW SUPERVISOR Oxygen Saturation 98% 07/28/2021 3:30 PM LINE CREW SUPERVISOR Inhaled Oxygen Concentration - - Weight 62.6 kg (138 lb) 07/28/2021 12:30 PM LINE CREW SUPERVISOR Height 170.2 cm (5' 7) 07/28/2021 12:30 PM LINE CREW SUPERVISOR Body Mass Index 21.61 07/28/2021 12:30 PM LINE CREW SUPERVISOR Plan of Treatment Health Maintenance Due Date Last Done Comments Cervical Cancer Screening Pa p Smear (Age 30 to 64) Every 3 Years 1982 Annual Physical 1985 Hepatitis C 2000 DTaP, Tdap and Td Vaccines ( 1 - Tdap) 2001 Hepatitis B Vaccines (1 of 3 - 19+ 3-dose series) 2001 HPV Vaccines (1 - 3-dose SCD M series) 2009 Cervical Cancer Screening Pa p with HPV Testing (Age 30 to 64) Every 5 Years 2012 Cervical Cancer Screening with HPV 2012 Mammogram Screening 2022 COVID-19 Vaccine (2024-2 6 season) 2025 Influenza Adult (#1) 2025 Hepatitis A Vaccines Aged Out No long er eligible based on patient's age to complete this topic Meningococcal B Vaccine Aged Out No l onger eligible based on patient's age to complete this topic Meningococcal Vaccine Aged Out No geno shadi eligible based on patient's age to complete this topic Pneumococcal Vaccine: Pediat rics (0 to 5 Years) and At-Risk Patients (6 to 49 Years) Aged Out No longer eligible b ased on patient's age to complete this topic RSV Immunizations Under 20 Months Aged Out No longer eligible based on patient's age to complete this topic Insurance [employer] Care Teams Route Sales Delivery Driver Relationship Specialty Start Date End Date Fifi Ralph MD [address] [place] [id number] PCP - General FAMILY PRACTICE 07/28/21
--- OUTSIDE RECORDS SUMMARY | 2025-03-21 14:50 | XMS_ITS | Encounter Summary ---
Author Organization [facility] Address [address] [place] [address] Care Team Providers Care Emergency Department Technician Name Role Phone Fifi Ralph MD Primary Care Provider [phone] Brandon Mendoza MD Unavailable [phone] May Ortega MD Primary Care Prov ider Reason for Visit * Reason Onset Date Comments MEDICATION REFILL 08/29/2024 Encounter Details Date Type Department Care Team (Late st Contact Info) Description 08/29/2024 Refill Internal Medicine Clinic at [facility] [address] [place] [id number] Khai Kline MD [address] [place] [phone] MEDICATION REFILL Social History Tobacco Use [...] Recorded Patient Health Questionnaire-2 Score 0 07/08/2024 [facility] of Occupat ional [facility] - Occupational Stress Questionnaire Answer Date Recorded [...] any time in the past 12 m [facility], were you homeless or living in a correction (including now)? No 05/14/2024 Comments Unknown Sex [...] of Assessment Author No 05/14/2024 1:30 AM CLINICAL BIOCHEMICAL GENETICIST Sina, Anabelle chra * Does person have serious difficulty walking/climbing stairs? Answer Date of Assessment Author No 05/14/2024 1:30 AM CLINICAL BIOCHEMICAL GENETICIST Anabelle Andino chra * Does person have difficulty dressing/bathing? Answer Date of Assessment Author No 05/14/2024 1:30 AM CLINICAL BIOCHEMICAL GENETICIST Anabelle Andino chra * Does person have difficulty doing errands alone? Answer Date of Assessment Author No 05/14/2024 1:30 AM CLINICAL BIOCHEMICAL GENETICIST Anabelle Andino chra documented as of this encounter Mental Status * Does person have difficulty concentrating/remembering/making decisions? Answer Entry Date Author No 05/14/2024 1:30 AM CLINICAL BIOCHEMICAL GENETICIST Anabelle Andino chra documented in this encounter Plan of Treatment Upcoming Encounters Date Type Department Care Team (Late st Contact Info) Description 03/29/2025 11:30 AM CLINICAL BIOCHEMICAL GENETICIST Office Visit [facility] [address] [facility] [address] [place] [address] Jazmine Lopez APRN-CONTROLLER INSTRUCTOR [address] [place] [address] [address] [place] [address] 04/15/2025 2:30 PM CLINICAL BIOCHEMICAL GENETICIST Appointment [facility] MATERNAL/ EVALUATION UNIT [address] [place] [address]. [address] [place] [address] 04/20/2025 2:00 PM CLINICAL BIOCHEMICAL GENETICIST Office Visit [facility] Medical [facility] - Endocrinology [address] [facility], [address] [place] [phone] Choco Estrella MD [address] [place] [address] [address] [place] [phone] documented as of this encounter Visit Diagnoses Not on filedocumented in this encounter Care Teams Emergency Department Technician Relationship Specialty Start Date End Date Fifi Ralph MD [address] [place] [address] Dr[place] [id number] PCP - General Family Medicine 05/14/24 09/12/24 May Ortega MD [address] [place] [id number] PCP - General Student Resident 09/13/24 Brandon Mendoza MD [address] [facility] [address] [place] [address] [facility] 09/01/24 documented as of this encounter
--- OUTSIDE RECORDS SUMMARY | 2025-03-21 14:50 | XMS_ITS | Patient Health Record ---
Author Organization [facility] Address [address] [place] [address] Care Team Providers Care Side Piece Coverer Name Role Phone Leanne Rm Primary Care Provider [phone] Reason For Referral No Information Social History Sex Assigned At : Social History Observation Description Sex Assigned At Female Plan Of Treatment No Information
--- OUTSIDE RECORDS SUMMARY | 2025-03-21 14:50 | XMS_ITS | Clinical Summary ---
Author Organization [facility] [employer] Address [address] [facility] [place] [address] Care Team Providers Care Clothes Ironer Name Role Phone Brandon Mendoza MD Unavailable [phone] May Ortega MD Primary Care Prov ider Source Comments [facility],non-owned Affiliates and Associated Physician Practices is amultiple site organization consisting of ambulatory clinics and hospital sitesin [place], [place]. This disclosure is being madepursuant to the Care Everywhere program and may not contain all information available regarding this patient. Last updated 18.[facility] Allergies Active Allergy Reactions Criticality Noted Date Comments Morphine Unknown 06/27/2024 States that she can overdose from taking too much. Oxycodone Vomiting High 08/23/2024 Medications * Be aware that medications may not be up to date on this document. Alwaysverify current medications with the patient. medroxyPROGEST ERone (Provera) 10 MG tablet Take 2 (two) tablets by mouth once daily for 10 days 120 tablet 2 5 Active acetaminophen (Tylenol) 325 MG tablet Take 2 (two) tablets by mouth every 6 hours as needed for Fever or Pain Maximum allowable Acetaminophen amount = 4 Grams (4000 mg) / 24 hours. 5 Active albuterol HFA (Proventil; Ventolin; Proair) 108 (90 Base) MCG/ACT inhaler Inhale 1 (one) puff by mouth every 6 hours as needed 8 g 5 Active ferrous sulfate 325 (65 FE) MG tablet Take 1 (one) tablet by mouth once daily 100 tablet 4 5 Active mirtazapine, disintegrating , (Remereon Soltab) 45 MG tablet Take 1 (one) tablet by mouth at bedtime 30 tablet 1 5 Active multivitamin (Opurity) CHEW tablet Take 1 (one) tablet by mouth once daily 100 tablet 2 5 Active PARoxetine (Paxil) 10 MG tablet Take 1 (one) tablet by mouth once daily 60 tablet 1 5 Active senna-docusate (Senokot-S) 8.6-50 MG tablet Take 1 (one) tablet by mouth once daily as needed for Constipation 30 tablet 2 5 Active vitamin D3 (Cholecalcifer ol) 25 MCG (1000 UNITS) tablet Take 2 (two) tablets by mouth once daily 60 tablet 5 Active predniSONE (Deltasone) 5 MG tablet Take 1 (one) tablet by mouth once daily 30 tablet 5 Active metoprolol succinate XL 24hr (Toprol XL) 25 MG tablet Take 1 (one) tablet by mouth 2 times daily 180 tablet 3 5 Active norethindrone 0.35 MG tablet Take 1 (one) tablet by mouth once daily 90 tablet 4 5 Active Active Problems Problem Noted Date Diagnosed Date Low back pain 11/29/2024 Insomnia 11/29/2024 Moderate persistent asthma without complication 11/29/2024 Iron deficiency anemia 05/14/2024 Mixed anxiety and depressive disorder 02/18/2020 Adrenal insufficiency Overview (11/29/2024): 05/16/24, morning cortisol was 1.5. 05/17/24 cosyntropin stimulation test. ACTH 1.8 (low). Cortisol level 10 and then 14. 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 Check labs today (prolactin, FSH/LH, TSH, IGF-1, cortisol, ACTH, BMP) and pituitary protocol MRI. As patient did not tolerate cortisol will start prednisone 5 mg daily and refer to endocrinology. Resolved Problems Problem Noted Date Diagnosed Date Resolved Date Tachycardia 07/08/2024 11/29/2024 Acute blood loss anemia 05/14/2024 07/0 11/2024 Vaginal bleeding 05/14/2024 11/29/2024 Hypokalemia 05/14/2024 11/29/2024 Hypomagnesemia 05/14/2024 11/29/2024 Chest pain, unspecified type 05/13/2024 05/14/2024 History of right oophorectomy 02/18/2020 11/29/2024 Encounters Date Type Department Care Team Description 02/13/2025 3:51 PM CDT - 02/13/2025 6:46 PM CDT Emergency ER at [address] [address] Albino Rice DO Chest pain, unspecified type; SVT (supraventricular tachycardia) (HCC); Dysfunctional uterine bleeding Discharge Disposition: Home or Self Care 02/13/2025 Travel 02/02/2025 Telephone Internal Medicine Clinic at [address] [address] May Ortega MD Follow-up 01/11/2025 7:30 PM CDT - 01/11/2025 8:36 PM CDT Emergency ER at [address] [address] Alondra Bingham DO Palpitations; Anxiety states; Chest pain, unspecified type Discharge Disposition: Home or Self Care 01/11/2025 Travel 01/11/2025 Telephone [facility] [address] [place] [address] [address] [place] [address] Brandon Mendoza MD Update 01/07/2025 1:30 PM CDT - 01/07/2025 11:59 PM CDT Hospital Encounter [facility]/ EVALUATION UNIT [address] [facility] [address] [facility] [place] [address] Tessa Dickinson MD Discharge Disposition: Home or Self Care 01/07/2025 Travel 12/24/2024 11:30 AM CDT Office Visit [facility] [address] [facility] [address] [place] [address] Brandon Mendoza MD Tachycardia (Primary Dx); Iron deficiency anemia due to chronic blood loss; Vaginal bleeding; Family history of coronary artery disease; Dyslipidemia from Last 3 Months Immunizations Immunization Administration Dates Next Due DTP, HISTORIC VACCINE 02/19/1991, 989,03/14/1988,10/30/1983,07/10/18 84 HEP B VACCINE, PED/ADOL 04/10/1998,09/02/1997 MMR VACCINE 01/26/1992,03/14/1988 POLIO OPV 01/09/1989,03/14/1988,10/30/1983 ,07/10/1983 Family History Medical History Relation Name Comments CAD (Coronary Artery Disease) Maternal Grandfather CAD (Coronary Artery Disease) Maternal Grandmother Cancer Paternal Grandfather Relation Name Status Comments Maternal Grandfather Maternal Grandmother Paternal Grandfather Social History Tobacco Use Types Packs/Day Years Used Date Smoking Tobacco: Unknown Tobacco Cessation:Counseling Given: No Alcohol Use Standard Drinks/Week Comments Never 0 [...] Answer Date Recorded Patient Health Questionnaire-2 Score 2 11/29/2024 [facility] Occupat ional Health - Occupational Stress Questionnaire Answer Date Recorded [...] money to buy more. Never true 05/14/20 24 Within the past 12 months, t he [...] any time in the past 12 m [facility], were you homeless or living in a snf (including now)? No 05/14/2024 Comments Unknown Sex and Gender Information Value Date Recorded Sex Assigned at Not on file Legal Sex Female 5:47 PM CDT Gender Identity Not on file Sexual Orientation Not on file Last Filed Vital Signs Vital Sign Reading Time Taken Comments Blood Pressure 124/88 02/13/2025 5:45 PM CDT Pulse 74 02/13/2025 6:15 PM CDT Temperature 36.8 C (98.2 F) 02/13/2025 4:03 PM CDT Respiratory Rate 19 02/13/2025 6:15 PM CDT Oxygen Saturation 99% 02/13/2025 6:15 PM CDT Inhaled Oxygen Concentration - - Weight 63.5 kg (140 lb) 02/13/2025 4:03 PM CDT Height 172.7 cm (5' 8) 02/13/2025 4:03 PM CDT Body Mass Index 21.29 02/13/2025 4:03 PM CDT Plan of Treatment Upcoming Encounters Date Type Department Care Team (Late st Contact Info) Description 03/29/2025 11:30 AM VASCULAR NURSE Office Visit [facility] [address] [facility] [address] [place] [address] Jazmine Lopez APRN-B AND B GANG WORKER [address] [place] [address] [address] [place] [address] 04/15/2025 2:30 PM VASCULAR NURSE Appointment [facility] MATERNAL/ EVALUATION UNIT [address] [place] [address]. [address] [place] [address] 04/20/2025 2:00 PM VASCULAR NURSE Office Visit [facility] - Endocrinology [address] [facility] [facility], [address] [place] [address] Choco Estrella MD [address] [facility] [address] [place] [address] Health Maintenance Due Date Last Done Comments MAMMOGRAM 1982 DTAP/TDAP/TD VACCINES (5 - Tdap) 1993 02/19/1991, 01/09/1989, 03/14/1988, Additional history exists HEPATITIS B VACCINE (3 of 3 - 3-dose series) 06/05/1998 04/10/1998, 09/02/1997 PNEUMOCOCCAL VACCINE (1 of 2 - PCV) 2001 HPV VACCINE (1 - 3-dose SCDM series) 2009 COVID-19 VACCINE (1 - season) 2025 INFLUENZA VACCINE (#1) 2025 PAP with HPV 07/27/2029 07/27/2024 LIPID TESTING 08/23/2029 08/23/2024 ZOSTER VACCINE (1 of 2) 2032 DEPRESSION SCREENING Completed 07/08/2024 HEPATITIS C SCREENING Completed 07/27/2024 HIV SCREENING Completed 07/27/2024 HIB VACCINE Aged Out No longer eligi ble based on patient's age to complete this topic MENINGOCOCCAL (Group B) VACCINE SHARED DECISION-MAKING Aged Out No longer eligible based on patient's age to complete this topic MENINGOCOCCAL GROUPS A/C/Y/W VACCINE Aged Out No longer eligible based on patient's age to complete this topic Procedures Procedure Name Priority Date/Time Associated Diagnosis Comments CARDIAC EKG ORDER 02/14/2025 9:5 5 PM CDT XR CERVICAL SPINE 2 OR 3VW STAT 02/13/2025 5:13 PM CDT Chest pain, unspecified type XR CHEST 1VW PORTABLE STAT 02/13/2025 5:12 PM CDT Chest pain, unspecified type TSH REFLEX FREE T4 STAT 02/13/2025 4: 30 PM CDT MAGNESIUM BLOOD STAT 02/13/2025 4:30 PM CDT HCG BLOOD QUALITATIVE STAT 02/13/2025 4:30 PM CDT COMPREHENSIVE METABOLIC PANEL STAT 02/13/2025 4:30 PM CDT CBC W AUTO DIFFERENTIAL STAT 02/13/2025 4:30 PM CDT EKG 12-LEAD STAT 02/13/2025 4:12 PM CDT Chest pain, unspecified type CARDIAC EKG ORDER 01/12/2025 7:3 7 PM CDT XR CHEST 2VW STAT 01/11/2025 5:11 PM CDT Palpitations EKG 12-LEAD STAT 01/11/2025 4:32 PM CDT Palpitations HCG BLOOD QUALITATIVE STAT 01/11/2025 4:26 PM CDT TROPONIN-I HIGH SENSITIVE STAT 01/11/2025 4:26 PM CDT COMPREHENSIVE METABOLIC PANEL STAT 01/11/2025 4:26 PM CDT CBC W AUTO DIFFERENTIAL STAT 01/11/2025 4:26 PM CDT HCG URINE QUALITATIVE - POCT (IP) INTERFACED Routine 01/07/2025 2:04 PM CDT LIPID PROFILE Routine 08/23/2024 9:48 AM CDT Iron deficiency anemia due to chronic blood loss Tachycardia HEPATITIS C ANTIBODY Routine 07/27/2024 3:04 PM VASCULAR NURSE Abnormal uterine bleeding (AUB) HIV-1 HIV-2 ANTIBODY + HIV P24 AG PANEL Routine 07/27/2024 3:04 PM VASCULAR NURSE Abnormal uterine bleeding (AUB) PAP IG LB+HPV APTIMA Routine 07/27/2024 3:03 PM VASCULAR NURSE Abnormal uterine bleeding (AUB) from Last 3 Months or Most Recently Relevant to Health Maintenance Results * CARDIAC EKG ORDER (02/14/2025 9:55 PM CDT) Only the most recent of2 resultswithin the time period is included. Narrative 02/14/2025 9:55 PM CDT Ordered by an unspecified provider. us Scanned Document CARDIAC SERVICES ORDERABLES Fin al Result * XR Cervical Spine 2 or 3Vw (02/13/2025 5:13 PM CDT) Anatomical Region Laterality Modality Spine Radiographic Marta ging 02/13/2025 5:22 PM CDT Impressions 02/13/2025 6:14 PM CDT IMPRESSION: 1. No acute findings 2. Mild lower cervical spondylosis > Interpreting Provider: Alpa Cisneros MD on 02/13/2025 6:14 PM Narrative 02/13/2025 6:14 PM CDT PROCEDURE: XR CERVICAL SPINE 2 OR 3VW DATE/TIME OF EXAM: 02/13/2025 5:13 PM CLINICAL INFORMATION: None relevant/not provided if blank. Indication: R07.9: Chest pain, unspecified type Additional History: COMPARISON: Plain films from 05/14/2024 FINDINGS: No cervical spine fracture, subluxation or prevertebral swelling. Mild spondylosis at C5-C6 and C6-C7. Cervical lordosis is straightened which is often incidental but sometimes can indicate spasm. However the appearance is similar to last year's radiograph. Procedure Note Alpa Cisneros MD - 02/13/2025 PROCEDURE: XR CERVICAL SPINE 2 OR 3VW DATE/TIME OF EXAM: 02/13/2025 5:13 PM CLINICAL INFORMATION: None relevant/not provided if blank. Indication: R07.9: Chest pain, unspecified type Additional History: COMPARISON: Plain films from 05/14/2024 FINDINGS: No cervical spine fracture, subluxation or prevertebral swelling. Mild spondylosis at C5-C6 and C6-C7. Cervical lordosis is straightened whichis often incidental but sometimes can indicate spasm. However theappearance is similar to last year's radiograph. IMPRESSION: 1. No acute findings 2. Mild lower cervical spondylosis > Interpreting Provider: Alpa Cisneros MD on 02/13/2025 6:14 PM Albino Rice DO DIAGNOSTIC IMAGING [facility] Final Result * XR CHEST 1VW PORTABLE (02/13/2025 5:12 PM CDT) Anatomical Region Laterality Modality Chest Radiographic Marta ging 02/13/2025 5:21 PM CDT Impressions 02/13/2025 5:22 PM CDT IMPRESSION: Normal > Interpreting Provider: Alpa Cisneros MD on 02/13/2025 5:22 PM Narrative 02/13/2025 5:22 PM CDT PROCEDURE: XR CHEST 1VW PORTABLE DATE/TIME OF EXAM: 02/13/2025 5:13 PM CLINICAL INFORMATION: None relevant/not provided if blank. Indication: R07.9: Chest pain, unspecified type Additional History: COMPARISON: Chest from 01/11/2025 FINDINGS: The lungs are clear and free of effusion. The heart, mediastinum and bony thorax are normal. Procedure Note Alpa Cisneros MD - 02/13/2025 PROCEDURE: XR CHEST 1VW PORTABLE DATE/TIME OF EXAM: 02/13/2025 5:13 PM CLINICAL INFORMATION: None relevant/not provided if blank. Indication: R07.9: Chest pain, unspecified type Additional History: COMPARISON: Chest from 01/11/2025 FINDINGS: The lungs are clear and free of effusion. The heart, mediastinum andbony thorax are normal. IMPRESSION: Normal > Interpreting Provider: Alpa Cisneros MD on 02/13/2025 5:22 PM [facility] Luis Fernando Chapa DO DIAGNOSTIC IMAGING [facility] Final Result * TSH REFLEX FREE T4 (02/13/2025 4:30 PM CDT) Pathologist [facility] TSH 2.661 0.350 - 4.940 uIU/mL 02/13/2025 5:07 PM CDT [facility] Blood BLOOD SPECIMEN / Unknown Venipuncture / Unknown 02/13/2025 4:30 PM CDT 02/13/2025 4:30 PM CDT [facility] LAB - CHEMISTRY ORDERAB LES Final Result [facility] [address] [place] [id number] * CBC W AUTO DIFFERENTIAL (02/13/2025 4:30 PM CDT) Only the most recent of2 resultswithin the time period is included. [facility] WBC 6.9 4.0 - 10.7 x10E9/L 02/13/2025 4:33 PM CDT [facility] RBC Count 4.16 3.90 - 5.20 x10E12/L 02/13/2025 4:33 PM CDT [facility] Hemoglobin 12.0 11.9 - 15.8 g/dL 02/13/2025 4:33 PM CDT [facility] Hematocrit 36.3 34.8 - 46.1 % 02/13/2025 4:33 PM CDT [facility] MCV 87.3 80.0 - 98.0 fL 02/13/2025 4:33 PM CDT [facility] MCH 28.8 26.7 - 33.6 pg 02/13/2025 4:33 PM CDT [facility] MCHC 33.1 31.7 - 36.3 g/dL 02/13/2025 4:33 PM CDT [facility] RDW-CV 13.5 11.3 - 14.8 % 02/13/2025 4:33 PM CDT [facility] Platelet Count 243 150 - 420 x10E9/L 02/13/2025 4:33 PM CDT [facility] MPV 10.2 7.8 - 11.4 fL 02/13/2025 4:33 PM CDT [facility] Neutrophil % 68.2 41.0 - 74.0 % 02/13/2025 4:33 PM CDT [facility] Lymphocyte % 21.9 17.0 - 47.0 % 02/13/2025 4:33 PM CDT [facility] Monocyte % 7.2 3.0 - 11.0 % 02/13/2025 4:33 PM CDT [facility] Eosinophil % 1.6 0.0 - 7.0 % 02/13/2025 4:33 PM CDT [facility] Basophil % 0.7 0.0 - 1.6 % 02/13/2025 4:33 PM CDT [facility] Immature Granulocytes % 0.4 0.0 - 1.0 % 02/13/2025 4:33 PM CDT [facility] Neutrophil Absolute 4.70 1.60 - 7.50 x10E9/L 02/13/2025 4:33 PM CDT [facility] Lymphocyte Absolute 1.51 1.00 - 4.40 x10E9/L 02/13/2025 4:33 PM CDT [facility] Monocyte Absolute 0.50 0.15 - 1.00 x10E9/L 02/13/2025 4:33 PM CDT [facility] Eosinophil Absolute 0.11 0.00 - 0.60 x10E9/L 02/13/2025 4:33 PM CDT [facility] Basophil Absolute 0.05 0.00 - 0.13 x10E9/L 02/13/2025 4:33 PM CDT [facility] Blood BLOOD SPECIMEN / Unknown Venipuncture / Unknown 02/13/2025 4:30 PM CDT 02/13/2025 4:30 PM CDT Albino Rice LAB - HEMATOLOGY ORDERA BLES Final Result [facility] [address] [place] [address] * (ABNORMAL) COMPREHENSIVE METABOLIC PANEL (02/13/2025 4:30 PM CDT) Only the most recent of2 resultswithin the time period is included. [facility] Glucose 83 70 - 99 mg/dL 02/13/2025 4:49 PM CDT [facility] Sodium 141 136 - 145 mmol/L 02/13/2025 4:49 PM CDT [facility] Potassium 3.9 3.5 - 5.1 mmol/L 02/13/2025 4:49 PM CDT [facility] Chloride 114(H) 98 - 107 mmol/L 02/13/2025 4:49 PM CDT [facility] CO2 21(L) 22 - 29 mmol/L 02/13/2025 4:49 PM CDT [facility] Calcium 8.6 8.4 - 10.4 mg/dL 02/13/2025 4:49 PM CDT [facility] Anion Gap 6 6 - 16 mmol/L 02/13/2025 4:49 PM CDT [facility] BUN 8 5.3 - 18.7 mg/dL 02/13/2025 4:49 PM CDT [facility] Creatinine 0.71 0.57 - 1.11 mg/dL 02/13/2025 4:49 PM CDT [facility] Alkaline Phosphatase 55 40 - 150 U/L 02/13/2025 4:49 PM CDT [facility] ALT 14 6 - 57 U/L 02/13/2025 4:49 PM CDT [facility] AST 21 10 - 48 U/L 02/13/2025 4:49 PM CDT [facility] Protein Total 6.9 6.4 - 8.3 gm/dL 02/13/2025 4:49 PM CDT [facility] Albumin 3.9 3.1 - 4.5 gm/dL 02/13/2025 4:49 PM CDT [facility] Bilirubin Total 0.4 0.2 - 1.2 mg/dL 02/13/2025 4:49 PM CDT [facility] eGFR by CKD-EPI >90 >=90 mL/min/1.7 3 m2 02/13/2025 4:49 PM CDT [facility] Comment:Estimated Glomerular Filtration Rate (eGFR) calculated using the CKD-EPI Creatinine Equation (2020), per the National Kidney Foundation and [employer] Society of Nephrology recommendations. Blood BLOOD SPECIMEN / Unknown Venipuncture / Unknown 02/13/2025 4:30 PM CDT 02/13/2025 4:30 PM CDT Albino Rice LAB - CHEMISTRY ORDERAB LES Final Result [facility] [address] [place], [place] [id number] * MAGNESIUM BLOOD (02/13/2025 4:30 PM CDT) Magnesium 1.8 1.6 - 2.6 mg/dL 02/13/2025 4:49 PM CDT [facility] Blood BLOOD SPECIMEN / Unknown Venipuncture / Unknown 02/13/2025 4:30 PM CDT 02/13/2025 4:30 PM CDT Albino Rice LAB - CHEMISTRY ORDERAB LES Final Result Performing Organization Address City/[facility]/ZIP Co de Phone Number [facility] [address] [place] [id number] * HCG BLOOD QUALITATIVE (02/13/2025 4:30 PM CDT) Only the most recent of2 resultswithin the time period is included. HCG Qual Serum Negative Negative 02/13/2025 4:43 PM CDT [facility] Blood BLOOD SPECIMEN / Unknown Venipuncture / Unknown 02/13/2025 4:30 PM CDT 02/13/2025 4:30 PM CDT Narrative [facility] - 02/13/2025 4:43 PM CDT Specimens containing human anti-mouse antibodies may exhibit false positive or false negative results. If qualitative interpretation is inconsistent with clinical evaluation, consider confirmation by an alternative hCG method. Albino Rice DO LAB - CHEMISTRY ORDERAB LES Final Result Performing Organization Address [facility] Co de Phone Number [facility] [address] [place] [address] * EKG 12-Lead (02/13/2025 4:12 PM CDT) Only the most recent of2 resultswithin the time period is included. Ventricular Rate 90 BPM [facility] Atrial Rate 90 BPM [facility] P-R Interval 158 ms [facility] QRS Duration ms 82 ms [facility] Q-T Interval ms 352 ms [facility] QTC Calculation (Bezet) 430 ms [facility] Calculated P [place] 43 degrees [facility] Calculated R [place] 65 degrees [facility] Calculated T [place] 31 degrees [facility] Interpretation EKG NORMAL SINUS RHYTHM LEFT ATRIAL ENLARGEMENT POSSIBLE INFERIOR INFARCT ABNORMAL ECG Confirmed by MD Marck, Dylon ([id number]) on 02/14/2025 7:43:03 AM [facility] MUSE 02/13/2025 4:12 PM CDT 02/14/2025 7:43 AM CDT Albino Rice DO ECG ORDERABLES Edited Result - Final Performing Organization Address [facility] de Phone Number [facility] * XR CHEST 2VW (01/11/2025 5:11 PM CDT) Anatomical Region Laterality Modality Chest Radiographic Marta ging 01/11/2025 5:16 PM CDT Impressions 01/11/2025 5:18 PM CDT IMPRESSION: Hyperinflation without acute pulmonary disease. > Interpreting Provider: Derick Bunch MD on 01/11/2025 5:18 PM Narrative 01/11/2025 5:18 PM CDT PROCEDURE: XR CHEST 2VW DATE/TIME OF EXAM: 01/11/2025 5:12 PM CLINICAL INFORMATION: None relevant/not provided if blank. Indication: R00.2: Palpitations Additional History: COMPARISON: 05/17/2024 FINDINGS: The lungs are hyperinflated but free of focal consolidation, pleural effusion, or pneumothorax. The cardiomediastinal silhouette is within normal limits for technique.No acute osseous abnormality is identified. Procedure Note Derick Bunch MD - 01/11/2025 PROCEDURE: XR CHEST 2VW DATE/TIME OF EXAM: 01/11/2025 5:12 PM CLINICAL INFORMATION: None relevant/not provided if blank. Indication: R00.2: Palpitations Additional History: COMPARISON: 05/17/2024 FINDINGS: The lungs are hyperinflated but free of focal consolidation, pleural effusion, or pneumothorax. The cardiomediastinal silhouette is within normal limits for technique.No acute osseous abnormality is identified. IMPRESSION: Hyperinflation without acute pulmonary disease. > Interpreting Provider: Derick Bunch MD on 01/11/2025 5:18 PM [facility] DIAG[facility]STIC [facility]AG[facility] ORDERABLES Final Result * TROPONIN-I HIGH SENSITIVE (01/11/2025 4:26 PM CDT) [facility] Troponin I High Sensitive <3 <=14 ng/L 01/11/2025 4:50 PM CDT [facility] Blood BLOOD SPECIMEN / Unknown Venipuncture / Unknown 01/11/2025 4:26 PM CDT 01/11/2025 4:29 PM CDT [facility] LAB - CHEMISTRY ORDERABLES Fi nal Result [facility] [address] [place] [id number] * HCG URINE QUALITATIVE - POCT (IP) INTERFACED (01/07/2025 2:04 PM CDT) [facility] HCG Qual Urine Negative Negative 01/07/2025 2:10 PM CDT [facility] Urine URINE / Unknown 01/07/2025 2 :04 PM CDT 01/07/2025 2:10 PM CDT Tessa Dickinson MD LAB - POINT OF CARE ORDERABLES Final Result [facility] [address] [place] [address] * (ABNORMAL) LIPID PROFILE (08/23/2024 9:48 AM CDT) Cholesterol 167 100 - 199 mg/dL [facility] INSURANCE BILL Triglycerides 56 0 - 149 mg/dL [facility] INSURANCE BILL HDL Cholesterol 43 >39 mg/dL [facility] INSURANCE BILL VLDL Calculated 11 5 - 40 mg/dL [facility] INSURANCE BILL LDL Calculated 113(H) 0 - 99 mg/dL [facility] INSURANCE BILL Blood BLOOD SPECIMEN / Unknown 08/23/2024 9:48 AM CDT 08/23/2024 Narrative [facility] INSURANCE BILL - 08/24/2024 8:12 AM CDT Performed at: - [facility] [address] [place], [place] [id number] Inorganic Chemist: Vinicius Topete PhD, Phone: [phone] us Brandon Mendoza MD LAB - CHEMISTRY ORDERABLES Fin al Result Performing Organization Address [facility] Co de Phone Number [facility] INSURANCE BILL [address] [place] [address] * HIV-1 HIV-2 ANTIBODY + HIV P24 AG PANEL (07/27/2024 3:04 PM VASCULAR NURSE) Pathologist [facility], [place] HIV1/2 Ab + P24 Ag Non Reactive Non Reactive 07/27/2024 3:59 PM VASCULAR NURSE [facility] Blood BLOOD SPECIMEN / Unknown Venipuncture / Unknown 07/27/2024 3:04 PM VASCULAR NURSE 07/27/2024 3:18 PM VASCULAR NURSE Narrative [facility] - 07/27/2024 3:59 PM VASCULAR NURSE No Laboratory evidence of HIV infection. us Jewell Reece MD LAB - CHEMISTRY ORDERABLES Final Result Performing Organization Address City/[facility]/ZIP Co de Phone Number [facility] [address] [place] [address] * HEPATITIS C ANTIBODY (07/27/2024 3:04 PM VASCULAR NURSE) HCV Antibody Screen Non Reactive Non Reactive 07/27/2024 4:00 PM VASCULAR NURSE [facility] Blood BLOOD SPECIMEN / Unknown Venipuncture / Unknown 07/27/2024 3:04 PM VASCULAR NURSE 07/27/2024 3:18 PM VASCULAR NURSE Narrative [facility] - 07/27/2024 4:00 PM VASCULAR NURSE Non Reactive - Antibodies to Hepatitis C virus (HCV) were not detected, result does not exclude early acute HCV infection. us Jewell Reece MD LAB - CHEMISTRY ORDERABLES Final Result [facility] [address] [place] [address] * PAP IG LB+HPV APTIMA (07/27/2024 3:03 PM VASCULAR NURSE) Diagnosis Comment 07/31/2024 7:09 AM VASCULAR NURSE [facility] ([facility]) Comment:NEGATIVE FOR INTRAEP ITHELIAL LESION OR MALIGNANCY. Specimen Adequacy Comment 025 7:09 AM VASCULAR NURSE [facility] ([facility]) Comment: Satisfactory for evaluation. Endocervical and/or squamous metaplastic cells (endocervical component) are present. Performed by Comment 07/31/2024 7:09 AM VASCULAR NURSE [facility] ([facility]) Comment:Taras Clemons totechnologist Comment . 07/31/2024 7:09 AM VASCULAR NURSE [facility] ([facility]) Note Comment 07/31/2024 7:09 AM VASCULAR NURSE [facility] ([facility]) Comment: The Pap smear is a screening test designed to aid in the detection of premalignant and malignant conditions of the uterine cervix. It is not a diagnostic procedure and should not be used as the sole means of detecting cervical cancer. Both false-positive and false-negative reports do occur. IGLBP CPT Code Automation Comment 07/31/2024 7:09 AM VASCULAR NURSE [facility] ([facility]) Comment: This liquid based ThinPrep(R) pap test was screened with the use of an image guided system. Human papillomavirus Aptima Negative Negative 07/31/2024 7:09 AM VASCULAR NURSE [facility] ([facility]) Comment: This nucleic acid amplification test detects fourteen high-risk HPV types (16,18,31,33,35,39,45,51,52,56,58,59,66,68) without differentiation. Pathology/Cytolo gy PART OF UTERINE CERVIX / Unknown Collection / Unknown 07/27/2024 3:03 PM VASCULAR NURSE 07/27/2024 3:18 PM VASCULAR NURSE Narrative [facility] ([facility]) - 07/31/2024 7:09 AM VASCULAR NURSE Performed at: - [facility] [id number] Inorganic Chemist: Federica Jeong MD, Phone: [phone] Performed at: - [facility] [id number] Inorganic Chemist: Federica Jeong MD, Phone: [phone] Specimen Comment: No. of containers..01 ThinPrep Vial Jewell Reece MD LAB - PATHOLOGY/CYTOLOGY ORDERAB LES Final Result Performing Organization Address City/State/[facility] Co de Phone Number [facility] ([facility]) [address] [place] [address] from Last 3 Months or Most Recently Relevant to Health Maintenance Insurance MEDICAID - [place] Advance Directives * Full Code (Latest Code Status on File) Date Activated Date Inactivated Comments 05/13/2024 11:21 PM 05/21/2024 5:20 PM Care Teams Clothes Ironer Relationship Specialty Start Date End Date May Ortega MD [address] [place] [address] PCP - General Student Resident 09/13/24 Brandon Mendoza MD [address] [facility] [address] [place] [id number] Ash Kier Boiler Cardiology 09/01/24
--- NOTE | 2025-03-21 15:18 | ECG_ITS ---
Test Date: 2025-03-21 15:26:34 Measurements Intervals [place] Rate: 78 P: 23 MS: 148 QRS: 64 QRSD: 88 T: 34 QT: 378 QTc: 431 Interpretive Statements SINUS RHYTHM CONSIDER RIGHT VENTRICULAR CONDUCTION DELAY DELAYED PRECORDIAL R/S TRANSITION BASELINE ARTIFACT- I, II, AVR BORDERLINE ECG Compared to ECG 03/21/2025 12:19:20 HEART RATE HAS DECREASED Electronically Signed On 03-21-2025 16:39:25 CDT by Quirino Murphy D.O.
[2025-03-21 15:58] LABS: Troponin I 0.057 ng/mL (0.000-0.034)
--- NOTE | 2025-03-21 16:04 | PC.NURSE ---
Pt refused straight cath.
[2025-03-21 16:58] LABS: BEDSIDEPREGUCG Negative (Negative)
[2025-03-21 17:02] LABS: Add Urine Microscopic? YES; Appearance Urine Clear (Clear); Glucose Urine UA Negative (Negative); Leukocyte Esterase Ur Trace LEU/UL (Negative); Nitrate Urine Negative (Negative); Non Pathogenic Casts 0-2; Specific Grav Ur 1.014 (1.001-1.035)
[2025-03-21 17:14] LABS: Cannabinoid Screen Urine Negative (Negative)
== END 2025-03-21 18:55 | disposition home or self-care (01) ==
PROVIDERS: Emergency Provider Emergency Medicine; PCP Family Medicine
DX: I47.10 Supraventricular tachycardia, unspecified (principal); F41.9 Anxiety disorder, unspecified; J45.909 Unspecified asthma, uncomplicated
CPT/HCPCS: 36415; 71046; 80053; 80307; 81001; 81025; 83735; 83880; 84484; 85025; 85610; 85730; 93005; 96374; 99284; J1885